=== PATIENT | male | born 1935 ===

== ENCOUNTER 2017-09-02 22:53 | Inpatient (IN) | payer MEDICARE, MEDICAID ==
[2017-09-02 22:53] VITALS: PULSE 87; BMI 25.8
[2017-09-02] MEDS ORDERED: Sodium Chloride 0.9% 1,000 ML IV STA (23:34)
[2017-09-03 00:06] LABS: ABG ALLEN TEST YES; ARTERIAL BLOOD GAS HCO3 30.2 mmol/L (21-28); ARTERIAL BLOOD GAS O2 SAT 99.9 % (95-98); ARTERIAL BLOOD GAS PCO2 32 mm/Hg (35-45); ARTERIAL BLOOD GAS PH 7.56 (7.35-7.45); ARTERIAL BLOOD GAS PO2 145 mm/Hg (80-100); ARTERIAL BLOOD GAS TCO2 29.7 mmol/L (22-28)
[2017-09-03 01:07] LABS: BASO % 0.2 % (0.0-2.0); EOS # 0.1 K/uL (0.0-0.7); EOS % 1.6 % (0.0-4.0); HEMOGLOBIN 8.8 g/dL (12.0-18.0); LYMPH # 0.8 K/uL (1.0-4.3); LYMPH % 11.4 % (20.0-40.0); MEAN CELL VOLUME 85.6 fl (80.0-94.0); MEAN CORPUSCULAR HEMOGLOBIN 28.1 pg (27.0-31.0); MEAN CORPUSCULAR HGB CONC 32.9 g/dL (33.0-37.0); MEAN PLATELET VOLUME 8.7 fl (7.2-11.7); MONO # 0.3 K/uL (0.0-0.8); MONO % 4.8 % (0.0-10.0); NEUT # 5.5 K/uL (1.8-7.0); NRBC % 0.1 % (0.0-0.0); RBC 3.14 Mil/uL (4.40-5.90); RED CELL DISTRIBUTION WIDTH 14.6 % (11.5-14.5); WHITE BLOOD COUNT 6.7 K/uL (4.8-10.8)
[2017-09-03 01:12] LABS: ALB/GLOB RATIO 1.2 (1.0-2.1); ALBUMIN 3.6 g/dL (3.5-5.0); ALT/SGPT 22 U/L (21-72); AST/SGOT 41 U/L (17-59); BLOOD UREA NITROGEN 27 mg/dl (9-20); CALCIUM 9.4 mg/dL (8.4-10.2); GFR AFRICAN-AMERICAN > 60; GFR NON-AFRICAN AMERICAN 58
[2017-09-03 01:18] LABS: INR 1.3 (0.9-1.2); PARTIAL THROMBOPLASTIN TIME 30.5 Seconds (25.6-37.1); PROTHROMBIN TIME 14.3 Seconds (9.8-13.1)
[2017-09-03] MEDS ORDERED: Azithromycin 500 MG in Sodium Chloride 0.9% 250 ML IVPB STA (01:21)
--- NOTE | 2017-09-03 01:22 | ED PDOC ---
History of Present Illness History of Present Illness: 81 year old male brought in by EMS presents to ED from detention for fever x24 hours and has a past medical history of advanced dementia, HTN, CAD, SVT, and CHF. On arrival patient's temperature is 102.9 degrees. PCP: Gerard iVera HPI: Influenza Time Seen by Provider: 09/02/17 23:01 Chief Complaint: Fever Chief Complaint (Provider): Fever History Per: EMS, Other (longterm) Exam Limitations: clinical condition (advanced dementia) Symptoms include: fever Risk factors for flu complications: Yes: adult > 65 years Past Medical History Reviewed: Historical Data, Nursing Documentation, Vital Signs Vital Signs: Last Vital Signs Temp 102.6 F H 09/02/17 23:59 Pulse 75 09/02/17 22:57 Resp 18 09/02/17 22:57 BP 103/51 L 09/02/17 22:57 Pulse Ox 100 09/02/17 22:57 - Medical History PMH: CAD (triple vessel disease), Diabetes, HTN, Hyperlipidemia, Parkinson's Disease - Surgical History Surgical History: CABG - Family History Family History: States: Unknown Family Hx - Living Arrangements Living Arrangements: [facility] - Immunization History Hx Tetanus Toxoid Vaccination: No Hx Influenza Vaccination: No Hx Pneumococcal Vaccination: No - Home Medications Home Medications: Ambulatory Orders Medication Instructions Recorded Benztropine [Cogentin] 0.5 mg PO BID 08/21/15 Donepezil [Aricept] 10 mg PO DAILY 08/21/15 Entacapone [Comtan] 200 mg PO TID 08/21/15 Magnesium Oxide [Magnesium] 400 mg PO BID 08/21/15 Rasagiline Mesylate [Azilect] 1 mg PO DAILY 08/21/15 Rivastigmine 4.6 mg/24 hr [Exelon 4.6 mg TD Q24H 08/21/15 4.6 mg/24 hr Patch] Simvastatin 20 mg PO HS 08/21/15 Tamsulosin [Flomax] 0.4 mg PO DAILY 08/21/15 rOPINIRole [Requip] 1 mg PO TID 08/21/15 tiZANidine [Zanaflex] 2 mg PO BID 08/21/15 Aspirin [Aspirin Chewable] 81 mg PO DAILY 09/08/15 Fenofibrate [Tricor] 145 mg PO HS #0 tab 09/17/15 Insulin Human Regular [Novolin R] 0 unit SC ACHS #0 unit 09/17/15 Memantine [Namenda] 5 mg PO BID #0 tab 09/17/15 Metoprolol Succinate 100 mg PO DAILY #0 09/17/15 Midodrine [Proamatine] 2.5 mg PO DAILY #0 tab 09/17/15 Pantoprazole [Protonix Susp] 40 mg PO DAILY #0 packet 09/17/15 Carbidopa/Levodopa 50/200 CR 1 tab PO Q6H #0 tab 09/21/15 [Sinemet CR] - Allergies Allergies/Adverse Reactions: Allergies Allergy/AdvReac Type Severity Reaction Status Date / Time No Known Allergies Allergy Verified 09/02/17 22:55 Review of Systems Review Of Systems: ROS cannot be obtained secondary to pt's inabilty to answer questions. (cannot be obtained due to patient's clinical condition) Physical Exam - Reviewed Nursing Documentation Reviewed: Yes Vital Signs Reviewed: Yes - Physical Exam Appears: Positive for: No Acute Distress (Patient is febrile) Skin: Positive for: Warm, Dry, Pallor. Negative for: Normal Color ENT: Negative for: Normal ENT Inspection (tacky mucous membranes) Cardiovascular/Chest: Positive for: Regular Rate, Rhythm. Negative for: Murmur Respiratory: Positive for: Normal Breath Sounds. Negative for: Respiratory Distress Gastrointestinal/Abdominal: Positive for: Soft. Negative for: Tenderness Neurologic/Psych: Positive for: Alert, Aphasia (patient attempts to speak but it is unintelligible) Medical Decision Making Medical Decision Makin Initial impression: febrile illness of undetermined source Initial plan: * ABG shock panel * Labs * Trop I * UDip * PTT/PT * CXR * NS IV * Acetaminophen 965mg PO * BCx * UCx * Accucheck 0143 Labs reviewed: positive troponin CXR: left-sided infiltrate * ASA 324mg PO * Lovenox 60mg SC * Rocephin IVPB * Zithromac IVPB Discussed case with Dr. Hutchinson (hospitlaist), who accepts patient under his care. Patient will be admitted for PNA and STEMI (INPATIENT TELE) Scribe Attestation: Documented by Shruti Pino acting as a scribe for Siva Martínez MD. Scribe Attestation: All medical record entries made by the Scribe were at my direction and personally dictated by me. I have reviewed the chart and agree that the record accurately reflects my personal performance of the history, physical exam, medical decision making, and the department course for this patient. I have also personally directed, reviewed, and agree with the discharge instructions and disposition. - Laboratory Results Result Diagrams: 09/02/17 00:18 09/02/17 00:18 - ECG O2 Sat by Pulse Oximetry: 100 (RA) Pulse Ox Interpretation: Normal - Critical Care Total Time (In Min): 30 Disposition - Clinical Impression Clinical Impression: NSTEMI (non-ST elevated myocardial infarction), Pneumonia, Sepsis, HCAP ( healthcare-associated pneumonia) - Patient ED Disposition Is Patient to be Admitted: Yes - Disposition Disposition Time: 01:19 Condition: FAIR - Pt Status Changed To: Hospital Disposition Of: Inpatient (INPATIENT TELE) - Admit Certification Admit to Inpatient:: After my assessment, the patient will require hospitalization for at least two midnights. This is because of the severity of symptoms shown, intensity of services needed, and/or the medical risk in this patient being treated as an outpatient.
[2017-09-03] MEDS ORDERED: Enoxaparin 80 mg Syringe SC STA (01:50)
[2017-09-03] MEDS ORDERED: Albuterol-Ipratrop 3 mg / 0.5 (3 ml) UD INH PRN (02:05)
--- NOTE | 2017-09-03 02:17 | CP.PCM.HP ---
History of Present Illness - History of Present Illness History of Present Illness: CC: Fever; found to have NSTEMI HPI: This is an 81 y/o male from [place] with known CAD, ?CHF, HTN, HLD, DM2, and Parkinson's disease who is brought in by EMS because of ~1 day of fevers at [place]. Patient is not able to provide any information, he is somnolent; History is limited to chart/ER staff. ROS: Cannot obtain 2/2 patient mental status MHx: CAD, ?CHF, HTN, HLD, DM2, and Parkinson's disease SHx: Reported CABG, but no evidence of sternotomy obvious on CXR Allergies: NKDA Medications: Per med rec Family Hx: Cannot obtain Social Hx: Lives in [place], no tobacco or EtOH Surrogate: Pending Present on Admission - Present on Admission Any Indicators Present on Admission: No Past Patient History - Past Medical History & Family History Past Medical History?: Yes - Past Social History Smoking Status: Former Smoker - CARDIAC Hx Hypertension: Yes - PULMONARY Hx Respiratory Disorders: No - NEUROLOGICAL Hx Parkinson's Disease: Yes - RENAL Other/Comment: PROSTATE CA - ENDOCRINE/METABOLIC Hx Endocrine Disorders: Yes Hx Diabetes Mellitus Type 2: Yes - HEMATOLOGICAL/ONCOLOGICAL Hx Blood Disorders: No Hx Cancer: Yes (prostate) - MUSCULOSKELETAL/RHEUMATOLOGICAL Hx Musculoskeletal Disorders: No Hx Falls: Yes - GASTROINTESTINAL Hx Gastrointestinal Disorders: No - GENITOURINARY/GYNECOLOGICAL Hx Prostate Cancer: Yes - PSYCHIATRIC Hx Substance Use: No - SURGICAL HISTORY Hx Coronary Artery Bypass Graft: Yes - ANESTHESIA Hx Anesthesia: Yes Hx Anesthesia Reactions: No Meds Allergies/Adverse Reactions: Allergies Allergy/AdvReac Type Severity Reaction Status Date / Time No Known Allergies Allergy Verified 09/02/17 22:55 Physical Exam - Constitutional Appears: No Acute Distress Additional comments: somnolent, rousable but not a/o - Head Exam Head Exam: ATRAUMATIC, NORMOCEPHALIC - Eye Exam Eye Exam: EOMI, PERRL - ENT Exam ENT Exam: Mucous Membranes Dry - Neck Exam Neck exam: Positive for: Full Rom - Respiratory Exam Respiratory Exam: Decreased Breath Sounds, Rhonchi, NORMAL BREATHING PATTERN - Cardiovascular Exam Cardiovascular Exam: REGULAR RHYTHM, +S1, +S2 - GI/Abdominal Exam GI & Abdominal Exam: Normal Bowel Sounds, Soft - Extremities Exam Extremities exam: Positive for: full ROM, normal inspection - Neurological Exam Additional comments: somnolent, rousable but does not answer questions or follow commands - Skin Skin Exam: Dry, Warm Results - Vital Signs Recent Vital Signs: Last Vital Signs Temp 102.6 F H 09/02/17 23:59 Pulse 75 09/02/17 22:57 Resp 18 09/02/17 22:57 BP 103/51 L 09/02/17 22:57 Pulse Ox 100 09/03/17 01:22 - Labs Result Diagrams: 09/02/17 00:18 09/02/17 00:18 Labs: Laboratory Results - last 24 hr 09/02/17 09/02/17 09/02/17 00:18 00:18 00:18 WBC 6.7 RBC 3.14 L Hgb 8.8 L Hct 26.9 L MCV 85.6 MCH 28.1 MCHC 32.9 L RDW 14.6 H Plt Count 202 MPV 8.7 Neut % (Auto) 82.0 H Lymph % (Auto) 11.4 L [place] % (Auto) 4.8 Eos % (Auto) 1.6 Baso % (Auto) 0.2 Neut # (Auto) 5.5 Lymph # (Auto) 0.8 L [place] # (Auto) 0.3 Eos # (Auto) 0.1 Baso # (Auto) 0.0 PT 14.3 H INR 1.3 H APTT 30.5 pCO2 pO2 HCO3 ABG pH ABG Total CO2 ABG O2 Saturation ABG Base Excess Charles Test ABG Potassium A-a O2 Difference Glucose Lactate Vent Mode FiO2 Sodium 143 Potassium 4.2 Chloride 106 Carbon Dioxide 24 Anion Gap 17 BUN 27 H Creatinine 1.2 Est GFR ( Amer) > 60 Est GFR (Non-Af Amer) 58 POC Glucose (mg/dL) Random Glucose 208 H Calcium 9.4 Total Bilirubin 0.5 AST 41 ALT 22 Alkaline Phosphatase 51 Troponin I 3.3000 H* Total Protein 6.7 Albumin 3.6 Globulin 3.1 Albumin/Globulin Ratio 1.2 Arterial Blood Potassium Influenza Typ A,B (EIA) 09/02/17 09/02/17 09/02/17 00:18 23:52 23:59 WBC RBC Hgb Hct MCV MCH MCHC RDW Plt Count MPV Neut % (Auto) Lymph % (Auto) [place] % (Auto) Eos % (Auto) Baso % (Auto) Neut # (Auto) Lymph # (Auto) [place] # (Auto) Eos # (Auto) Baso # (Auto) PT INR APTT pCO2 32 L pO2 145 H HCO3 30.2 H ABG pH 7.56 H ABG Total CO2 29.7 H ABG O2 Saturation 99.9 H ABG Base Excess 6.7 H Charles Test Yes ABG Potassium 4.5 A-a O2 Difference 528.0 Glucose 222 H Lactate 1.5 Vent Mode 100%nrb FiO2 100.0 Sodium 140.0 Potassium Chloride 110.0 H Carbon Dioxide Anion Gap BUN Creatinine Est GFR ( Amer) Est GFR (Non-Af Amer) POC Glucose (mg/dL) 190 H Random Glucose Calcium Total Bilirubin AST ALT Alkaline Phosphatase Troponin I Total Protein Albumin Globulin Albumin/Globulin Ratio Arterial Blood Potassium 4.5 Influenza Typ A,B (EIA) Negative for flu a/b - EKG Data EKG Interpreted by: Myself EKG shows normal: Sinus rhythm Rate: Normal - EKG Data EKG comments: no LEIGHANN/D - Imaging and Cardiology Chest x-ray Status: Image reviewed by me (L sided infiltrate) Assessment & Plan (1) NSTEMI (non-ST elevated myocardial infarction) Assessment and Plan: 81 y/o male with HTN, HLD, CAD, ?DM2, and Parkinson's dementia presenting with possible HCAP with sepsis and NSTEMI. 1) NSTEMI/CAD/HLD -Admit ICU -Serial trops -AM EKG -AM Echo -ASA, Plavix load 300 + daily 75 mg, Lovenox 1 mg/kg q12h -Cardiology consult in AM 2) ?HCAP with sepsis -Cont IVF for now, careful to avoid vol o/l -Continue Ceftriaxone IV + add LVQ IV; consider broadening to Vanc + Zosyn if patient condition worsens -Duonebs -Tylenol for fever -Hold b-Hortencia for now given low BP; consider resuming in AM 3) DM2 -- DM diet, accucheck ACHS with SSI for now 4) DVT PPx -- on therapeutic lovenox Status: Acute (2) CAD (coronary artery disease) Status: Acute (3) Diabetes Status: Acute (4) Fever Status: Acute (5) HCAP (healthcare-associated pneumonia) Status: Acute
[2017-09-03] MEDS ORDERED: cefTRIAXone (Rocephin) 1 gm Inj ONE (02:19)
[2017-09-03] MEDS ORDERED: Enoxaparin 60 mg Syringe SC STA (03:29)
[2017-09-03 04:09] LABS: URINE BACTERIA MANY (<OCC); URINE BILIRUBIN NEGATIVE (NEGATIVE); URINE BLOOD NEGATIVE (NEGATIVE); URINE CLARITY CLOUDY (Clear); URINE COLOR AMBER (YELLOW); URINE GLUCOSE (UA) NEG (Normal); URINE LEUKOCYTE ESTERASE NEG Leu/uL (Negative); URINE PROTEIN 30 mg/dL (NEGATIVE); URINE UROBILINOGEN 0.2-1.0 mg/dL (0.2-1.0)
[2017-09-03] MEDS: Carbidopa/Levodopa 50/200 CR PO SCH ×5 (05:23→20:38)
[2017-09-03] MEDS: Lactated Ringer's 1,000 ML IV SCH ×2 (05:34→16:43)
[2017-09-03] MEDS ORDERED: levoFLOXacin 750 mg in D5W 150 ML BAG IVPB SCH (09:00)
--- NOTE | 2017-09-03 09:08 | RAD ---
HISTORY: chest pain COMPARISON: No prior. FINDINGS: LUNGS: Airspace disease identified overlying the left hemidiaphragm but not silhouetting it. None is seen the right. PLEURA: No significant pleural effusion identified, no pneumothorax apparent. CARDIOVASCULAR: Normal. OSSEOUS STRUCTURES: No significant abnormalities. VISUALIZED UPPER ABDOMEN: Normal. OTHER FINDINGS: None. IMPRESSION: Limited infiltrate or atelectasis suspected at the left infrahilar/ basilar region with remainder of the exam unremarkable.
[2017-09-03] MEDS: Insulin Lispro (humaLOG) 100 Units/ml Inj SC SCH ×3 (11:30→21:30)
[2017-09-03] MEDS: levoFLOXacin 750 mg in D5W 750 MG/150 ML BAG IVPB SCH (16:39)
[2017-09-03] MEDS: Pantoprazole 40 mg EC Tab PO SCH (18:17)
[2017-09-03] MEDS: Metoprolol Succinate 100 mg XL Tab PO SCH (18:18)
--- NOTE | 2017-09-03 19:54 | CP.PCM.PN ---
Subjective - Date & Time of Evaluation Date of Evaluation: 09/03/17 Time of Evaluation: 13:00 - Subjective Subjective: Patient was seen and examined bedside. Elderly, chronically ill male , cachetic , [place] resident, bed bound with muscle contracture ,lying in bed , non verbal , febrile Tmax 102.9 . bedside states that patient sometimes has periods of lucidity , opens his eyes but baseline is bed bound and not really verbal due to Parkinsonism WBC 7 K BUN 27 Trop 1.7 Hgb 8.8 CXR showed possible Left hilar infiltrate infiltrate BP 96/75 RR 29-34 saturating 96 % on 2 L O2 via NC Objective - Vital Signs/Intake and Output Vital Signs (last 24 hours): Temp Pulse Resp BP Pulse Ox 100.8 F H 79 43 H 97/37 L 97 09/03/17 16:35 09/03/17 18:18 09/03/17 18:00 09/03/17 18:18 09/03/17 18:00 Intake and Output: 09/03/17 09/04/17 18:59 06:59 Intake Total 1050 Output Total 1300 Balance -250 - Medications Medications: Current Medications Acetaminophen (Tylenol 650 Mg Supp) 650 mg ND Q4 PRN PRN Reason: Temperature Last Admin: 09/03/17 18:24 Dose: 650 mg Albuterol/Ipratropium (Duoneb 3 Mg/0.5 Mg (3 Ml) Ud) 3 ml INH RQ6 PRN PRN Reason: Shortness of Breath Aspirin (Aspirin) 325 mg PO DAILY [facility] Last Admin: 09/03/17 18:19 Dose: 325 mg Atorvastatin Calcium (Lipitor) 40 mg PO DAILY [facility] Benztropine Mesylate (Cogentin) 0.5 mg PO BID [facility] Carbidopa/Levodopa (Sinemet Cr) 1 tab PO Q6H [facility] Last Admin: 09/03/17 18:18 Dose: 1 tab Clopidogrel Bisulfate (Plavix) 75 mg PO DAILY [facility] Donepezil HCl (Aricept) 10 mg PO DAILY [facility] Enoxaparin Sodium (Lovenox) 60 mg SC Q12 TONE PRN Reason: Protocol Entacapone (Comtan) 200 mg PO TID [facility] Last Admin: 09/03/17 18:20 Dose: Not Given Fenofibrate (Tricor) 145 mg PO HS [facility] Levofloxacin/Dextrose (Levaquin 750mg) 750 mg in 150 mls @ 100 mls/hr IVPB DAILY [facility] Last Admin: 09/03/17 16:39 Dose: 100 mls/hr Lactated Ringer's (Lactated Ringer's) 1,000 mls @ 100 mls/hr IV .Q10H [facility] Stop: 09/03/17 21:59 Last Admin: 09/03/17 16:43 Dose: 100 mls/hr Insulin Human Lispro (Humalog) 0 units SC ACHS [facility] PRN Reason: Protocol Last Admin: 09/03/17 16:38 Dose: 1 unit Memantine (Namenda) 5 mg PO BID [facility] Last Admin: 09/03/17 18:17 Dose: Not Given Metoprolol Succinate (Toprol Xl) 100 mg PO DAILY [facility] Last Admin: 09/03/17 18:18 Dose: Not Given Pantoprazole Sodium (Protonix Ec Tab) 40 mg PO DAILY [facility] Last Admin: 09/03/17 18:17 Dose: 40 mg Tamsulosin HCl (Flomax) 0.4 mg PO DAILY [facility] Last Admin: 09/03/17 18:19 Dose: 0.4 mg - Labs Labs: 09/02/17 00:18 09/02/17 00:18 PT 14.3 Seconds (9.8-13.1) H 09/02/17 00:18 INR 1.3 (0.9-1.2) H 09/02/17 00:18 APTT 30.5 Seconds (25.6-37.1) 09/02/17 00:18 - Constitutional Appears: Cachectic, Chronically Ill, Other (with muscle contrcature , non verbal ) - Head Exam Head Exam: ATRAUMATIC, NORMOCEPHALIC - ENT Exam ENT Exam: Mucous Membranes Dry - Neck Exam Neck Exam: Normal Inspection - Respiratory Exam Respiratory Exam: Clear to Ausculation Bilateral. absent: Rhonchi, Wheezes - Cardiovascular Exam Cardiovascular Exam: REGULAR RHYTHM, +S1, +S2. absent: JVD - GI/Abdominal Exam GI & Abdominal Exam: Soft, Normal Bowel Sounds. absent: Distended, Guarding, Rebound - Rectal Exam Rectal Exam: Deferred - Exam Additional comments: de la o present - Extremities Exam Extremities Exam: Normal Inspection. absent: Pedal Edema - Back Exam Back Exam: NORMAL INSPECTION - Neurological Exam Additional comments: lethargic, not following commands keeps eyes closed with muscle contracture - Skin Skin Exam: Dry, Pallor, Warm Assessment and Plan - Assessment and Plan (Free Text) Assessment: 81 y/o male with PMH HTN, HLD, CAD, ?DM2, Parkinson's dementia , bed bound [place] for [place] episodes. Tmax 102.9 in ER WBC 7 K CXR showed possible left hilar infiltrate Patient found to have elevated Trop 3.3 Patient admitted for NSTEMI and possible HCAP 1. Sepsis patient is tachycardic , tachypneic febrile with possible left hilar infiltrate unclear source possible secondary to HCAP CXR showed left hilar infiltrate Follow up blood and urine cx aspiration precautions Patient on thickened water and pureed diet due to dysphagia in [place] as per Received rocephin and Zithromax IV x 1 dose. On Levaquine IV for now Repeat CXR in AM after hydration Tylenol for fever Hold Beta manav since BP in the lower side Continue hydration 2.NSTEMI/ CAD troponin elevate 3.3 but trending down to 1.7 cardiology consulted Continue ASa, Sttain, Lovenox threrapeutic , Plavix follow up Echo 3. DM2 DM diet, accucheck ACHS with SSI for now 4. Parkinsonism / Frailty bed bound , non verbal , with muscle contracture Continue Carbidopa /comtan/ cogentin Aricept for dementia DNR/DNI 5. HTN hold BP meds due to low BP 6.HCAP on levaquin eIV Aspiration precautions follow up cultures repeat CXR in AM 7.DVT PPx on therapeutic lovenox
[2017-09-03] MEDS: Enoxaparin 60 mg Syringe SC SCH (20:39)
--- NOTE | 2017-09-03 23:34 | CT ---
EXAM: CT Head Without Intravenous Contrast CLINICAL HISTORY: 81 years old, male; Signs and symptoms; Other: R/O CVA; Patient HX: Parkinson's TECHNIQUE: Axial computed tomography images of the head/brain without intravenous contrast. All CT scans at this facility use one or more dose reduction techniques, viz.: automated exposure control; ma/kV adjustment per patient size (including targeted exams where dose is matched to indication; i.e. head); or iterative reconstruction technique. Coronal and sagittal reformatted images were created and reviewed. COMPARISON: No relevant prior studies available. FINDINGS: Brain: Moderate atrophy. No intracranial hemorrhage. No mass. Several scattered foci of decreased attenuation within periventricular/subcortical white matter. No definite edema. Ventricles: No hydrocephalus. Bones/joints: No acute fracture. Soft tissues: Unremarkable. Vasculature: Atherosclerotic disease of intracranial arteries. Sinuses: Near complete opacification/fluid of RIGHT sphenoid sinus. Scattered minimal to mild mucosal thickening of remaining sinuses. Small RIGHT maxillary retention cyst. Mastoid air cells: Partial opacification of RIGHT mastoid. Orbits: Unremarkable as visualized. IMPRESSION: 1. Nonspecific white matter changes. Acute infarction may be CT occult within first 24 hours. If a focal deficit persists, consider followup CT or MRI for further evaluation. 2. Sinus disease. 3. Mastoid disease. 4. Incidental/non-acute findings are described above.
--- NOTE | 2017-09-03 23:34 | CARD ---
APPROVED REPORT EXAM: Two-dimensional and M-mode echocardiogram with Doppler and color Doppler. Other Information Quality : AverageRhythm : NSR Technically limited study due to Limited 4C views INDICATION Elevated Troponin 2D DIMENSIONS IVSd0.91 (0.7-1.1cm)LVDd4.75 (3.9-5.9cm) LVOT Diameter1.91 (1.8-2.4cm)PWd1.06 (0.7-1.1cm) IVSs0.73 (0.8-1.2cm)LVDs4.33 (2.5-4.0cm) FS (%) 8.9 %PWs1.15 (0.8-1.2cm) LVEF (%)55.0 (>50%) M-Mode DIMENSIONS Left Atrium (MM)5.25 (2.5-4.0cm)Aortic Root3.63 (2.2-3.7cm) Aortic Cusp Exc.1.63 (1.5-2.0cm) Mitral Valve E/A ratio0.0 TDI E/Lateral E'0.0E/Medial E'0.0 LEFT VENTRICLE The left ventricle is normal size. There is mild concentric left ventricular hypertrophy. The left ventricular function is normal. The left ventricular ejection fraction is within the normal range. There is normal LV segmental wall motion. Transmitral Doppler flow pattern is Grade I-abnormal relaxation pattern. RIGHT VENTRICLE The right ventricle is normal size. There is normal right ventricular wall thickness. The right ventricular systolic function is normal. ATRIA The left atrium is mildly dilated. The right atrium size is normal. AORTIC VALVE The aortic valve is moderately calcified. There is moderate aortic regurgitation. There is trace valvular aortic stenosis. MITRAL VALVE The mitral valve is mildly thickened. There is no mitral valve stenosis. There is no mitral valve regurgitation noted. TRICUSPID VALVE The tricuspid valve is normal in structure. There is no tricuspid valve regurgitation noted. PULMONIC VALVE The pulmonary valve is normal in structure. There is no pulmonic valvular regurgitation. GREAT VESSELS The aortic root is normal in size. The IVC was not visualized. PERICARDIAL EFFUSION The pericardium appears normal. <Conclusion> The left ventricle is normal size. There is mild concentric left ventricular hypertrophy. The left ventricular function is normal. The left ventricular ejection fraction is within the normal range. There is normal LV segmental wall motion. Transmitral Doppler flow pattern is Grade I-abnormal relaxation pattern. The aortic valve is moderately calcified. There is moderate aortic regurgitation.
--- NOTE | 2017-09-03 23:59 | CARD ---
APPROVED REPORT EKG Measurement Heart [id number] <Conclusion> Sinus rhythm ST & T wave abnormality, consider anterior ischemia Prolonged QT Abnormal ECG
--- NOTE | 2017-09-04 01:21 | CON ---
CARDIOLOGY CONSULTATION DATE: REASON FOR CONSULTATION: Non-ST elevation myocardial infarction and abnormal EKG. History was obtained from the patient's son on the phone and from the view of the current and old records. HISTORY OF PRESENT ILLNESS: The patient is an 81-year-old male who has a history of parkinsonism, history of severe 3-vessel coronary artery disease; however, the patient was not a candidate for open heart surgery and did not undergo any intervention according to the patient's son. The patient is a senior care resident since he sustained a major stroke 3 years ago. The patient was admitted because of fever and was found to have left lower lobe pneumonia. Cardiac enzymes were elevated. There is no reported hypotension or ventricular arrhythmia since the patient's presentation to the ICU. The patient is nonverbal and does not give any history. PAST MEDICAL HISTORY: Hypertension, coronary artery disease, parkinsonism, and stroke. SOCIAL HISTORY: The patient is a nonsmoker. He is a senior care resident. and has children. REVIEW OF SYSTEMS: According to the son, the patient has been having very poor oral intake lately and a gastrostomy feeding tube placement was considered. MEDICATIONS: Aricept 10 mg once a day, aspirin 325 mg once a day, Cogentin 0.5 mg twice a day, albuterol inhaler every 6 hours, Flomax 0.4 mg daily, Levaquin 750 mg intravenously daily, Lipitor 40 mg once a day, Lovenox 60 mg subcutaneously twice a day, Namenda 5 mg twice a day, Plavix 75 mg daily, Sinemet one tablet every 6 hours, Toprol-XL 100 mg daily, and TriCor 145 mg once a day. PHYSICAL EXAMINATION: GENERAL: The patient is an elderly male who does not appear to be in acute distress. VITAL SIGNS: Blood pressure 96/57, heart rate 82, temperature 99.7, and the highest temperature today was 102.9. HEENT: Pale conjunctivae. CHEST: Excellent breath sounds over the bases. HEART: S1 and S2 regular. ABDOMEN: Soft. EXTREMITIES: Contracted lower extremities. No edema. LABORATORY DATA: SMA-7; sodium 143, potassium 4.2, chloride 106, CO2 of 24, glucose 208, BUN 27, and creatinine 1.2. Troponins were as follows 3.3, followed by 2.94 and the last one this afternoon is 1.76. INR is 1.3 and PTT is 30.5. Hemoglobin, hematocrit 8.8 and 26.9 and white count and platelet count are within normal limits. EKG revealed sinus rhythm, significant baseline artifacts, prolonged QT intervals, and consider anterior ischemia. Chest x-ray revealed left lower lobe infiltrate and prominent bronchovascular markings. Cardiac catheterization in 08/2015 findings were consistent with 95% calcific stenosis of the proximal LAD, 95% of calcific stenosis of the proximal circumflex artery, and 90% stenosis of the mid right coronary artery. ASSESSMENT: 1. Consider acute non-ST elevation myocardial infarction. 2. Left lower lobe pneumonia. 3. Rule out underlying sepsis. 4. History of cerebrovascular accident. 5. Parkinsonism. 6. Anemia. RECOMMENDATIONS: Continue current aspirin 325 mg once a day, IV Levaquin 750 mg intravenously daily, Lipitor 40 mg once a day, therapeutic subcutaneous Lovenox 60 mg once a day, Plavix 75 mg once a day, Toprol-XL 100 mg once a day, and TriCor at 145 mg once a day. We will review the echocardiographic study performed today. Obtain head CT scan without contrast. Lauro Alonzo MD
[2017-09-04] MEDS: Carbidopa/Levodopa 50/200 CR PO SCH ×5 (02:15→21:31)
[2017-09-04] MEDS: Dextrose 5%/0.45% NS 1,000 ML IV SCH ×2 (03:21→13:41)
[2017-09-04 05:48] LABS: BLOOD UREA NITROGEN 17 mg/dl (9-20); CALCIUM 8.8 mg/dL (8.4-10.2); GFR AFRICAN-AMERICAN > 60; GFR NON-AFRICAN AMERICAN > 60
[2017-09-04 06:05] LABS: HEMOGLOBIN 8.1 g/dL (12.0-18.0); MEAN CELL VOLUME 85.1 fl (80.0-94.0); MEAN CORPUSCULAR HEMOGLOBIN 28.4 pg (27.0-31.0); MEAN CORPUSCULAR HGB CONC 33.4 g/dL (33.0-37.0); RBC 2.87 Mil/uL (4.40-5.90); RED CELL DISTRIBUTION WIDTH 14.3 % (11.5-14.5); WHITE BLOOD COUNT 6.3 K/uL (4.8-10.8)
[2017-09-04] MEDS: Insulin Lispro (humaLOG) 100 Units/ml Inj SC SCH ×4 (07:30→21:43)
[2017-09-04] MEDS: Enoxaparin 60 mg Syringe SC SCH ×2 (09:56→21:32)
[2017-09-04] MEDS: Metoprolol Succinate 100 mg XL Tab PO SCH ×2 (09:58→13:41)
[2017-09-04] MEDS: Pantoprazole 40 mg EC Tab PO SCH ×2 (09:58→13:40)
--- NOTE | 2017-09-04 10:07 | RAD ---
PROCEDURE: CHEST RADIOGRAPH, 1 VIEW HISTORY: r/o pneumonia COMPARISON: Chest radiograph dated 09/03/2017 FINDINGS: LUNGS: Stable chronic prominence of the bilateral interstitial markings. No focal consolidation. Left basilar atelectasis/ scarring. PLEURA: No pneumothorax or pleural fluid seen. CARDIOVASCULAR: Atherosclerotic aortic calcifications. Cardiomediastinal silhouette unchanged. OSSEOUS STRUCTURES: Unchanged. VISUALIZED UPPER ABDOMEN: Normal. OTHER FINDINGS: None. IMPRESSION: Left basilar atelectasis/scarring.
[2017-09-04] MEDS: levoFLOXacin 750 mg in D5W 750 MG/150 ML BAG IVPB SCH (13:40)
--- NOTE | 2017-09-04 16:06 | CP.PCM.PN ---
Subjective - Date & Time of Evaluation Date of Evaluation: 09/04/17 Time of Evaluation: 09:00 - Subjective Subjective: Patient was seen and examined bedside. Elderly, chronically ill male , cachetic , [place] resident, bed bound with muscle contracture ,lying in bed , non verbal , keeping eyes closed Tmax 100.8 last 24 hours WBC 6 K Procalcitonin 6.25 Urine cx positive for gram negative sohan . Objective - Vital Signs/Intake and Output Vital Signs (last 24 hours): Temp Pulse Resp BP Pulse Ox 99.5 F 96 H 27 H 147/75 100 09/04/17 12:00 09/04/17 13:41 09/04/17 12:00 09/04/17 13:41 09/04/17 12:00 Intake and Output: 09/04/17 09/04/17 06:59 18:59 Intake Total 2050 Output Total 1300 Balance 750 - Medications Medications: Current Medications Acetaminophen (Tylenol 650 Mg Supp) 650 mg DC Q4 PRN PRN Reason: Temperature Last Admin: 09/03/17 18:24 Dose: 650 mg Albuterol/Ipratropium (Duoneb 3 Mg/0.5 Mg (3 Ml) Ud) 3 ml INH RQ6 PRN PRN Reason: Shortness of Breath Aspirin (Aspirin) 325 mg PO DAILY [facility] Last Admin: 09/04/17 13:39 Dose: 325 mg Atorvastatin Calcium (Lipitor) 40 mg PO DAILY [facility] Last Admin: 09/04/17 13:40 Dose: 40 mg Benztropine Mesylate (Cogentin) 0.5 mg PO BID [facility] Last Admin: 09/04/17 09:57 Dose: Not Given Carbidopa/Levodopa (Sinemet Cr) 1 tab PO Q6H [facility] Last Admin: 09/04/17 13:41 Dose: 1 tab Clopidogrel Bisulfate (Plavix) 75 mg PO DAILY [facility] Last Admin: 09/04/17 13:40 Dose: 75 mg Donepezil HCl (Aricept) 10 mg PO DAILY [facility] Last Admin: 09/04/17 13:38 Dose: 10 mg Enoxaparin Sodium (Lovenox) 60 mg SC Q12 TONE PRN Reason: Protocol Last Admin: 09/04/17 09:56 Dose: 60 mg Entacapone (Comtan) 200 mg PO TID [facility] Last Admin: 03/27/18 13:39 Dose: 200 mg Fenofibrate (Tricor) 145 mg PO HS [facility] Last Admin: 09/03/17 21:04 Dose: Not Given Levofloxacin/Dextrose (Levaquin 750mg) 750 mg in 150 mls @ 100 mls/hr IVPB DAILY [facility] Last Admin: 09/04/17 13:40 Dose: 100 mls/hr Dextrose/Sodium Chloride (Dextrose 5%/0.45% Ns 1000 Ml) 1,000 mls @ 100 mls/hr IV .Q10H [facility] Stop: 09/05/17 02:53 Last Admin: 09/04/17 13:41 Dose: 100 mls/hr Insulin Human Lispro (Humalog) 0 units SC ACHS [facility] PRN Reason: Protocol Last Admin: 09/04/17 13:39 Dose: Not Given Memantine (Namenda) 5 mg PO BID [facility] Last Admin: 09/04/17 13:40 Dose: 5 mg Metoprolol Succinate (Toprol Xl) 100 mg PO DAILY [facility] Last Admin: 09/04/17 13:41 Dose: 100 mg Pantoprazole Sodium (Protonix Ec Tab) 40 mg PO DAILY [facility] Last Admin: 09/04/17 13:40 Dose: 40 mg Tamsulosin HCl (Flomax) 0.4 mg PO DAILY [facility] Last Admin: 09/04/17 13:39 Dose: 0.4 mg - Labs Labs: 09/04/17 04:50 09/04/17 04:50 PT 14.3 Seconds (9.8-13.1) H 09/02/17 00:18 INR 1.3 (0.9-1.2) H 09/02/17 00:18 APTT 30.5 Seconds (25.6-37.1) 09/02/17 00:18 - Constitutional Appears: No Acute Distress, Cachectic, Chronically Ill, Other (frail , contracted , non verbal ) - Head Exam Head Exam: ATRAUMATIC, NORMOCEPHALIC - ENT Exam ENT Exam: Mucous Membranes Dry - Neck Exam Neck Exam: Normal Inspection - Respiratory Exam Respiratory Exam: absent: Accessory Muscle Use, Wheezes, Respiratory Distress Additional comments: coarse breath sounds bilaterally - Cardiovascular Exam Cardiovascular Exam: REGULAR RHYTHM, RRR, +S1, +S2. absent: JVD - GI/Abdominal Exam GI & Abdominal Exam: Soft, Normal Bowel Sounds. absent: Distended, Guarding, Tenderness, Rebound - Rectal Exam Rectal Exam: Deferred - Extremities Exam Extremities Exam: absent: Pedal Edema Additional comments: muscle contracture - Neurological Exam Additional comments: lethargic , non verbal not following commands - Skin Skin Exam: Dry, Pallor, Warm Additional comments: stage II decubitus Assessment and Plan - Assessment and Plan (Free Text) Assessment: 81 y/o male with PMH HTN, HLD, CAD, ?DM2, Parkinson's dementia , bed bound sent from [place] for fever episodes. Tmax 102.9 in ER WBC 7 K CXR showed possible left hilar infiltrate Patient found to have elevated Trop 3.3 Patient admitted for NSTEMI and possible HCAP At present hemodynamically stable, frail , cachetic . Procalcitonin elevated , urine cx growing gram negative sohan WBC 6 K , Tmax 100.8 last 24 hours 1. Sepsis patient was tachycardic , tachypneic febrile with possible left hilar infiltrate , Procalcitonin elevated CXR showed possible left hilar infiltrate . Repeat CXr today showed atelectasis urine cx growing gram negative rods Follow up blood cx Most likely UTI source of sepsis Continue aspiration precautions Dysphagia modified diet ,thickened liquids and pureed diet Received rocephin and Zithromax IV x 1 dose. On Levaquine IV for now Tylenol for fever Continue hydration 2.NSTEMI/ CAD troponin elevate 3.3 but trending down to 1.7 cardiology consulted Continue ASa, Statin, Lovenox therapeutic , Plavix resume Metoprolol ( home medication) Echo showed normal EF and wall motion ,LVH 3. DM2 DM diet, accucheck ACHS with SSI for now 4. Parkinsonism / Frailty bed bound , non verbal , with muscle contracture Continue Carbidopa /comtan/ cogentin Aricept for dementia DNR/DNI 5. HTN restarted metoprolol 6.HCAP less likely repeat CXR showed no infiltrate on levaquine IV Aspiration precautions 7. Anemia most likley anemia of chronic disease Hgb 8.1 monitor for now 8.DVT PPx on lovenox
--- NOTE | 2017-09-04 20:36 | PN ---
DATE: SUBJECTIVE: No reported ventricular tachycardia or hypotension. PHYSICAL EXAMINATION: VITAL SIGNS: Blood pressure 93/45, heart rate 70, temperature 99.7, and respirations 30. HEENT: Pale conjunctivae. CHEST: Diminished breath sounds over the bases with scattered bilateral rhonchi. HEART: S1 and S2 regular. ABDOMEN: Soft. EXTREMITIES: There are no pedal edema. LABORATORY DATA: Hemoglobin and hematocrit 8.1 and 24.4, white count and platelet counts are within normal limits. SMA-7 is within normal limits except for glucose 147 and chloride of 111. Phosphorus within normal at 2.3. Today, chest x-ray revealed bilateral hilar infiltrate, borderline cardiomegaly. Echocardiographic study done yesterday revealed mild concentric LVH with normal systolic function and normal segmental wall motion with reduce diastolic complaints. Moderate aortic insufficiency. ASSESSMENT: 1. Pneumonia. 2. Borderline troponin elevation consider non-ST elevation myocardial infarction. 3. History of 3-vessel calcific coronary artery disease. 4. Parkinsonism. 5. Moderate aortic insufficiency. 6. History of cerebrovascular accident. RECOMMENDATIONS: Continue current Aricept 10 mg once a day, aspirin 325 mg once a day, Levaquin at 750 mg intravenously daily, Lipitor 40 mg once a day, Plavix 75 mg once a day, Sinemet one tablet q. 6 hours, Tricor 145 mg once a day. No invasive cardiac workup is justified or indicated. Lauro Alonzo MD
[2017-09-05] MEDS: Dextrose 5%/0.45% NS 1,000 ML IV SCH ×3 (01:13→23:10)
[2017-09-05] MEDS: Carbidopa/Levodopa 50/200 CR PO SCH ×4 (01:15→21:26)
[2017-09-05 05:53] LABS: HEMOGLOBIN 7.5 g/dL (12.0-18.0); MEAN CELL VOLUME 85.1 fl (80.0-94.0); MEAN CORPUSCULAR HEMOGLOBIN 27.9 pg (27.0-31.0); MEAN CORPUSCULAR HGB CONC 32.8 g/dL (33.0-37.0); RBC 2.69 Mil/uL (4.40-5.90); RED CELL DISTRIBUTION WIDTH 14.2 % (11.5-14.5); WHITE BLOOD COUNT 5.5 K/uL (4.8-10.8)
[2017-09-05 06:00] LABS: BLOOD UREA NITROGEN 13 mg/dl (9-20); CALCIUM 8.7 mg/dL (8.4-10.2); GFR AFRICAN-AMERICAN > 60; GFR NON-AFRICAN AMERICAN > 60
[2017-09-05] MEDS: Insulin Lispro (humaLOG) 100 Units/ml Inj SC SCH ×5 (06:58→21:26)
--- NOTE | 2017-09-05 07:40 | CP.PCM.PN ---
Subjective - Date & Time of Evaluation Date of Evaluation: 09/05/17 Time of Evaluation: 07:39 - Subjective Subjective: pt answering very simple questions, mildly lethargic awake and alert, however unable to assess orientation vitals reviewed and stable, +de la o richard urine Hgb 7.5/ Hct 22.9, transfuse 1 unit PRBC given CAD/UT. HD stable at this time no acute distress. Objective - Vital Signs/Intake and Output Vital Signs (last 24 hours): Temp Pulse Resp BP Pulse Ox 98.4 F 59 L 18 109/56 L 100 09/05/17 05:00 09/05/17 05:00 09/05/17 05:00 09/05/17 05:00 09/05/17 05:00 Intake and Output: 09/05/17 09/05/17 06:59 18:59 Intake Total 800 Output Total 350 Balance 450 - Medications Medications: Current Medications Acetaminophen (Tylenol 650 Mg Supp) 650 mg [place] Q4 PRN PRN Reason: Temperature Last Admin: 09/03/17 18:24 Dose: 650 mg Albuterol/Ipratropium (Duoneb 3 Mg/0.5 Mg (3 Ml) Ud) 3 ml INH RQ6 PRN PRN Reason: Shortness of Breath Aspirin (Aspirin) 325 mg PO DAILY [facility] Last Admin: 09/04/17 13:39 Dose: 325 mg Atorvastatin Calcium (Lipitor) 40 mg PO DAILY [facility] Last Admin: 09/04/17 13:40 Dose: 40 mg Benztropine Mesylate (Cogentin) 0.5 mg PO BID [facility] Last Admin: 09/04/17 17:40 Dose: 0.5 mg Carbidopa/Levodopa (Sinemet Cr) 1 tab PO Q6H [facility] Last Admin: 09/05/17 01:15 Dose: 1 tab Clopidogrel Bisulfate (Plavix) 75 mg PO DAILY [facility] Last Admin: 09/04/17 13:40 Dose: 75 mg Donepezil HCl (Aricept) 10 mg PO DAILY [facility] Last Admin: 09/04/17 13:38 Dose: 10 mg Enoxaparin Sodium (Lovenox) 60 mg SC Q12 TONE PRN Reason: Protocol Last Admin: 09/04/17 21:32 Dose: 60 mg Entacapone (Comtan) 200 mg PO TID [facility] Last Admin: 09/04/17 17:41 Dose: 200 mg Fenofibrate (Tricor) 145 mg PO HS [facility] Last Admin: 09/04/17 21:32 Dose: 145 mg Levofloxacin/Dextrose (Levaquin 750mg) 750 mg in 150 mls @ 100 mls/hr IVPB DAILY [facility] Last Admin: 09/04/17 13:40 Dose: 100 mls/hr Insulin Human Lispro (Humalog) 0 units SC ACHS [facility] PRN Reason: Protocol Last Admin: 09/05/17 07:02 Dose: 1 unit Memantine (Namenda) 5 mg PO BID [facility] Last Admin: 09/04/17 17:43 Dose: 5 mg Metoprolol Succinate (Toprol Xl) 100 mg PO DAILY [facility] Last Admin: 09/04/17 13:41 Dose: 100 mg Pantoprazole Sodium (Protonix Ec Tab) 40 mg PO DAILY [facility] Last Admin: 09/04/17 13:40 Dose: 40 mg Tamsulosin HCl (Flomax) 0.4 mg PO DAILY [facility] Last Admin: 09/04/17 13:39 Dose: 0.4 mg - Labs Labs: 09/05/17 04:35 09/05/17 04:35 PT 14.3 Seconds (9.8-13.1) H 09/02/17 00:18 INR 1.3 (0.9-1.2) H 09/02/17 00:18 APTT 30.5 Seconds (25.6-37.1) 09/02/17 00:18 - Constitutional Appears: Non-toxic, No Acute Distress - Head Exam Head Exam: ATRAUMATIC, NORMOCEPHALIC - Eye Exam Eye Exam: EOMI, Normal appearance, PERRL - ENT Exam ENT Exam: Mucous Membranes Moist, Normal Oropharynx - Neck Exam Neck Exam: Full ROM, Normal Inspection - Respiratory Exam Respiratory Exam: Clear to Ausculation Bilateral, NORMAL BREATHING PATTERN - Cardiovascular Exam Cardiovascular Exam: RRR, +S1, +S2 - GI/Abdominal Exam GI & Abdominal Exam: Soft, Normal Bowel Sounds. absent: Tenderness, Mass - Extremities Exam Extremities Exam: Normal Capillary Refill. absent: Joint Swelling, Pedal Edema - Back Exam Back Exam: absent: CVA tenderness (L), CVA tenderness (R) - Neurological Exam Neurological Exam: Alert, Awake - Psychiatric Exam Additional comments: unable to assess at this time Assessment and Plan - Assessment and Plan (Free Text) Plan: 81 y/o male with PMH HTN, HLD, CAD, ?DM2, Parkinson's dementia , bed bound sent [place] for fever episodes. Tmax 102.9 in ER WBC 7 K CXR showed possible left hilar infiltrate Patient found to have elevated Trop 3.3 Patient admitted for NSTEMI and possible HCAP At present hemodynamically stable, frail , cachetic . Procalcitonin elevated , urine cx growing ESBL WBC 6 K, afebrile last 24 hours 1. Sepsis patient was tachycardic , tachypneic febrile with possible left hilar infiltrate , Procalcitonin elevated CXR showed possible left hilar infiltrate . Repeat CXr today showed atelectasis urine cx growing gram negative rods - ecoli ESBL+ sensitive to Amikacin, Ertapenem, ESBL +, Nitrofurantoin, Meropenem, Zosyn Follow up blood cx Most likely UTI source of sepsis Continue aspiration precautions Dysphagia modified diet ,thickened liquids and pureed diet CHANGED ABX TO MERREM TODAY ID consult: Dr. Solis appreciated and followed Tylenol for fever Continue hydration 2. NSTEMI/ CAD troponin elevate 3.3 but trending down to 1.7 cardiology consulted Continue ASA, Statin, Lovenox therapeutic , Plavix resume Metoprolol ( home medication) Echo showed normal EF and wall motion ,LVH 3. DM2 DM diet, accucheck ACHS with SSI for now 4. Parkinsonism / Frailty bed bound , non verbal , with muscle contracture Continue Carbidopa /comtan/ cogentin Aricept for dementia DNR/DNI 5. HTN restarted metoprolol 6.HCAP less likely repeat CXR showed no infiltrate on levaquine IV Aspiration precautions 7. Anemia most likley anemia of chronic disease Hgb 8.1 yesterday, 7.5 today transfuse 1 unit PRBC today monitor for now 8.DVT PPx on lovenox
[2017-09-05] MEDS: Enoxaparin 60 mg Syringe SC SCH ×2 (09:38→20:44)
[2017-09-05] MEDS: Pantoprazole 40 mg EC Tab PO SCH (10:07)
[2017-09-05] MEDS: Metoprolol Succinate 100 mg XL Tab PO SCH (10:07)
[2017-09-05] MEDS ORDERED: Meropenem 1 GM in Sodium Chloride 0.9% 100 ML IVPB SCH (11:15)
--- NOTE | 2017-09-05 12:13 | CP.CCUPN ---
CCU Subjective - Physician Review Subjective (Free Text): Head rocking and tremors noted, awake, not talking, otherwise no overt distress. Other Vitals and I/Os reviewed. No fever spikes overnight. Positive fluid balance of 0.6 L noted. ROS: No other pertinent negs or positives on 10+ system review. PMSFH: All other historical Nursing and physician documentation reviewed to date; no new pertinent info noted relevant to current medical problems. EXAM- HEENT: no icterus, no gaze preference, pupils equal and reactive, no icterus NECK: No JVD, supple, carotids equal upstroke bilat/no bruits CHEST: decreased BS bases, otherwise clear bilat, no wheezes audible HEART: regular distant, S1S2, no rubs. ABD: soft, no distention, no tympany, no palp tenderness, BS hypoactive EXT: No peripheral/ digital cyanosis, no calf tenderness or palpable cords, distal pulses intact and symmetrical. NEURO: no gross focal motor deficits SKIN: no rashes, warm and dry. LABS: WBC= 5.5 HGB= 7.5 PLTs= 160K Na= 138 K= 3.6 CL= 106 HCO3= 23 BUN/Cr= 13/0.7 BS= 169 MAJOR PROBLEMS: 1. Acute NSTEMI 2. E. coli (ESBL) UTI 3. Acute on chronic disease Anemia 4. Parkinsons Disease PLAN: 1. On Therapeutic Lovenox, monitor serial Hgb, ok for hydrational drop, no active bleeding evident. 2. Given AMI, could consider PRBCs in this setting. 3. ECHO results reviewed: mod AR, mild DDysfx, LVEF normal. 4. E. coli resistant to quinolones, change Levaquin to Zosyn, or ID to Rx Meropenam. CCU Objective - Vital Signs / Intake & Output Vital Signs (Last 4 hours): Vital Signs Pulse BP 09/05/17 10:07 70 108/56 L Intake and Output (Last 8hrs): Intake & Output 09/04/17 09/05/17 09/05/17 22:59 06:59 14:59 Intake Total 200 600 Output Total 350 Balance 200 250 Intake: IV 200 600 Output: Urine 350 Urethral (Anguiano) 350 - Medications Active Medications: Active Medications Generic Name Dose Route Start Last Admin Trade Name Freq PRN Reason Stop Dose Admin Acetaminophen 650 mg 09/03/17 18:05 09/03/17 18:24 Tylenol 650 Mg Supp [place] 650 mg Q4 PRN Administration Temperature Albuterol/Ipratropium 3 ml 09/03/17 02:05 Duoneb 3 Mg/0.5 Mg (3 Ml) Ud INH RQ6 PRN Shortness of Breath Aspirin 325 mg 09/03/17 09:00 09/05/17 10:07 Aspirin PO Not Given DAILY [facility]ONE Atorvastatin Calcium 40 mg 09/04/17 09:00 09/05/17 10:07 Lipitor PO Not Given DAILY TONE Benztropine Mesylate 0.5 mg 09/03/17 09:00 09/05/17 10:07 Cogentin PO Not Given BID TONE Carbidopa/Levodopa 1 tab 09/03/17 02:15 09/05/17 01:15 Sinemet Cr PO 1 tab Q6H TONE Administration Clopidogrel Bisulfate 75 mg 09/04/17 09:00 09/05/17 10:07 Plavix PO Not Given DAILY [facility] Donepezil HCl 10 mg 09/03/17 09:00 09/05/17 10:06 Aricept PO Not Given DAILY [facility] Enoxaparin Sodium 60 mg 09/03/17 21:00 09/05/17 09:38 Lovenox SC 60 mg Q12 TONE Administration Protocol Entacapone 200 mg 09/03/17 09:00 09/05/17 10:07 Comtan PO Not Given TID TONE Fenofibrate 145 mg 09/03/17 22:00 09/04/17 21:32 Tricor PO 145 mg HS TONE Administration Meropenem 1 gm/ Sodium 100 mls @ 100 mls/hr 09/05/17 11:15 Chloride IVPB Q8 TONE Protocol Insulin Human Lispro 0 units 09/03/17 07:30 09/05/17 07:02 Humalog SC 1 unit ACHS TONE Administration Protocol Memantine 5 mg 09/03/17 09:00 09/05/17 10:07 Namenda PO Not Given BID TONE Metoprolol Succinate 100 mg 09/03/17 09:00 09/05/17 10:07 Toprol Xl PO Not Given DAILY [facility] Pantoprazole Sodium 40 mg 09/03/17 09:00 09/05/17 10:07 Protonix Ec Tab PO Not Given DAILY [facility] Tamsulosin HCl 0.4 mg 09/03/17 09:00 09/05/17 10:07 Flomax PO Not Given DAILY [facility] - Patient Studies Lab Studies: Microbiology Studies 09/03/17 07:11 Urine Culture - Final Urine,Catheterized Escherichia Coli 09/02/17 02:02 Blood Culture - Preliminary Blood NO GROWTH AFTER 48 HOURS 09/02/17 00:18 Blood Culture - Preliminary Blood NO GROWTH AFTER 48 HOURS 09/03/17 12:30 MRSA Culture (Admit) - Final Naris MRSA NOT DETECTED Lab Studies 09/05/17 09/05/17 09/05/17 Range/Units 11:33 10:35 08:13 WBC (4.8-10.8) K/uL RBC (4.40-5.90) Mil/uL Hgb (12.0-18.0) g/dL Hct (35.0-51.0) % MCV (80.0-94.0) fl MCH (27.0-31.0) pg MCHC (33.0-37.0) g/dL RDW (11.5-14.5) % Plt Count (130-400) K/uL Sodium (132-148) mmol/l Potassium (3.6-5.0) MMOL/L Chloride (98-107) mmol/L Carbon Dioxide (22-30) mmol/L Anion Gap (10-20) BUN (9-20) mg/dl Creatinine (0.8-1.5) mg/dl Est GFR ( Amer) Est GFR (Non-Af Amer) POC Glucose (mg/dL) 120 H (65-110) mg/dL Random Glucose (75-110) mg/dL Calcium (8.4-10.2) mg/dL NT-Pro-B Natriuret Pep 6840 H (0-900) pg/ml Procalcitonin (0.19-0.49) NG/ML Blood Type A POSITIVE Antibody Screen Negative Crossmatch See Detail BBK History Checked No verified bt 09/05/17 09/05/17 09/05/17 Range/Units 05:56 04:35 04:35 WBC 5.5 (4.8-10.8) K/uL RBC 2.69 L (4.40-5.90) Mil/uL Hgb 7.5 L (12.0-18.0) g/dL Hct 22.9 L (35.0-51.0) % MCV 85.1 (80.0-94.0) fl MCH 27.9 (27.0-31.0) pg MCHC 32.8 L (33.0-37.0) g/dL RDW 14.2 (11.5-14.5) % Plt Count 160 (130-400) K/uL Sodium 138 (132-148) mmol/l Potassium 3.6 (3.6-5.0) MMOL/L Chloride 106 (98-107) mmol/L Carbon Dioxide 23 (22-30) mmol/L Anion Gap 13 (10-20) BUN 13 (9-20) mg/dl Creatinine 0.7 L (0.8-1.5) mg/dl Est GFR ( Amer) > 60 Est GFR (Non-Af Amer) > 60 POC Glucose (mg/dL) 158 H (65-110) mg/dL Random Glucose 169 H (75-110) mg/dL Calcium 8.7 (8.4-10.2) mg/dL NT-Pro-B Natriuret Pep (0-900) pg/ml Procalcitonin (0.19-0.49) NG/ML Blood Type Antibody Screen Crossmatch BBK History Checked 09/04/17 09/04/17 09/04/17 Range/Units 21:42 16:49 04:50 WBC (4.8-10.8) K/uL RBC (4.40-5.90) Mil/uL Hgb (12.0-18.0) g/dL Hct (35.0-51.0) % MCV (80.0-94.0) fl MCH (27.0-31.0) pg MCHC (33.0-37.0) g/dL RDW (11.5-14.5) % Plt Count (130-400) K/uL Sodium (132-148) mmol/l Potassium (3.6-5.0) MMOL/L Chloride (98-107) mmol/L Carbon Dioxide (22-30) mmol/L Anion Gap (10-20) BUN (9-20) mg/dl Creatinine (0.8-1.5) mg/dl Est GFR ( Amer) Est GFR (Non-Af Amer) POC Glucose (mg/dL) 161 H 122 H (65-110) mg/dL Random Glucose (75-110) mg/dL Calcium (8.4-10.2) mg/dL NT-Pro-B Natriuret Pep (0-900) pg/ml Procalcitonin 6.25 H (0.19-0.49) NG/ML Blood Type Antibody Screen Crossmatch BBK History Checked Laboratory Results - last 24 hr 09/04/17 09/04/17 09/04/17 04:50 16:49 21:42 WBC RBC Hgb Hct MCV MCH MCHC RDW Plt Count Sodium Potassium Chloride Carbon Dioxide Anion Gap BUN Creatinine Est GFR ( Amer) Est GFR (Non-Af Amer) POC Glucose (mg/dL) 122 H 161 H Random Glucose Calcium NT-Pro-B Natriuret Pep Procalcitonin 6.25 H Blood Type Antibody Screen Crossmatch BBK History Checked 09/05/17 09/05/17 09/05/17 04:35 04:35 05:56 WBC 5.5 RBC 2.69 L Hgb 7.5 L Hct 22.9 L MCV 85.1 MCH 27.9 MCHC 32.8 L RDW 14.2 Plt Count 160 Sodium 138 Potassium 3.6 Chloride 106 Carbon Dioxide 23 Anion Gap 13 BUN 13 Creatinine 0.7 L Est GFR ( Amer) > 60 Est GFR (Non-Af Amer) > 60 POC Glucose (mg/dL) 158 H Random Glucose 169 H Calcium 8.7 NT-Pro-B Natriuret Pep Procalcitonin Blood Type Antibody Screen Crossmatch BBK History Checked 09/05/17 09/05/17 09/05/17 08:13 10:35 11:33 WBC RBC Hgb Hct MCV MCH MCHC RDW Plt Count Sodium Potassium Chloride Carbon Dioxide Anion Gap BUN Creatinine Est GFR ( Amer) Est GFR (Non-Af Amer) POC Glucose (mg/dL) 120 H Random Glucose Calcium NT-Pro-B Natriuret Pep 6840 H Procalcitonin Blood Type A POSITIVE Antibody Screen Negative Crossmatch See Detail BBK History Checked No verified bt Fingerstick Blood Sugar Results: 158
--- NOTE | 2017-09-05 17:55 | CP.PCM.CON ---
History of Present Illness - History of Present Illness History of Present Illness: 81 year old male brought in by EMS presents to ED [facility] for fever x24 hours and has a past medical history of advanced dementia, HTN, CAD, SVT, and CHF. On arrival patient's temperature is 102.9 degrees. Referred for ID eval for ESBL + E Coli in urine / pneumonia Cannot provide details of illness - Medical History PMH: CAD (triple vessel disease), Diabetes, HTN, Hyperlipidemia, Parkinson's Disease Review of Systems - Review of Systems Systems not reviewed;Unavailable: Altered Mental Status - Constitutional Constitutional: As Per HPI - EENT Eyes: absent: As Per HPI, Blind Spots, Blurred Vision, Change in Vision, Decreased Night Vision, Diplopia, Discharge, Dry Eye, Exophthalmos, Floaters, Irritation, Itchy Eyes, Loss of Peripheral Vision, Pain, Photophobia, Requires Corrective Lenses, Sees Flashes, Spots in Vision, Tunnel Vision, Other Visual Disturbances, Loss of Vision, Other Ears: absent: As Per HPI, Decreased Hearing, Ear Discharge, Ear Pain, Tinnitus, Abnormal Hearing, Disequilibrium, Dizziness, Other Nose/Mouth/Throat: absent: As Per HPI, Epistaxis, Nasal Congestion, Nasal Discharge, Nasal Obstruction, Nasal Trauma, Nose Pain, Post Nasal Drip, Sinus Pain, Sinus Pressure, Bleeding Gums, Change in Voice, Dental Pain, Dry Mouth, Dysphagia, Halitosis, Hoarsness, Lip Swelling, Mouth Lesions, Mouth Pain, Odynophagia, Sore Throat, Throat Swelling, Tongue Swelling, Facial Pain, Neck Pain, Neck Mass, Other - Cardiovascular Cardiovascular: absent: As Per HPI, Acrocyanosis, Chest Pain, Chest Pain at Rest , Chest Pain with Activity, Claudication, Diaphoresis, Dyspnea, Dyspnea on Exertion, Edema, Irregular Heart Rhythm, Pain Radiating to Arm/Neck/Jaw, Leg Edema, Leg Ulcers, Lightheadedness, Orthopnea, Palpitations, Paroxysmal Nocturnal Dyspnea, Pedal Edema, Radiating Pain, Rapid Heart Rate, Slow Heart Rate, Syncope, Other - Respiratory Respiratory: absent: As Per HPI, Cough, Dyspnea, Hemoptysis, Dyspnea on Exertion , Wheezing, Snoring, Stridor, Pain on Inspiration, Chest Congestion, Excessive Mucous Production, Change in Mucous Color, Pain with Coughing, Other - Gastrointestinal Gastrointestinal: absent: As Per HPI, Abdominal Pain, Belching, Bloating, Change in Bowel Habits, Change in Stool Character, Coffee Ground Emesis, Constipation, Cramping, Diarrhea, Dyspepsia, Dysphagia, Early Satiety, Excessive Flatus, Fecal Incontinence, Heartburn, Hematemesis, Hematochezia, Loose Stools, Melena, Nausea, Odynophagia, Temesmus, Vomiting, Other - Genitourinary Genitourinary: As Per HPI - Musculoskeletal Musculoskeletal: absent: As Per HPI, Abnormal Gait, Arthralgias, Atrophy, Back Pain, Deformity, Joint Swelling, Limited Range of Motion, Loss of Height, Muscle Cramps, Muscle Weakness, Myalgias, Neck Pain, Numbness, Radiating Pain into Limb, Stiffness, Tingling, Other - Integumentary Integumentary: absent: As Per HPI, Acne, Alopecia, Bleeding Lesions, Change in Hair, Change in Nails, Change in Pigmentation, Changing Lesions, Dry Skin, Erythema, Furuncle, Hirsutism, Lesions, New Lesions, Non-Healing Lesions, Photosensitivity, Pruritus, Rash, Skin Pain, Skin Ulcer, Sores, Striae, Swelling , Unusual Bruising, Wounds, Jaundice, Other - Neurological Neurological: absent: As Per HPI, Abnormal Gait, Abnormal Hearing, Abnormal Movements, Abnormal Speech, Behavioral Changes, Burning Sensations, Confusion, Convulsions, Disequilibrium, Dizziness, Numbness, Focal Weakness, Frequent Falls , Headaches, Lack of Coordination, Loss of Vision, Memory Loss, Paresthesias, Radicular Pain, Restless Legs, Sensory Deficit, Syncope, Tingling, Tremor, Vertigo, Weakness, Other Visual Disturbances, Other - Psychiatric Psychiatric: absent: As Per HPI, Abnormal Sleep Pattern, Anhedonia, Anxiety, Auditory Hallucinations, Behavioral Changes, Change in Appetite, Change in Libido, Confusion, Depression, Difficulty Concentrating, Hallucinations, Homicidal Ideation, Hopelessness, Irritability, Memory Loss, Mood Swings, Panic Attacks, Paranoia, Suicidal Ideation, Visual Hallucinations, Tactile Hallucinations, Other - Endocrine Endocrine: absent: As Per HPI, Change in Body Appearance, Change in Libido, Cold Intolorance, Deepening of Voice, Excessive Sweating, Fatigue, Flushing, Heat Intolorance, Increase in Ring/Shoe/Hat Size, Palpitations, Polydipsia, Polyphagia, Polyuria, Other - Hematologic/Lymphatic Hematologic: absent: As Per HPI, Easy Bleeding, Easy Bruising, Lymphadenopathy, Other Past Patient History - Past Medical History & Family History Past Medical History?: Yes - Past Social History Smoking Status: Former Smoker - CARDIAC Hx Hypertension: Yes - PULMONARY Hx Respiratory Disorders: No - NEUROLOGICAL Hx Parkinson's Disease: Yes - RENAL Other/Comment: PROSTATE CA - ENDOCRINE/METABOLIC Hx Endocrine Disorders: Yes - HEMATOLOGICAL/ONCOLOGICAL Hx Blood Disorders: No - MUSCULOSKELETAL/RHEUMATOLOGICAL Hx Falls: No - GASTROINTESTINAL Hx Gastrointestinal Disorders: No - GENITOURINARY/GYNECOLOGICAL Hx Prostate Cancer: Yes - PSYCHIATRIC Hx Substance Use: No - SURGICAL HISTORY Hx Coronary Artery Bypass Graft: Yes - ANESTHESIA Hx Anesthesia: Yes Hx Anesthesia Reactions: No Meds Allergies/Adverse Reactions: Allergies Allergy/AdvReac Type Severity Reaction Status Date / Time No Known Allergies Allergy Verified 09/02/17 22:55 - Medications Medications: Current Medications Acetaminophen (Tylenol 650 Mg Supp) [address] Q4 PRN PRN Reason: Temperature Last Admin: 09/03/17 18:24 Dose: 650 mg Albuterol/Ipratropium (Duoneb 3 Mg/0.5 Mg (3 Ml) Ud) 3 ml INH RQ6 PRN PRN Reason: Shortness of Breath Aspirin (Aspirin) 325 mg PO DAILY [facility] Last Admin: 09/05/17 10:07 Dose: Not Given Atorvastatin Calcium (Lipitor) 40 mg PO DAILY [facility] Last Admin: 09/05/17 10:07 Dose: Not Given Benztropine Mesylate (Cogentin) 0.5 mg PO BID [facility] Last Admin: 09/05/17 16:58 Dose: Not Given Carbidopa/Levodopa (Sinemet Cr) 1 tab PO Q6H [facility] Last Admin: 09/05/17 14:15 Dose: Not Given Clopidogrel Bisulfate (Plavix) 75 mg PO DAILY [facility] Last Admin: 09/05/17 10:07 Dose: Not Given Donepezil HCl (Aricept) 10 mg PO DAILY [facility] Last Admin: 09/05/17 10:06 Dose: Not Given Enoxaparin Sodium (Lovenox) 60 mg SC Q12 TONE PRN Reason: Protocol Last Admin: 09/05/17 09:38 Dose: 60 mg Entacapone (Comtan) 200 mg PO TID [facility] Last Admin: 09/05/17 16:58 Dose: Not Given Fenofibrate (Tricor) 145 mg PO HS [facility] Last Admin: 09/04/17 21:32 Dose: 145 mg Dextrose/Sodium Chloride (Dextrose 5%/0.45% Ns 1000 Ml) 1,000 mls @ 100 mls/hr IV .Q10H [facility] Stop: 09/06/17 14:09 Meropenem 1 gm/ Sodium (Chloride) 100 mls @ 100 mls/hr IVPB Q8@0400,1200,2000 [facility] PRN Reason: Protocol Insulin Human Lispro (Humalog) 0 units SC ACHS [facility] PRN Reason: Protocol Last Admin: 09/05/17 16:58 Dose: Not Given Memantine (Namenda) 5 mg PO BID [facility] Last Admin: 09/05/17 16:58 Dose: Not Given Metoprolol Succinate (Toprol Xl) 100 mg PO DAILY [facility] Last Admin: 09/05/17 10:07 Dose: Not Given Pantoprazole Sodium (Protonix Ec Tab) 40 mg PO DAILY [facility] Last Admin: 09/05/17 10:07 Dose: Not Given Tamsulosin HCl (Flomax) 0.4 mg PO DAILY [facility] Last Admin: 09/05/17 10:07 Dose: Not Given Physical Exam - Constitutional Appears: Confused, Cachectic, Chronically Ill - Head Exam Head Exam: ATRAUMATIC, NORMAL INSPECTION, NORMOCEPHALIC - Eye Exam Eye Exam: EOMI, Normal appearance, PERRL. absent: Scleral icterus - ENT Exam ENT Exam: Mucous Membranes Dry, Normal External Ear Exam, Normal Oropharynx - Neck Exam Neck exam: Negative for: Lymphadenopathy, Thyromegaly - Respiratory Exam Respiratory Exam: Decreased Breath Sounds, Prolonged Expiratory Phase, Rhonchi - Cardiovascular Exam Cardiovascular Exam: Tachycardia, REGULAR RHYTHM, +S1, +S2 - GI/Abdominal Exam GI & Abdominal Exam: Diminished Bowel Sounds, Distended, Soft. absent: Guarding , Rebound, Rigid, Tenderness - Rectal Exam Rectal Exam: Deferred - Exam Exam: NORMAL INSPECTION - Extremities Exam Extremities exam: Positive for: pedal pulses present. Negative for: calf tenderness, pedal edema, tenderness Additional comments: contracted - Back Exam Back exam: absent: CVA tenderness (L), CVA tenderness (R) - Neurological Exam Neurological exam: Alert, CN II-XII Intact, Oriented x3, Reflexes Normal - Psychiatric Exam Psychiatric exam: Depressed - Skin Skin Exam: Dry Results - Vital Signs Recent Vital Signs: Last Vital Signs Temp 99.1 F 09/05/17 16:00 Pulse 74 09/05/17 16:00 Resp 28 H 09/05/17 16:00 BP 140/60 09/05/17 16:00 Pulse Ox 100 09/05/17 16:00 - Labs Result Diagrams: 09/05/17 04:35 09/05/17 04:35 Labs: Laboratory Results - last 24 hr 09/04/17 09/05/17 09/05/17 21:42 04:35 04:35 WBC 5.5 RBC 2.69 L Hgb 7.5 L Hct 22.9 L MCV 85.1 MCH 27.9 MCHC 32.8 L RDW 14.2 Plt Count 160 Sodium 138 Potassium 3.6 Chloride 106 Carbon Dioxide 23 Anion Gap 13 BUN 13 Creatinine 0.7 L Est GFR ( Amer) > 60 Est GFR (Non-Af Amer) > 60 POC Glucose (mg/dL) 161 H Random Glucose 169 H Calcium 8.7 NT-Pro-B Natriuret Pep Blood Type Blood Type Confirm Antibody Screen Crossmatch BBK History Checked 09/05/17 09/05/17 09/05/17 05:56 08:13 10:35 WBC RBC Hgb Hct MCV MCH MCHC RDW Plt Count Sodium Potassium Chloride Carbon Dioxide Anion Gap BUN Creatinine Est GFR ( Amer) Est GFR (Non-Af Amer) POC Glucose (mg/dL) 158 H Random Glucose Calcium NT-Pro-B Natriuret Pep 6840 H Blood Type A POSITIVE Blood Type Confirm Antibody Screen Negative Crossmatch See Detail BBK History Checked No verified bt 09/05/17 09/05/17 09/05/17 10:57 11:33 16:56 WBC RBC Hgb Hct MCV MCH MCHC RDW Plt Count Sodium Potassium Chloride Carbon Dioxide Anion Gap BUN Creatinine Est GFR ( Amer) Est GFR (Non-Af Amer) POC Glucose (mg/dL) 120 H 122 H Random Glucose Calcium NT-Pro-B Natriuret Pep Blood Type Blood Type Confirm A POSITIVE Antibody Screen Crossmatch BBK History Checked Assessment & Plan (1) UTI due to extended-spectrum beta lactamase (ESBL) producing Escherichia coli Status: Acute (2) HCAP (healthcare-associated pneumonia) Status: Acute (3) NSTEMI (non-ST elevated myocardial infarction) Status: Acute (4) Pneumonia Status: Acute (5) Abnormal EKG Status: Acute (6) CAD (coronary artery disease) Status: Acute (7) CHF exacerbation Status: Acute (8) Diabetes Status: Acute - Assessment and Plan (Free Text) Assessment: IV rx discussed with Dr Rodgers prognosis guarded from outset
--- NOTE | 2017-09-05 19:58 | PN ---
DATE: SUBJECTIVE: The patient is nonverbal, but he does not appear to be in any respiratory distress. His oral intake is very poor. PHYSICAL EXAMINATION: VITAL SIGNS: Blood pressure 136/72, heart rate 87, temperature 98.1, and respirations 26. HEENT: Pale conjunctivae. CHEST: Diminished breath sounds at the bases. HEART: S1 and S2 regular. ABDOMEN: Soft. EXTREMITIES: Contracture deformity. LABORATORY DATA: Today's SMA-7 is within normal limits except for glucose 169 and creatinine 0.7. Today's hemoglobin and hematocrit 7.5 and 22.9 and white count and platelet counts are within normal limits. ASSESSMENT: 1. Worsening anemia, the patient is currently receiving packed red blood cell transfusion. 2. Borderline troponin elevation, consider non-ST elevation myocardial infarction. 3. History of calcific 3-vessel coronary artery disease. 4. Moderate aortic insufficiency. 5. Parkinsonism. 6. History of cerebrovascular accident. RECOMMENDATIONS: Continue IV meropenem at 1 g every 8 hours. Continue TriCor at 145 mg once a day. Consider Lasix 20 mg IV push after completion of packed RBC transfusion. Obtain stool for occult blood. Lauro Alonzo MD
[2017-09-05] MEDS: Meropenem 1 GM in Sodium Chloride 0.9% 100 ML IVPB SCH (20:51)
[2017-09-06] MEDS: Carbidopa/Levodopa 50/200 CR PO SCH ×4 (03:43→20:41)
[2017-09-06] MEDS: Dextrose 5%/0.45% NS 1,000 ML IV SCH (04:56)
[2017-09-06] MEDS: Meropenem 1 GM in Sodium Chloride 0.9% 100 ML IVPB SCH ×3 (04:57→20:15)
[2017-09-06 06:19] LABS: HEMOGLOBIN 9.4 g/dL (12.0-18.0); MEAN CORPUSCULAR HEMOGLOBIN 28.3 pg (27.0-31.0); MEAN CORPUSCULAR HGB CONC 33.7 g/dL (33.0-37.0); RBC 3.34 Mil/uL (4.40-5.90)
[2017-09-06 06:30] LABS: BLOOD UREA NITROGEN 8 mg/dl (9-20); CALCIUM 8.6 mg/dL (8.4-10.2); GFR AFRICAN-AMERICAN > 60; GFR NON-AFRICAN AMERICAN > 60
[2017-09-06] MEDS: Insulin Lispro (humaLOG) 100 Units/ml Inj SC SCH ×4 (06:59→21:46)
--- NOTE | 2017-09-06 08:24 | CP.PCM.PN ---
Subjective - Date & Time of Evaluation Date of Evaluation: 09/06/17 Time of Evaluation: 08:24 - Subjective Subjective: pt appears stable, however has not been receiving parkinsons meds failed swallow eval, NPO with precautions, GI consulted for PEG pt diaphoretic this morning EKG and troponin ordered HD stable nad Objective - Vital Signs/Intake and Output Vital Signs (last 24 hours): Temp Pulse Resp BP Pulse Ox 98.8 F 96 H 18 134/65 96 09/06/17 08:09 09/06/17 08:09 09/06/17 08:09 09/06/17 08:09 09/06/17 08:09 Vitals Reviewed GEN: awake and alert HEENT: NCAT, PERRL, EOMI HEART: RRR, +S1S2, NO MRG LUNG: CTAB, NO WRR ABD: soft, NT, ND, No HSM, No masses EXT: normal pedal pulses, normal capillary refill NEURO: awake, alert SKIN: warm, dry PSYCH: difficult to assess at this time Intake and Output: 09/06/17 09/06/17 06:59 18:59 Intake Total 500 Balance 500 - Medications Medications: Current Medications Acetaminophen (Tylenol 650 Mg Supp) 650 mg MA Q4 PRN PRN Reason: Temperature Last Admin: 09/03/17 18:24 Dose: 650 mg Albuterol/Ipratropium (Duoneb 3 Mg/0.5 Mg (3 Ml) Ud) 3 ml INH RQ6 PRN PRN Reason: Shortness of Breath Aspirin (Aspirin) 325 mg PO DAILY [facility] Last Admin: 09/05/17 10:07 Dose: Not Given Atorvastatin Calcium (Lipitor) 40 mg PO DAILY [facility] Last Admin: 09/05/17 10:07 Dose: Not Given Benztropine Mesylate (Cogentin) 0.5 mg PO BID [facility] Last Admin: 09/05/17 16:58 Dose: Not Given Carbidopa/Levodopa (Sinemet Cr) 1 tab PO Q6H [facility] Last Admin: 09/06/17 03:43 Dose: Not Given Clopidogrel Bisulfate (Plavix) 75 mg PO DAILY [facility] Last Admin: 09/05/17 10:07 Dose: Not Given Donepezil HCl (Aricept) 10 mg PO DAILY [facility] Last Admin: 09/05/17 10:06 Dose: Not Given Enoxaparin Sodium (Lovenox) 60 mg SC Q12 [facility] PRN Reason: Protocol Last Admin: 09/05/17 20:44 Dose: 60 mg Entacapone (Comtan) 200 mg PO TID [facility] Last Admin: 09/05/17 16:58 Dose: Not Given Fenofibrate (Tricor) 145 mg PO HS [facility] Last Admin: 09/05/17 21:26 Dose: Not Given Dextrose/Sodium Chloride (Dextrose 5%/0.45% Ns 1000 Ml) 1,000 mls @ 100 mls/hr IV .Q10H [facility] Stop: 09/06/17 14:09 Last Admin: 09/06/17 04:56 Dose: 100 mls/hr Meropenem 1 gm/ Sodium (Chloride) 100 mls @ 100 mls/hr IVPB Q8@0400,1200,2000 [facility] PRN Reason: Protocol Last Admin: 09/06/17 04:57 Dose: 100 mls/hr Insulin Human Lispro (Humalog) 0 units SC ACHS [facility] PRN Reason: Protocol Last Admin: 09/06/17 06:59 Dose: Not Given Memantine (Namenda) 5 mg PO BID [facility] Last Admin: 09/05/17 16:58 Dose: Not Given Metoprolol Succinate (Toprol Xl) 100 mg PO DAILY [facility] Last Admin: 09/05/17 10:07 Dose: Not Given Pantoprazole Sodium (Protonix Ec Tab) 40 mg PO DAILY [facility] Last Admin: 09/05/17 10:07 Dose: Not Given Tamsulosin HCl (Flomax) 0.4 mg PO DAILY [facility] Last Admin: 09/05/17 10:07 Dose: Not Given - Labs Labs: 09/06/17 06:00 09/06/17 06:00 PT 14.3 Seconds (9.8-13.1) H 09/02/17 00:18 INR 1.3 (0.9-1.2) H 09/02/17 00:18 APTT 30.5 Seconds (25.6-37.1) 09/02/17 00:18 Assessment and Plan - Assessment and Plan (Free Text) Plan: 81 y/o male with PMH HTN, HLD, CAD, ?DM2, Parkinson's dementia , bed bound sent from ID for fever episodes. Tmax 102.9 in ER WBC 7 K CXR showed possible left hilar infiltrate Patient found to have elevated Trop 3.3 Patient admitted for NSTEMI, SEPSIS 2/2 ESBL ECOLI UTI, possible HCAP, DYSPHAGIA REQUIRING PEG. At present hemodynamically stable, frail, cachetic . Procalcitonin elevated , urine cx growing ESBL WBC 6 K, afebrile last 24 hours GI consult today for PEG tube, as pt deemed NPO by speech and swallow eval. Discussed with family yesterday, would like PEG placement prior to discharge back to snf. for now will place NGT for meds while awaiting appropriate scheduling for PEG placement 1. Sepsis patient was tachycardic , tachypneic febrile with possible left hilar infiltrate , Procalcitonin elevated CXR showed possible left hilar infiltrate . Repeat CXR today showed atelectasis urine cx growing gram negative rods - ecoli ESBL+ sensitive to Amikacin, Ertapenem, ESBL +, Nitrofurantoin, Meropenem, Zosyn Follow up blood cx Most likely UTI source of sepsis Continue aspiration precautions Dysphagia modified diet ,thickened liquids and pureed diet CHANGED ABX TO MERREM DAY 2 ID consult: Dr. Solis appreciated and followed Tylenol for fever Continue hydration 2. NSTEMI/ CAD troponin elevate 3.3 but trending down to 1.7, 0.3 today when rechecked, likely still trending down minor EKG changes, increased flattening, sinusoidal t wave changes cardiology consulted Continue ASA, Statin, Lovenox therapeutic, Plavix resume Metoprolol (home medication) Echo showed normal EF and wall motion ,LVH 3. DM2 DM diet, accucheck ACHS with SSI for now 4. Parkinsonism / Frailty bed bound , non verbal , with muscle contracture Continue Carbidopa /comtan/ cogentin Aricept for dementia DNR/DNI 5. HTN restarted metoprolol 6.HCAP less likely repeat CXR showed no infiltrate on levaquin IV Aspiration precautions 7. Anemia most likley anemia of chronic disease transfuse 1 unit PRBC yesterday monitor for now 8.DVT PPx on lovenox
[2017-09-06] MEDS: Pantoprazole 40 mg EC Tab PO SCH (08:25)
[2017-09-06] MEDS: Metoprolol Succinate 100 mg XL Tab PO SCH (08:25)
[2017-09-06] MEDS: Enoxaparin 60 mg Syringe SC SCH ×2 (08:28→20:41)
[2017-09-06] MEDS ORDERED: Potassium Chloride 20 mEq/15 ml LIQ UD PO ONE (08:45)
[2017-09-06] MEDS ORDERED: Magnesium Sulfate 2 gm/50 ml 2 GM/50 ML BAG IVPB ONE (09:00)
[2017-09-06] MEDS ORDERED: Chlorhexidine Gluconate 1 APPL/PKT TP ONE (12:34)
--- NOTE | 2017-09-06 14:24 | RAD ---
HISTORY: NGT placement COMPARISON: 09/04/2017 FINDINGS: LUNGS: Small ill-defined opacity adjacent to superior left hilum not evident on previous examination. Possible new focal pneumonia. Followup advised. Questionable opacity at left base superimposed upon hilar vasculature. Followup to clearing advised. Small calcified granuloma mid left lung, adjacent to left hilum. Small calcified granuloma in right apex. Calcified granuloma lateral right lung base. PLEURA: No significant pleural effusion identified, no pneumothorax apparent. CARDIOVASCULAR: Normal heart size. New nasogastric tube extends to left upper quadrant of abdomen. OSSEOUS STRUCTURES: No significant abnormalities. VISUALIZED UPPER ABDOMEN: Normal. OTHER FINDINGS: None. IMPRESSION: New NG tube appropriately positioned extending to left upper quadrant of abdomen. Ill-defined opacity at left base adjacent to left lower pulmonary vasculature. New small ill-defined opacity adjacent to left superior hilum. Possible focal infiltrates. Followup advised. Old granulomatous disease.
--- NOTE | 2017-09-06 14:45 | CP.PCM.CON ---
History of Present Illness - History of Present Illness History of Present Illness: PGY5 GI Fellow Consult Note Patient is an 81yo male with PMHx significant for CAD, HTN, dyslipidemia, Parkinson dementia, prior CVA who was sent from [place] for evaluation of fever. Patient unable to provide any history, thus history obtained from EMR and discussion with family. On arrival to the ED, patient had Tmax 102.9F and was started on broad spectrum antibiotics with initial concern for HCAP, subsequent cultures have revealed an ESBL E. coli UTI. Moreover, patient was noted to have an NSTEMI with troponin rising to 3.3 on admission and subsequently downtrending. Patient has known underlying triple vessel disease per cardiology. The patient was also noted to have anemia yesterday with HGB 7.5, transfused 1 units PRBC with HGB improving to 9.4 today. No overt blood loss noted. Given the patient's frail state, history of dementia and altered mentation, a swallow study was performed which showed dysphagia and current recommendation by [facility] is for strict NPO. Our service is consulted for PEG evaluation. PMHx: See HPI PSHx: No known prior surgeries FHx: Unable to assess at this time Social: No tobacco, EtOH or illicit drug use Endo: No prior endoscopic evaluations per our record 12 system ROS cannot be performed given clinical condition. Past Patient History - Past Medical History & Family History Past Medical History?: Yes - Past Social History Smoking Status: Former Smoker - CARDIAC Hx Hypertension: Yes - PULMONARY Hx Respiratory Disorders: No - NEUROLOGICAL Hx Parkinson's Disease: Yes - RENAL Other/Comment: PROSTATE CA - ENDOCRINE/METABOLIC Hx Endocrine Disorders: Yes - HEMATOLOGICAL/ONCOLOGICAL Hx Blood Disorders: No - MUSCULOSKELETAL/RHEUMATOLOGICAL Hx Falls: No - GASTROINTESTINAL Hx Gastrointestinal Disorders: No - GENITOURINARY/GYNECOLOGICAL Hx Prostate Cancer: Yes - PSYCHIATRIC Hx Substance Use: No - SURGICAL HISTORY Hx Coronary Artery Bypass Graft: Yes - ANESTHESIA Hx Anesthesia: Yes Hx Anesthesia Reactions: No Meds Allergies/Adverse Reactions: Allergies Allergy/AdvReac Type Severity Reaction Status Date / Time No Known Allergies Allergy Verified 09/02/17 22:55 - Medications Medications: Current Medications Acetaminophen (Tylenol 650 Mg Supp) 650 mg [place] Q4 PRN PRN Reason: Temperature Last Admin: 09/03/17 18:24 Dose: 650 mg Albuterol/Ipratropium (Duoneb 3 Mg/0.5 Mg (3 Ml) Ud) 3 ml INH RQ6 PRN PRN Reason: Shortness of Breath Aspirin (Aspirin) 325 mg PO DAILY [facility] Last Admin: 09/06/17 08:24 Dose: Not Given Atorvastatin Calcium (Lipitor) 40 mg PO DAILY [facility] Last Admin: 09/06/17 08:24 Dose: Not Given Benztropine Mesylate (Cogentin) 0.5 mg PO BID [facility] Last Admin: 09/06/17 08:24 Dose: Not Given Carbidopa/Levodopa (Sinemet Cr) 1 tab PO Q6H [facility] Last Admin: 09/06/17 08:25 Dose: Not Given Clopidogrel Bisulfate (Plavix) 75 mg PO DAILY [facility] Last Admin: 09/06/17 08:25 Dose: Not Given Donepezil HCl (Aricept) 10 mg PO DAILY [facility] Last Admin: 09/06/17 08:24 Dose: Not Given Enoxaparin Sodium (Lovenox) 60 mg SC Q12 [facility] PRN Reason: Protocol Last Admin: 09/06/17 08:28 Dose: 60 mg Entacapone (Comtan) 200 mg PO TID [facility] Last Admin: 09/06/17 14:09 Dose: Not Given Fenofibrate (Tricor) 145 mg PO HS [facility] Last Admin: 09/05/17 21:26 Dose: Not Given Meropenem 1 gm/ Sodium (Chloride) 100 mls @ 100 mls/hr IVPB Q8@0400,1200,2000 [facility] PRN Reason: Protocol Last Admin: 09/06/17 11:37 Dose: 100 mls/hr Insulin Human Lispro (Humalog) 0 units SC ACHS [facility] PRN Reason: Protocol Last Admin: 09/06/17 11:37 Dose: Not Given Memantine (Namenda) 5 mg PO BID [facility] Last Admin: 09/06/17 08:25 Dose: Not Given Metoprolol Succinate (Toprol Xl) 100 mg PO DAILY [facility] Last Admin: 09/06/17 08:25 Dose: Not Given Pantoprazole Sodium (Protonix Ec Tab) 40 mg PO DAILY [facility] Last Admin: 09/06/17 08:25 Dose: Not Given Tamsulosin HCl (Flomax) 0.4 mg PO DAILY [facility] Last Admin: 09/06/17 08:24 Dose: Not Given Physical Exam - Constitutional Appears: Confused, Chronically Ill Additional comments: diaphoretic - Eye Exam Eye Exam: PERRL - ENT Exam ENT Exam: Mucous Membranes Dry Additional comments: NGT in place - Respiratory Exam Respiratory Exam: Rales, Rhonchi. absent: Clear to Auscultation Bilateral, Wheezes - Cardiovascular Exam Cardiovascular Exam: RRR, +S1, +S2 - GI/Abdominal Exam GI & Abdominal Exam: Normal Bowel Sounds, Soft. absent: Distended, Firm, Guarding, Mass, Organomegaly, Rigid, Tenderness - Extremities Exam Extremities exam: Positive for: normal inspection. Negative for: pedal edema - Neurological Exam Neurological exam: Altered - Psychiatric Exam Psychiatric exam: Flat Affect - Skin Skin Exam: Diaphoretic, Warm Results - Vital Signs Recent Vital Signs: Last Vital Signs Temp 98.6 F 09/06/17 10:33 Pulse 87 09/06/17 10:33 Resp 18 09/06/17 08:09 BP 150/77 09/06/17 10:33 Pulse Ox 96 09/06/17 10:33 - Labs Result Diagrams: 09/06/17 06:00 09/06/17 06:00 Labs: Laboratory Results - last 24 hr 09/05/17 09/05/17 09/05/17 10:35 16:56 21:02 WBC RBC Hgb Hct MCV MCH MCHC RDW Plt Count Sodium Potassium Chloride Carbon Dioxide Anion Gap BUN Creatinine Est GFR ( Amer) Est GFR (Non-Af Amer) POC Glucose (mg/dL) 122 H 129 H Random Glucose Calcium Troponin I Blood Type A POSITIVE Antibody Screen Negative Crossmatch See Detail BBK History Checked No verified bt 09/06/17 09/06/17 09/06/17 01:04 05:40 06:00 WBC 5.0 RBC 3.34 L Hgb 9.4 L Hct 28.0 L MCV 84.0 MCH 28.3 MCHC 33.7 RDW 14.0 Plt Count 198 Sodium Potassium Chloride Carbon Dioxide Anion Gap BUN Creatinine Est GFR ( Amer) Est GFR (Non-Af Amer) POC Glucose (mg/dL) 126 H 153 H Random Glucose Calcium Troponin I Blood Type Antibody Screen Crossmatch BBK History Checked 09/06/17 09/06/17 09/06/17 06:00 08:34 10:23 WBC RBC Hgb Hct MCV MCH MCHC RDW Plt Count Sodium 138 Potassium 3.5 L Chloride 105 Carbon Dioxide 22 Anion Gap 15 BUN 8 L Creatinine 0.7 L Est GFR ( Amer) > 60 Est GFR (Non-Af Amer) > 60 POC Glucose (mg/dL) 151 H 127 H Random Glucose 153 H Calcium 8.6 Troponin I Blood Type Antibody Screen Crossmatch BBK History Checked 09/06/17 09/06/17 10:39 10:49 WBC RBC Hgb Hct MCV MCH MCHC RDW Plt Count Sodium Potassium Chloride Carbon Dioxide Anion Gap BUN Creatinine Est GFR ( Amer) Est GFR (Non-Af Amer) POC Glucose (mg/dL) 127 H Random Glucose Calcium Troponin I 0.3970 H* Blood Type Antibody Screen Crossmatch BBK History Checked Assessment & Plan - Assessment and Plan (Free Text) Assessment: Patient is an 81yo male with PMHx significant for CAD, HTN, dyslipidemia, Parkinson dementia, prior CVA who was sent from [place] for evaluation of fever. Our service has been consulted for evaluation for PEG tube. -Dysphagia as result of dementia, h/o prior CVA -CAD with NSTEMI -ESBL E coli UTI -HCAP -Anemia -Dementia Plan: -Patient would be candidate for PEG tube and family is seeking this intervention - discussed with /son -Patient would need to be off plavix for 5 days, with improvement in cardiac/ pulmonary/infectious processes prior to moving forward with PEG placement -Will need cardiology/pulmonology clearance prior to procedure -Agree with broad spectrum antibiotics - currently on Merrem -NGT placed; Encourage nutritional support via NGT -No overt blood loss, responded more than adequately to transfusion; would monitor CBC and transfuse as needed - Date & Time Date: 09/06/17 Time: 14:50
--- NOTE | 2017-09-06 18:27 | CARD ---
APPROVED REPORT EKG Measurement Heart [id number] <Conclusion> Sinus rhythm with APCs and PVCs Left axis deviation Septal infarct, age undetermined T wave abnormality, consider anterior ischemia Abnormal ECG
--- NOTE | 2017-09-06 18:53 | CP.PCM.PN ---
Subjective - Date & Time of Evaluation Date of Evaluation: 09/06/17 Time of Evaluation: 08:00 - Subjective Subjective: IV RX REORDERED Objective - Vital Signs/Intake and Output Vital Signs (last 24 hours): Temp Pulse Resp BP Pulse Ox 97.9 F 95 H 20 158/70 H 96 09/06/17 15:49 09/06/17 15:49 09/06/17 15:49 09/06/17 15:49 09/06/17 15:49 Intake and Output: 09/06/17 09/06/17 06:59 18:59 Intake Total 500 Balance 500 - Medications Medications: Current Medications Acetaminophen (Tylenol 650 Mg Supp) 650 mg IN Q4 PRN PRN Reason: Temperature Last Admin: 09/03/17 18:24 Dose: 650 mg Albuterol/Ipratropium (Duoneb 3 Mg/0.5 Mg (3 Ml) Ud) 3 ml INH RQ6 PRN PRN Reason: Shortness of Breath Aspirin (Aspirin) 325 mg PO DAILY [facility] Last Admin: 09/06/17 08:24 Dose: Not Given Atorvastatin Calcium (Lipitor) 40 mg PO DAILY [facility] Last Admin: 09/06/17 08:24 Dose: Not Given Benztropine Mesylate (Cogentin) 0.5 mg PO BID [facility] Last Admin: 09/06/17 16:24 Dose: 0.5 mg Carbidopa/Levodopa (Sinemet Cr) 1 tab PO Q6H [facility] Last Admin: 09/06/17 16:23 Dose: 1 tab Clopidogrel Bisulfate (Plavix) 75 mg PO DAILY [facility] Last Admin: 09/06/17 08:25 Dose: Not Given Donepezil HCl (Aricept) 10 mg PO DAILY [facility] Last Admin: 09/06/17 08:24 Dose: Not Given Enoxaparin Sodium (Lovenox) 60 mg SC Q12 [facility] PRN Reason: Protocol Last Admin: 09/06/17 08:28 Dose: 60 mg Entacapone (Comtan) 200 mg PO TID [facility] Last Admin: 09/06/17 16:23 Dose: 200 mg Fenofibrate (Tricor) 145 mg PO HS [facility] Last Admin: 09/05/17 21:26 Dose: Not Given Meropenem 1 gm/ Sodium (Chloride) 100 mls @ 100 mls/hr IVPB Q8@0400,1200,2000 [facility] PRN Reason: Protocol Last Admin: 09/06/17 11:37 Dose: 100 mls/hr Insulin Human Lispro (Humalog) 0 units SC ACHS [facility] PRN Reason: Protocol Last Admin: 09/06/17 16:24 Dose: Not Given Memantine (Namenda) 5 mg PO BID [facility] Last Admin: 09/06/17 16:24 Dose: 5 mg Metoprolol Succinate (Toprol Xl) 100 mg PO DAILY [facility] Last Admin: 09/06/17 08:25 Dose: Not Given Pantoprazole Sodium (Protonix Ec Tab) 40 mg PO DAILY [facility] Last Admin: 09/06/17 08:25 Dose: Not Given Tamsulosin HCl (Flomax) 0.4 mg PO DAILY [facility] Last Admin: 09/06/17 08:24 Dose: Not Given - Labs Labs: 09/06/17 06:00 09/06/17 06:00 PT 14.3 Seconds (9.8-13.1) H 09/02/17 00:18 INR 1.3 (0.9-1.2) H 09/02/17 00:18 APTT 30.5 Seconds (25.6-37.1) 09/02/17 00:18 - Constitutional Appears: Cachectic, Chronically Ill - Eye Exam Eye Exam: EOMI Pupil Exam: NORMAL ACCOMODATION - Neck Exam Neck Exam: absent: Lymphadenopathy - Respiratory Exam Respiratory Exam: Decreased Breath Sounds, Rhonchi - Cardiovascular Exam Cardiovascular Exam: REGULAR RHYTHM - GI/Abdominal Exam GI & Abdominal Exam: Distended Assessment and Plan (1) UTI due to extended-spectrum beta lactamase (ESBL) producing Escherichia coli Status: Acute (2) HCAP (healthcare-associated pneumonia) Status: Acute (3) NSTEMI (non-ST elevated myocardial infarction) Status: Acute (4) Pneumonia Status: Acute (5) Abnormal EKG Status: Acute (6) CAD (coronary artery disease) Status: Acute (7) CHF exacerbation Status: Acute (8) Diabetes Status: Acute
--- NOTE | 2017-09-06 20:00 | PN ---
DATE: SUBJECTIVE: The patient has nasogastric tube feeding placed. No reported shortness of breath and in no apparent distress. The patient's at the bedside. PHYSICAL EXAMINATION: VITAL SIGNS: Blood pressure 150/77, heart rate 87, temperature 98.6, and respirations 18. HEENT: Pale conjunctivae. CHEST: Bilateral rhonchi. HEART: S1 and S2 regular. EXTREMITIES: No edema. LABORATORY DATA: Today's hemoglobin and hematocrit are 9.4 and 28.0. White count and platelet count are within normal limits. Today's troponin 0.397, which is the lowest so far. Today's SMA-7; sodium 138, potassium 3.5, chloride 105, CO2 of 22, glucose 153, BUN 8, and creatinine 0.7. ASSESSMENT: 1. Pneumonia. 2. Status post non-ST elevation myocardial infarction. 3. Known 3-vessel coronary artery disease. 4. Hypokalemia. 5. Anemia. 6. Parkinsonism. RECOMMENDATIONS: Continue IV meropenem at 1 g every 8 hours. The patient did receive potassium chloride replacement 40 mEq as an overall suspension today. Follow up BMP will be obtained tomorrow including magnesium. Lauro Alonzo MD
[2017-09-07] MEDS: Carbidopa/Levodopa 50/200 CR PO SCH ×3 (02:37→15:09)
[2017-09-07] MEDS: Meropenem 1 GM in Sodium Chloride 0.9% 100 ML IVPB SCH ×3 (04:00→20:18)
[2017-09-07 06:45] LABS: BLOOD UREA NITROGEN 7 mg/dl (9-20); CALCIUM 8.3 mg/dL (8.4-10.2); GFR AFRICAN-AMERICAN > 60; GFR NON-AFRICAN AMERICAN > 60
[2017-09-07 06:49] LABS: HEMOGLOBIN 9.1 g/dL (12.0-18.0); MEAN CELL VOLUME 83.1 fl (80.0-94.0); MEAN CORPUSCULAR HEMOGLOBIN 28.6 pg (27.0-31.0); MEAN CORPUSCULAR HGB CONC 34.4 g/dL (33.0-37.0); RBC 3.17 Mil/uL (4.40-5.90); RED CELL DISTRIBUTION WIDTH 13.8 % (11.5-14.5); WHITE BLOOD COUNT 5.6 K/uL (4.8-10.8)
[2017-09-07] MEDS: Insulin Lispro (humaLOG) 100 Units/ml Inj SC SCH ×4 (07:56→21:58)
[2017-09-07] MEDS: Metoprolol Succinate 100 mg XL Tab PO SCH (08:41)
[2017-09-07] MEDS: Pantoprazole 40 mg EC Tab PO SCH (08:42)
[2017-09-07] MEDS ORDERED: Potassium Chloride 20 mEq/15 ml LIQ UD GT ONE (08:52)
--- NOTE | 2017-09-07 10:36 | CP.PCM.PN ---
Subjective - Date & Time of Evaluation Date of Evaluation: 09/07/17 Time of Evaluation: 10:36 - Subjective Subjective: patient more awake and alert this morning minimally verbal no apparent distress hd stable Objective - Vital Signs/Intake and Output Vital Signs (last 24 hours): Temp Pulse Resp BP Pulse Ox 98.6 F 62 18 118/61 97 09/07/17 08:07 09/07/17 08:41 09/07/17 08:07 09/07/17 08:41 09/07/17 08:07 Vitals Reviewed GEN: alert, cooperative HEENT: NCAT, PERRL, EOMI HEART: RRR, +S1S2, NO MRG LUNG: CTAB, NO WRR ABD: soft, NT, ND, No HSM, No masses EXT: normal pedal pulses, normal capillary refill NEURO: awake, alert, no focal deficits SKIN: warm, dry PSYCH: minimally comfortable, difficult to assess Intake and Output: 09/07/17 09/07/17 06:59 18:59 Intake Total 1320 Output Total 550 Balance 770 - Medications Medications: Current Medications Acetaminophen (Tylenol 650 Mg Supp) 650 mg [place] Q4 PRN PRN Reason: Temperature Last Admin: 09/03/17 18:24 Dose: 650 mg Albuterol/Ipratropium (Duoneb 3 Mg/0.5 Mg (3 Ml) Ud) 3 ml INH RQ6 PRN PRN Reason: Shortness of Breath Aspirin (Aspirin) 325 mg PO DAILY [facility] Last Admin: 09/07/17 08:41 Dose: 325 mg Atorvastatin Calcium (Lipitor) 40 mg PO DAILY [facility] Last Admin: 09/07/17 08:42 Dose: 40 mg Benztropine Mesylate (Cogentin) 0.5 mg PO BID [facility] Last Admin: 09/07/17 08:41 Dose: 0.5 mg Carbidopa/Levodopa (Sinemet Cr) 1 tab PO Q6H [facility] Last Admin: 09/07/17 08:41 Dose: 1 tab Clopidogrel Bisulfate (Plavix) 75 mg PO DAILY [facility] Last Admin: 09/07/17 08:42 Dose: 75 mg Donepezil HCl (Aricept) 10 mg PO DAILY [facility] Last Admin: 09/07/17 08:42 Dose: 10 mg Entacapone (Comtan) 200 mg PO TID [facility] Last Admin: 09/07/17 08:41 Dose: 200 mg Fenofibrate (Tricor) 145 mg PO HS [facility] Last Admin: 09/06/17 21:45 Dose: 145 mg Meropenem 1 gm/ Sodium (Chloride) 100 mls @ 100 mls/hr IVPB Q8@0400,1200,2000 [facility] PRN Reason: Protocol Last Admin: 09/07/17 04:00 Dose: 100 mls/hr Insulin Human Lispro (Humalog) 0 units SC ACHS [facility] PRN Reason: Protocol Last Admin: 09/07/17 07:56 Dose: Not Given Memantine (Namenda) 5 mg PO BID [facility] Last Admin: 09/07/17 08:42 Dose: 5 mg Metoprolol Succinate (Toprol Xl) 100 mg PO DAILY [facility] Last Admin: 09/07/17 08:41 Dose: 100 mg Pantoprazole Sodium (Protonix Ec Tab) 40 mg PO DAILY [facility] Last Admin: 09/07/17 08:42 Dose: 40 mg Tamsulosin HCl (Flomax) 0.4 mg PO DAILY [facility] Last Admin: 09/07/17 08:42 Dose: 0.4 mg - Labs Labs: 09/07/17 06:00 09/07/17 06:00 PT 14.3 Seconds (9.8-13.1) H 09/02/17 00:18 INR 1.3 (0.9-1.2) H 09/02/17 00:18 APTT 30.5 Seconds (25.6-37.1) 09/02/17 00:18 Assessment and Plan - Assessment and Plan (Free Text) Plan: 81 y/o male with PMH HTN, HLD, CAD, ?DM2, Parkinson's dementia , bed bound sent from [place] for fever episodes. Tmax 102.9 in ER WBC 7 K CXR showed possible left hilar infiltrate Patient found to have elevated Trop 3.3 Patient admitted for NSTEMI, SEPSIS 2/2 ESBL ECOLI UTI, possible HCAP, DYSPHAGIA REQUIRING PEG. At present hemodynamically stable, frail, cachetic . Procalcitonin elevated , urine cx growing ESBL WBC 6 K, afebrile last 24 hours GI consult for PEG, as pt deemed NPO by speech and swallow eval. Likely SUNDAY. Discussed with family yesterday, would like PEG placement prior to discharge back to alf. for now will place NGT for meds Sepsis on admission: patient was tachycardic , tachypneic febrile with possible left hilar infiltrate, Procalcitonin elevated CXR showed possible left hilar infiltrate . Repeat CXR today showed atelectasis urine cx growing gram negative rods - ecoli ESBL+ sensitive to Amikacin, Ertapenem, ESBL +, Nitrofurantoin, Meropenem, Zosyn Follow up blood cx CHANGED ABX TO MERREM DAY 3 ID consult: Dr. Solis appreciated and followed Tylenol for fever Dysphagia NPO - FOR PEG SUNDAY GI consult appreciated for PEG Continue aspiration precautions NSTEMI/ CAD troponin elevate 3.3 but trending down to 1.7, 0.3 today when rechecked, likely still trending down minor EKG changes, increased flattening, sinusoidal t wave changes cardiology consulted Continue ASA, Statin, Lovenox therapeutic, Plavix resume Metoprolol (home medication) Echo showed normal EF and wall motion ,LVH DM2 DM diet, accucheck ACHS with SSI for now Parkinsonism / Frailty bed bound, minimally verbal, with muscle contracture Continue Carbidopa /comtan/ cogentin Aricept for dementia DNR/DNI HTN restarted metoprolol HCAP less likely repeat CXR showed no infiltrate levaquin D/Cd Aspiration precautions Anemia most likely anemia of chronic disease transfused 1 unit PRBC monitor 8.DVT PPx on lovenox
[2017-09-07] MEDS ORDERED: Potassium Chloride 20 mEq/15 ml LIQ UD PO ONE (11:11)
--- NOTE | 2017-09-07 11:25 | CP.PCM.PN ---
<Delfino Elliott - Last Filed: 09/07/17 11:22> Subjective - Date & Time of Evaluation Date of Evaluation: 09/07/17 Time of Evaluation: 08:15 - Subjective Subjective: PGY5 GI Fellow Progress Note Patient seen and examined bedside this morning. Less agitated today and responding appropriately to questions with yes/no answers. No issues overnight. 12 system ROS limited given mentation. Objective - Vital Signs/Intake and Output Vital Signs (last 24 hours): Temp Pulse Resp BP Pulse Ox 98.6 F 62 18 118/61 97 09/07/17 08:07 09/07/17 08:41 09/07/17 08:07 09/07/17 08:41 09/07/17 08:07 Intake and Output: 09/07/17 09/07/17 06:59 18:59 Intake Total 1320 Output Total 550 Balance 770 - Medications Medications: Current Medications Acetaminophen (Tylenol 650 Mg Supp) 650 mg MI Q4 PRN PRN Reason: Temperature Last Admin: 09/03/17 18:24 Dose: 650 mg Albuterol/Ipratropium (Duoneb 3 Mg/0.5 Mg (3 Ml) Ud) 3 ml INH RQ6 PRN PRN Reason: Shortness of Breath Aspirin (Aspirin) 325 mg PO DAILY [facility] Last Admin: 09/07/17 08:41 Dose: 325 mg Atorvastatin Calcium (Lipitor) 40 mg PO DAILY [facility] Last Admin: 09/07/17 08:42 Dose: 40 mg Benztropine Mesylate (Cogentin) 0.5 mg PO BID [facility] Last Admin: 09/07/17 08:41 Dose: 0.5 mg Carbidopa/Levodopa (Sinemet Cr) 1 tab PO Q6H [facility] Last Admin: 09/07/17 08:41 Dose: 1 tab Clopidogrel Bisulfate (Plavix) 75 mg PO DAILY [facility] Last Admin: 09/07/17 08:42 Dose: 75 mg Donepezil HCl (Aricept) 10 mg PO DAILY [facility] Last Admin: 09/07/17 08:42 Dose: 10 mg Entacapone (Comtan) 200 mg PO TID [facility] Last Admin: 09/07/17 08:41 Dose: 200 mg Fenofibrate (Tricor) 145 mg PO HS [facility] Last Admin: 09/06/17 21:45 Dose: 145 mg Meropenem 1 gm/ Sodium (Chloride) 100 mls @ 100 mls/hr IVPB Q8@0400,1200,2000 [facility] PRN Reason: Protocol Last Admin: 09/07/17 04:00 Dose: 100 mls/hr Insulin Human Lispro (Humalog) 0 units SC ACHS [facility] PRN Reason: Protocol Last Admin: 09/07/17 07:56 Dose: Not Given Memantine (Namenda) 5 mg PO BID [facility] Last Admin: 09/07/17 08:42 Dose: 5 mg Metoprolol Succinate (Toprol Xl) 100 mg PO DAILY [facility] Last Admin: 09/07/17 08:41 Dose: 100 mg Pantoprazole Sodium (Protonix Ec Tab) 40 mg PO DAILY [facility] Last Admin: 09/07/17 08:42 Dose: 40 mg Tamsulosin HCl (Flomax) 0.4 mg PO DAILY [facility] Last Admin: 09/07/17 08:42 Dose: 0.4 mg - Labs Labs: 09/07/17 06:00 09/07/17 06:00 PT 14.3 Seconds (9.8-13.1) H 09/02/17 00:18 INR 1.3 (0.9-1.2) H 09/02/17 00:18 APTT 30.5 Seconds (25.6-37.1) 09/02/17 00:18 - Constitutional Appears: No Acute Distress, Chronically Ill - Eye Exam Eye Exam: EOMI, PERRL - ENT Exam ENT Exam: Mucous Membranes Dry Additional comments: NGT in place - Respiratory Exam Respiratory Exam: Clear to Ausculation Bilateral. absent: Rales, Rhonchi, Wheezes - Cardiovascular Exam Cardiovascular Exam: RRR, +S1, +S2 - GI/Abdominal Exam GI & Abdominal Exam: Soft, Normal Bowel Sounds. absent: Distended, Firm, Guarding, Rigid, Tenderness, Organomegaly - Extremities Exam Extremities Exam: Normal Inspection. absent: Pedal Edema - Neurological Exam Neurological Exam: Alert, Awake, Oriented x3 - Psychiatric Exam Psychiatric exam: Normal Affect, Normal Mood - Skin Skin Exam: Dry, Warm Assessment and Plan - Assessment and Plan (Free Text) Assessment: Patient is an 81yo male with PMHx significant for CAD, HTN, dyslipidemia, Parkinson dementia, prior CVA who was sent from [place] for evaluation of fever. Our service has been consulted for evaluation for PEG tube. -Dysphagia as result of dementia, h/o prior CVA -CAD with NSTEMI, resolving -ESBL E coli UTI -HCAP -Anemia -Dementia Plan: -Plan for PEG tube Sunday pending cardiology, pulmonology clearance -Plavix has been held since 09/04 -Continue broad spectrum antibiotics with Merrem -Recommend nutrition eval for TF recs - initiate TF via NGT -No overt blood loss, continue to monitor CBC and transfuse as needed <Jorge Le - Last Filed: 09/07/17 11:35> Objective - Vital Signs/Intake and Output Vital Signs (last 24 hours): Temp Pulse Resp BP Pulse Ox 98.6 F 62 18 118/61 97 09/07/17 08:07 09/07/17 08:41 09/07/17 08:07 09/07/17 08:41 09/07/17 08:07 Intake and Output: 09/07/17 09/07/17 06:59 18:59 Intake Total 1320 Output Total 550 Balance 770 - Medications Medications: Current Medications Acetaminophen (Tylenol 650 Mg Supp) 650 mg MI Q4 PRN PRN Reason: Temperature Last Admin: 09/03/17 18:24 Dose: 650 mg Albuterol/Ipratropium (Duoneb 3 Mg/0.5 Mg (3 Ml) Ud) 3 ml INH RQ6 PRN PRN Reason: Shortness of Breath Aspirin (Aspirin) 325 mg PO DAILY [facility] Last Admin: 09/07/17 08:41 Dose: 325 mg Atorvastatin Calcium (Lipitor) 40 mg PO DAILY [facility] Last Admin: 09/07/17 08:42 Dose: 40 mg Benztropine Mesylate (Cogentin) 0.5 mg PO BID [facility] Last Admin: 09/07/17 08:41 Dose: 0.5 mg Carbidopa/Levodopa (Sinemet Cr) 1 tab PO Q6H [facility] Last Admin: 09/07/17 08:41 Dose: 1 tab Clopidogrel Bisulfate (Plavix) 75 mg PO DAILY [facility] Last Admin: 09/07/17 08:42 Dose: 75 mg Donepezil HCl (Aricept) 10 mg PO DAILY [facility] Last Admin: 09/07/17 08:42 Dose: 10 mg Entacapone (Comtan) 200 mg PO TID [facility] Last Admin: 09/07/17 08:41 Dose: 200 mg Fenofibrate (Tricor) 145 mg PO HS [facility] Last Admin: 09/06/17 21:45 Dose: 145 mg Meropenem 1 gm/ Sodium (Chloride) 100 mls @ 100 mls/hr IVPB Q8@0400,1200,2000 [facility] PRN Reason: Protocol Last Admin: 09/07/17 04:00 Dose: 100 mls/hr Insulin Human Lispro (Humalog) 0 units SC ACHS [facility] PRN Reason: Protocol Last Admin: 09/07/17 07:56 Dose: Not Given Memantine (Namenda) 5 mg PO BID [facility] Last Admin: 09/07/17 08:42 Dose: 5 mg Metoprolol Succinate (Toprol Xl) 100 mg PO DAILY [facility] Last Admin: 09/07/17 08:41 Dose: 100 mg Pantoprazole Sodium (Protonix Ec Tab) 40 mg PO DAILY [facility] Last Admin: 09/07/17 08:42 Dose: 40 mg Tamsulosin HCl (Flomax) 0.4 mg PO DAILY [facility] Last Admin: 09/07/17 08:42 Dose: 0.4 mg - Labs Labs: 09/07/17 06:00 09/07/17 06:00 PT 14.3 Seconds (9.8-13.1) H 09/02/17 00:18 INR 1.3 (0.9-1.2) H 09/02/17 00:18 APTT 30.5 Seconds (25.6-37.1) 09/02/17 00:18 Attending/Attestation - Attestation I have personally seen and examined this patient.: Yes I have fully participated in the care of the patient.: Yes I have reviewed all pertinent clinical information, including history, physical exam and plan: Yes Notes (Text): 09/07/17 11:34 patient seen at [facility]. This is a 81 year ols male with PMHx significant for CAD, HTN, dyslipidemia, Parkinson dementia, prior CVA who was sent from [place] for evaluation of fever. Our service has been consulted for evaluation for PEG tube with failed speech and swallow. Dysphagia as result of dementia, h/o prior CVA with current CAD with NSTEMI, resolving and ESBL E coli UTI and HCAP -Plan for PEG tube Sunday pending cardiology, pulmonology clearance -Plavix has been held since 09/04 -Continue broad spectrum antibiotics with Merrem -Recommend nutrition eval for TF recs - initiate TF via NGT -No overt blood loss, continue to monitor CBC and transfuse as needed
[2017-09-07] MEDS: Dextrose 5%/0.45% NS 1,000 ML IV SCH (12:47)
--- NOTE | 2017-09-07 13:48 | CP.PCM.CON ---
History of Present Illness - History of Present Illness History of Present Illness: Pulmonary consult for a 81 y/o M, resident at [facility], multiple chronic medical condition, including Hx Advance Dementia, [facility] due to high fever ( In ER 102.9 F), associated to moderate SOB on day [employer] with no relief. Worsening symptom: B/L Pneumonia on CT of 09/07/17. Initially, on 09/03/17, admitted to ICU due NSTEMI, also, Hx of CAD, ESBL E Coli UTI, generalized weakness. Aggravated factor: No verbal, clinical condition. No: CP, abdominal pain, n/v/d, LOC, syncope, sick contact. PMHx: CAD with tripple vessels disease ( No candidate for open heart surgery, did not undergo any intervention), DMII, HTN, Hyperlipidemia, Parkinson's Disease, advance Dementia, Hx Stroke, Hc Prostate Ca. Review of Systems - Review of Systems Systems not reviewed;Unavailable: Acuity of Condition, Dementia Past Patient History - Past Medical History & Family History Past Medical History?: Yes Pertinent Family History: Unknown - Past Social History Smoking Status: Former Smoker Alcohol: None Drugs: Denies - CARDIAC Hx Cardiac Disorders: Yes Hx Hypertension: Yes - PULMONARY Hx Respiratory Disorders: Yes (Hx Respiratory failure) Hx Pneumonia: Yes - NEUROLOGICAL Hx Neurological Disorder: Yes Hx Dementia: Yes Hx Parkinson's Disease: Yes - RENAL Other/Comment: PROSTATE CA - ENDOCRINE/METABOLIC Hx Endocrine Disorders: Yes Hx Diabetes Mellitus Type 2: Yes - HEMATOLOGICAL/ONCOLOGICAL Hx Blood Disorders: No - INTEGUMENTARY Hx Dermatological Problems: No - MUSCULOSKELETAL/RHEUMATOLOGICAL Hx Falls: No - GASTROINTESTINAL Hx Gastrointestinal Disorders: No - GENITOURINARY/GYNECOLOGICAL Hx Genitourinary Disorders: Yes Hx Prostate Cancer: Yes - PSYCHIATRIC Hx Psychophysiologic Disorder: Yes Hx Anxiety: Yes Hx Substance Use: No - SURGICAL HISTORY Hx Surgeries: Yes Hx Coronary Artery Bypass Graft: Yes - ANESTHESIA Hx Anesthesia: Yes Hx Anesthesia Reactions: No Meds Allergies/Adverse Reactions: Allergies Allergy/AdvReac Type Severity Reaction Status Date / Time No Known Allergies Allergy Verified 09/02/17 22:55 - Medications Medications: Current Medications Acetaminophen (Tylenol 650 Mg Supp) 650 mg RI Q4 PRN PRN Reason: Temperature Last Admin: 09/03/17 18:24 Dose: 650 mg Albuterol/Ipratropium (Duoneb 3 Mg/0.5 Mg (3 Ml) Ud) 3 ml INH RQ6 [facility] Aspirin (Aspirin) 325 mg PO DAILY [facility] Last Admin: 09/07/17 08:41 Dose: 325 mg Atorvastatin Calcium (Lipitor) 40 mg PO DAILY [facility] Last Admin: 09/07/17 08:42 Dose: 40 mg Benztropine Mesylate (Cogentin) 0.5 mg PO BID [facility] Last Admin: 09/07/17 08:41 Dose: 0.5 mg Carbidopa/Levodopa (Sinemet Cr) 1 tab PO Q6H [facility] Last Admin: 09/07/17 08:41 Dose: 1 tab Clopidogrel Bisulfate (Plavix) 75 mg PO DAILY [facility] Last Admin: 09/07/17 08:42 Dose: 75 mg Donepezil HCl (Aricept) 10 mg PO DAILY [facility] Last Admin: 09/07/17 08:42 Dose: 10 mg Entacapone (Comtan) 200 mg PO TID [facility] Last Admin: 09/07/17 12:50 Dose: 200 mg Fenofibrate (Tricor) 145 mg PO HS [facility] Last Admin: 09/06/17 21:45 Dose: 145 mg Meropenem 1 gm/ Sodium (Chloride) 100 mls @ 100 mls/hr IVPB Q8@0400,1200,2000 [facility] PRN Reason: Protocol Last Admin: 09/07/17 12:50 Dose: 100 mls/hr Insulin Human Lispro (Humalog) 0 units SC ACHS [facility] PRN Reason: Protocol Last Admin: 09/07/17 12:49 Dose: 1 unit Memantine (Namenda) 5 mg PO BID [facility] Last Admin: 09/07/17 08:42 Dose: 5 mg Metoprolol Succinate (Toprol Xl) 100 mg PO DAILY [facility] Last Admin: 09/07/17 08:41 Dose: 100 mg Pantoprazole Sodium (Protonix Ec Tab) 40 mg PO DAILY [facility] Last Admin: 09/07/17 08:42 Dose: 40 mg Tamsulosin HCl (Flomax) 0.4 mg PO DAILY [facility] Last Admin: 09/07/17 08:42 Dose: 0.4 mg Physical Exam - Constitutional Appears: Chronically Ill - Head Exam Head Exam: NORMAL INSPECTION - Eye Exam Eye Exam: PERRL - ENT Exam ENT Exam: Normal Exam - Neck Exam Neck exam: Positive for: Normal Inspection - Respiratory Exam Respiratory Exam: Decreased Breath Sounds (at bases) - Cardiovascular Exam Cardiovascular Exam: REGULAR RHYTHM - GI/Abdominal Exam GI & Abdominal Exam: Normal Bowel Sounds, Soft - Extremities Exam Extremities exam: Positive for: normal inspection - Back Exam Additional comments: Sacral ulcer stage II - Neurological Exam Additional comments: Unclear speech, open eyes to verbal stimuli. - Psychiatric Exam Additional comments: Unable to assess. - Skin Skin Exam: Warm Results - Vital Signs Recent Vital Signs: Last Vital Signs Temp 98.6 F 09/07/17 08:07 Pulse 62 09/07/17 08:41 Resp 18 09/07/17 08:07 BP 118/61 09/07/17 08:41 Pulse Ox 97 09/07/17 08:07 reviewed Ab - Labs Result Diagrams: 09/08/17 05:30 09/08/17 05:30 Labs: Laboratory Results - last 24 hr 09/06/17 09/06/17 09/06/17 15:52 17:45 21:43 WBC RBC Hgb Hct MCV MCH MCHC RDW Plt Count Sodium Potassium Chloride Carbon Dioxide Anion Gap BUN Creatinine Est GFR ( Amer) Est GFR (Non-Af Amer) POC Glucose (mg/dL) 144 H 144 H Random Glucose Calcium Magnesium Troponin I 0.3530 H* Stool Occult Blood 09/06/17 09/07/17 09/07/17 23:03 05:49 06:00 WBC 5.6 RBC 3.17 L Hgb 9.1 L Hct 26.3 L MCV 83.1 MCH 28.6 MCHC 34.4 RDW 13.8 Plt Count 216 Sodium Potassium Chloride Carbon Dioxide Anion Gap BUN Creatinine Est GFR ( Amer) Est GFR (Non-Af Amer) POC Glucose (mg/dL) 146 H Random Glucose Calcium Magnesium Troponin I 0.3470 H* Stool Occult Blood 09/07/17 09/07/17 09/07/17 06:00 08:53 11:23 WBC RBC Hgb Hct MCV MCH MCHC RDW Plt Count Sodium 134 Potassium 3.1 L Chloride 103 Carbon Dioxide 23 Anion Gap 11 BUN 7 L Creatinine 0.6 L Est GFR ( Amer) > 60 Est GFR (Non-Af Amer) > 60 POC Glucose (mg/dL) 159 H Random Glucose 144 H Calcium 8.3 L Magnesium 2.1 Troponin I Stool Occult Blood Negative reviewed JustusP. - EKG Data EKG comments: reviewed J.P. - Impressions Impression: Echo: Reviewed J.P. - Imaging and Cardiology Chest x-ray Status: Report reviewed by me (Ab) CT scan - chest Status: Report reviewed by me (Ab) Assessment & Plan (1) Bilateral pneumonia Status: Acute Priority: High (2) HCAP (healthcare-associated pneumonia) Status: Acute Priority: High - Assessment and Plan (Free Text) Plan: Rosa Jackson. - Date & Time Date: 09/07/17 Time: 11:30
--- NOTE | 2017-09-07 14:19 | CP.PCM.PN ---
Subjective - Date & Time of Evaluation Date of Evaluation: 09/07/17 Time of Evaluation: 09:00 - Subjective Subjective: awake alert responsive nad Objective - Vital Signs/Intake and Output Vital Signs (last 24 hours): Temp Pulse Resp BP Pulse Ox 98.6 F 62 18 118/61 97 09/07/17 08:07 09/07/17 08:41 09/07/17 08:07 09/07/17 08:41 09/07/17 08:07 Intake and Output: 09/07/17 09/07/17 06:59 18:59 Intake Total 1320 Output Total 550 Balance 770 - Medications Medications: Current Medications Acetaminophen (Tylenol 650 Mg Supp) 650 mg DC Q4 PRN PRN Reason: Temperature Last Admin: 09/03/17 18:24 Dose: 650 mg Albuterol/Ipratropium (Duoneb 3 Mg/0.5 Mg (3 Ml) Ud) 3 ml INH RQ6 [facility] Aspirin (Aspirin) 325 mg PO DAILY [facility] Last Admin: 09/07/17 08:41 Dose: 325 mg Atorvastatin Calcium (Lipitor) 40 mg PO DAILY [facility] Last Admin: 09/07/17 08:42 Dose: 40 mg Benztropine Mesylate (Cogentin) 0.5 mg PO BID [facility] Last Admin: 09/07/17 08:41 Dose: 0.5 mg Carbidopa/Levodopa (Sinemet Cr) 1 tab PO Q6H [facility] Last Admin: 09/07/17 08:41 Dose: 1 tab Clopidogrel Bisulfate (Plavix) 75 mg PO DAILY [facility] Last Admin: 09/07/17 08:42 Dose: 75 mg Donepezil HCl (Aricept) 10 mg PO DAILY [facility] Last Admin: 09/07/17 08:42 Dose: 10 mg Entacapone (Comtan) 200 mg PO TID [facility] Last Admin: 09/07/17 12:50 Dose: 200 mg Fenofibrate (Tricor) 145 mg PO HS [facility] Last Admin: 09/06/17 21:45 Dose: 145 mg Meropenem 1 gm/ Sodium (Chloride) 100 mls @ 100 mls/hr IVPB Q8@0400,1200,2000 [facility] PRN Reason: Protocol Last Admin: 09/07/17 12:50 Dose: 100 mls/hr Insulin Human Lispro (Humalog) 0 units SC ACHS [facility] PRN Reason: Protocol Last Admin: 09/07/17 12:49 Dose: 1 unit Memantine (Namenda) 5 mg PO BID [facility] Last Admin: 09/07/17 08:42 Dose: 5 mg Metoprolol Succinate (Toprol Xl) 100 mg PO DAILY [facility] Last Admin: 09/07/17 08:41 Dose: 100 mg Pantoprazole Sodium (Protonix Ec Tab) 40 mg PO DAILY [facility] Last Admin: 09/07/17 08:42 Dose: 40 mg Tamsulosin HCl (Flomax) 0.4 mg PO DAILY [facility] Last Admin: 09/07/17 08:42 Dose: 0.4 mg - Labs Labs: 09/07/17 06:00 09/07/17 06:00 PT 14.3 Seconds (9.8-13.1) H 09/02/17 00:18 INR 1.3 (0.9-1.2) H 09/02/17 00:18 APTT 30.5 Seconds (25.6-37.1) 09/02/17 00:18 - Constitutional Appears: Non-toxic, Cachectic, Chronically Ill - Head Exam Head Exam: NORMOCEPHALIC - Eye Exam Eye Exam: PERRL. absent: Scleral icterus - ENT Exam ENT Exam: Mucous Membranes Dry - Neck Exam Neck Exam: absent: Lymphadenopathy - Respiratory Exam Respiratory Exam: Decreased Breath Sounds, Rhonchi - Cardiovascular Exam Cardiovascular Exam: REGULAR RHYTHM, +S1, +S2 - GI/Abdominal Exam GI & Abdominal Exam: Distended, Soft. absent: Tenderness - Rectal Exam Rectal Exam: Deferred Assessment and Plan (1) UTI due to extended-spectrum beta lactamase (ESBL) producing Escherichia coli Status: Acute (2) HCAP (healthcare-associated pneumonia) Status: Acute (3) NSTEMI (non-ST elevated myocardial infarction) Status: Acute (4) Pneumonia Status: Acute (5) Abnormal EKG Status: Acute (6) CAD (coronary artery disease) Status: Acute (7) CHF exacerbation Status: Acute (8) Diabetes Status: Acute - Assessment and Plan (Free Text) Assessment: cont rx UTI
[2017-09-07] MEDS: Albuterol-Ipratrop 3 mg / 0.5 (3 ml) UD INH SCH ×2 (14:40→19:07)
--- NOTE | 2017-09-07 14:58 | CT ---
PROCEDURE: CT Chest without contrast HISTORY: pre procedural eval COMPARISON: frontal chest radiograph 09/06/2017. TECHNIQUE: Contiguous axial images were obtained through the chest without intravenous contrast enhancement. Sagittal and coronal reconstructions were performed. Radiation dose (DLP): 690.12 MGy-cm. This CT exam was performed using one or more of the following dose reduction techniques: Automated exposure control, adjustment of the mA and/or kV according to patient size, and/or use of iterative reconstruction technique. FINDINGS: LUNGS: Patchy scattered infiltrates are identified diffusely bilaterally with mild bilateral basilar dependent atelectasis present as well. Infiltrates affect upper greater than lower lobes. No gross mass evident although a few calcified granulomata are seen the right lung. Restrained motion degrades quality this examination. Central airways are grossly clear. MEDIASTINUM: A nasogastric is identified at the thoracic inlet terminating at the gastric antrum. Nine hundred aneurysmal but ectatic and atherosclerotic thoracic aorta is appreciated. The pulmonary artery appears upper limits of normal of 3.2 cm. No definite pulmonary venous congestion. Cardiac size is normal. Extensive coronary artery calcifications are identified. Lack venous contrast limits evaluation of the mediastinum with no gross lymphadenopathy appreciated. PLEURA: Minimal bilateral pleural effusions are identified. No pericardial effusion. No pneumothorax. BONES: Cholelithiasis is identified in the dependent abdomen and a cyst seen the upper pole left kidney 5.4 cm greatest dimension as imaged. UPPER ABDOMEN: Grossly unremarkable. OTHER FINDINGS: None. IMPRESSION: Scattered patchy infiltrates bilaterally and relatively diffuse fashion but affecting the upper greater than lower lobes. Minimal bilateral pleural effusions.
--- NOTE | 2017-09-07 15:52 | PN ---
DATE: CARDIOLOGY FOLLOWUP SUBJECTIVE: The patient is not in any distress, in bed. The patient's at the bedside. PHYSICAL EXAMINATION: VITAL SIGNS: Blood pressure 118/61, heart rate 62, temperature 98.6, and respirations 18. HEENT: Pale conjunctivae. CHEST: Diminished breath sounds at the bases. HEART: S1 and S2 regular. EXTREMITIES: No edema. LABORATORY DATA: Today's SMA-7; sodium 134, potassium 3.1, chloride 103, CO2 23, glucose 144, BUN 7, and creatinine 0.6. Hemoglobin and hematocrit are 9.1 and 26.3. White count and platelet count are within normal limits. Chest CT scan revealed scattered patchy infiltrate bilaterally and relatively diffuse greater than the lower lobes, minimal bilateral pleural effusion. EKG yesterday revealed atrial fibrillation, previously changes and prolonged QT interval. ASSESSMENT: 1. Status post non-ST elevation myocardial infarction. 2. Bilateral pneumonia. 3. Paroxysmal atrial fibrillation. 4. Established 3-vessel coronary artery disease. 5. Anemia. 6. Uncontrolled diabetes mellitus. 7. Hypokalemia. RECOMMENDATIONS: Case was discussed with Dr. Rodgers, the hospitalist. The patient already has received potassium replacement 40 mEq via nasogastric tube and scheduled to have BMP in a.m. Continue current Plavix, TriCor, Toprol-XL, Lipitor, and IV meropenem. Continue current aspirin. The patient will be observed through the weekend. Follow up with potassium level and EKG for ischemic changes as well as obtain one more set of troponin. In the meantime, the patient will be started on Lovenox at 40 mg subcutaneous daily. Lauro Alonzo MD
[2017-09-07] MEDS: Enoxaparin 40 mg Syringe SC SCH (17:07)
[2017-09-07] MEDS ORDERED: Chlorhexidine Gluconate 1 APPL/PKT TP ONE (17:35)
--- NOTE | 2017-09-07 20:28 | CARD ---
APPROVED REPORT EKG Measurement Heart [id number] <Conclusion> Poor data quality, interpretation may be adversely affected Atrial fibrillation with premature ventricular or aberrantly conducted complexes ST & T wave abnormality, consider anterolateral ischemia Prolonged QT Abnormal ECG
--- NOTE | 2017-09-07 20:40 | CARD ---
APPROVED REPORT EKG Measurement Heart [id number] <Conclusion> Poor data quality, interpretation may be adversely affected Atrial fibrillation Left axis deviation Septal infarct, age undetermined ST & T wave abnormality, consider anterior ischemia Abnormal ECG
[2017-09-08] MEDS: Albuterol-Ipratrop 3 mg / 0.5 (3 ml) UD INH SCH ×4 (01:00→19:08)
[2017-09-08] MEDS: Meropenem 1 GM in Sodium Chloride 0.9% 100 ML IVPB SCH ×3 (03:58→20:04)
[2017-09-08] MEDS: Insulin Lispro (humaLOG) 100 Units/ml Inj SC SCH ×4 (06:50→22:07)
[2017-09-08 07:57] LABS: HEMOGLOBIN 9.2 g/dL (12.0-18.0); MEAN CELL VOLUME 84.2 fl (80.0-94.0); MEAN CORPUSCULAR HEMOGLOBIN 27.8 pg (27.0-31.0); RBC 3.3 Mil/uL (4.40-5.90); RED CELL DISTRIBUTION WIDTH 14.1 % (11.5-14.5); WHITE BLOOD COUNT 6.4 K/uL (4.8-10.8)
[2017-09-08 08:22] LABS: BLOOD UREA NITROGEN 6 mg/dl (9-20); CALCIUM 8.5 mg/dL (8.4-10.2); GFR AFRICAN-AMERICAN > 60; GFR NON-AFRICAN AMERICAN > 60
[2017-09-08] MEDS: Dextrose 5%/0.45% NS 1,000 ML IV SCH (08:32)
--- NOTE | 2017-09-08 08:36 | RAD ---
HISTORY: NGT placement COMPARISON: Chest radiograph dated 09/06/2017 FINDINGS: LUNGS: Bilateral patchy infiltrates. PLEURA: No significant pleural effusion identified, no pneumothorax apparent. CARDIOVASCULAR: Atherosclerotic aortic calcifications. Cardiomediastinal silhouette within normal limits. OSSEOUS STRUCTURES: Unchanged. VISUALIZED UPPER ABDOMEN: Normal. OTHER FINDINGS: Enteric tube, unchanged. IMPRESSION: Stable enteric tube. Stable bilateral patchy infiltrates. No significant interval change.
[2017-09-08] MEDS: Enoxaparin 40 mg Syringe SC SCH (08:42)
[2017-09-08] MEDS: Pantoprazole 40 mg Susp UD NG SCH (08:44)
--- NOTE | 2017-09-08 12:05 | CP.PCM.PN ---
Subjective - Date & Time of Evaluation Date of Evaluation: 09/08/17 Time of Evaluation: 08:00 - Subjective Subjective: awake alert NAD Objective - Vital Signs/Intake and Output Vital Signs (last 24 hours): Temp Pulse Resp BP Pulse Ox 98.8 F 78 20 137/69 98 09/08/17 08:59 09/08/17 08:59 09/08/17 08:59 09/08/17 08:59 09/08/17 08:59 Intake and Output: 09/08/17 09/08/17 06:59 18:59 Intake Total 1300 300 Output Total 600 50 Balance 700 250 - Medications Medications: Current Medications Albuterol/Ipratropium (Duoneb 3 Mg/0.5 Mg (3 Ml) Ud) 3 ml INH RQ6 [facility] Last Admin: 09/08/17 07:37 Dose: 3 ml Aspirin (Aspirin) 325 mg NG DAILY [facility] Last Admin: 09/08/17 08:48 Dose: 325 mg Atorvastatin Calcium (Lipitor) 40 mg NG DAILY [facility] Last Admin: 09/08/17 08:43 Dose: 40 mg Benztropine Mesylate (Cogentin) 0.5 mg NG BID [facility] Last Admin: 09/08/17 08:44 Dose: 0.5 mg Carbidopa/Levodopa (Sinemet) 1 tab NG Q6 [facility] Last Admin: 09/08/17 09:16 Dose: 1 tab Clopidogrel Bisulfate (Plavix) 75 mg PO DAILY [facility] Last Admin: 09/08/17 08:43 Dose: 75 mg Donepezil HCl (Aricept) 10 mg NG DAILY [facility] Last Admin: 09/08/17 08:45 Dose: 10 mg Enoxaparin Sodium (Lovenox) 40 mg SC DAILY [facility] PRN Reason: Protocol Last Admin: 09/08/17 08:42 Dose: 40 mg Entacapone (Comtan) 200 mg NG TID [facility] Last Admin: 09/08/17 08:43 Dose: 200 mg Fenofibrate (Tricor) 145 mg PO HS [facility] Last Admin: 09/07/17 22:10 Dose: 145 mg Meropenem 1 gm/ Sodium (Chloride) 100 mls @ 100 mls/hr IVPB Q8@0400,1200,2000 [facility] PRN Reason: Protocol Last Admin: 09/08/17 11:37 Dose: 100 mls/hr Insulin Human Lispro (Humalog) 0 units SC [facility] PRN Reason: Protocol Last Admin: 09/08/17 06:50 Dose: Not Given Memantine (Namenda) 5 mg NG BID [facility] Last Admin: 09/08/17 08:43 Dose: 5 mg Metoprolol Tartrate (Lopressor) 50 mg NG BID [facility] Last Admin: 09/08/17 08:45 Dose: 50 mg Pantoprazole Sodium (Protonix Susp) 40 mg NG DAILY [facility] Last Admin: 09/08/17 08:44 Dose: 40 mg Tamsulosin HCl (Flomax) 0.4 mg NG DAILY [facility] Last Admin: 09/08/17 08:43 Dose: 0.4 mg - Labs Labs: 09/08/17 05:30 09/08/17 05:30 PT 14.3 Seconds (9.8-13.1) H 09/02/17 00:18 INR 1.3 (0.9-1.2) H 09/02/17 00:18 APTT 30.5 Seconds (25.6-37.1) 09/02/17 00:18 - Constitutional Appears: Non-toxic, Chronically Ill - Head Exam Head Exam: NORMOCEPHALIC - Eye Exam Eye Exam: PERRL - ENT Exam ENT Exam: Mucous Membranes Dry - Neck Exam Neck Exam: absent: Lymphadenopathy - Respiratory Exam Respiratory Exam: Decreased Breath Sounds - Cardiovascular Exam Cardiovascular Exam: REGULAR RHYTHM - GI/Abdominal Exam GI & Abdominal Exam: Distended, Soft - Rectal Exam Rectal Exam: Deferred - Exam Exam: NORMAL INSPECTION - Extremities Exam Extremities Exam: absent: Pedal Edema - Back Exam Back Exam: absent: CVA tenderness (L), CVA tenderness (R) - Neurological Exam Neurological Exam: Alert, Altered, CN II-XII Intact. absent: Oriented x3 Neuro motor strength exam: Left Upper Extremity: 2/1, Right Upper Extremity: 2/1 , Left Lower Extremity: 2/1, Right Lower Extremity: 2/1 - Psychiatric Exam Psychiatric exam: Depressed - Skin Skin Exam: Dry Assessment and Plan (1) UTI due to extended-spectrum beta lactamase (ESBL) producing Escherichia coli Status: Acute (2) HCAP (healthcare-associated pneumonia) Status: Acute (3) NSTEMI (non-ST elevated myocardial infarction) Status: Acute (4) Pneumonia Status: Acute (5) Abnormal EKG Status: Acute (6) CAD (coronary artery disease) Status: Acute (7) CHF exacerbation Status: Acute (8) Diabetes Status: Acute - Assessment and Plan (Free Text) Assessment: cont rx for 14 days for ESBL sepsis
--- NOTE | 2017-09-08 13:48 | CP.PCM.PN ---
Subjective - Date & Time of Evaluation Date of Evaluation: 09/08/17 Time of Evaluation: 12:00 - Subjective Subjective: Patient seen and examined at bedside. More lethargic today. Minimally verbal. HD stable in no apparent distress. Appears comfortable. Objective - Vital Signs/Intake and Output Vital Signs (last 24 hours): Temp Pulse Resp BP Pulse Ox 98.8 F 78 20 137/69 98 09/08/17 08:59 09/08/17 08:59 09/08/17 08:59 09/08/17 08:59 09/08/17 08:59 Intake and Output: 09/08/17 09/08/17 06:59 18:59 Intake Total 1300 300 Output Total 600 50 Balance 700 250 - Medications Medications: Current Medications Albuterol/Ipratropium (Duoneb 3 Mg/0.5 Mg (3 Ml) Ud) 3 ml INH RQ6 [facility] Last Admin: 09/08/17 13:03 Dose: 3 ml Aspirin (Aspirin) 325 mg NG DAILY [facility] Last Admin: 09/08/17 08:48 Dose: 325 mg Atorvastatin Calcium (Lipitor) 40 mg NG DAILY [facility] Last Admin: 09/08/17 08:43 Dose: 40 mg Benztropine Mesylate (Cogentin) 0.5 mg NG BID [facility] Last Admin: 09/08/17 08:44 Dose: 0.5 mg Carbidopa/Levodopa (Sinemet) 1 tab NG Q6 [facility] Last Admin: 09/08/17 09:16 Dose: 1 tab Clopidogrel Bisulfate (Plavix) 75 mg PO DAILY [facility] Last Admin: 09/08/17 08:43 Dose: 75 mg Donepezil HCl (Aricept) 10 mg NG DAILY [facility] Last Admin: 09/08/17 08:45 Dose: 10 mg Enoxaparin Sodium (Lovenox) 40 mg SC DAILY [facility] PRN Reason: Protocol Last Admin: 09/08/17 08:42 Dose: 40 mg Entacapone (Comtan) 200 mg NG TID [facility] Last Admin: 09/08/17 13:31 Dose: 200 mg Fenofibrate (Tricor) 145 mg PO HS [facility] Last Admin: 09/07/17 22:10 Dose: 145 mg Meropenem 1 gm/ Sodium (Chloride) 100 mls @ 100 mls/hr IVPB Q8@0400,1200,2000 [facility] PRN Reason: Protocol Last Admin: 09/08/17 11:37 Dose: 100 mls/hr Insulin Human Lispro (Humalog) 0 units SC ACHS [facility] PRN Reason: Protocol Last Admin: 09/08/17 12:26 Dose: Not Given Memantine (Namenda) 5 mg NG BID [facility] Last Admin: 09/08/17 08:43 Dose: 5 mg Metoprolol Tartrate (Lopressor) 50 mg NG BID [facility] Last Admin: 09/08/17 08:45 Dose: 50 mg Pantoprazole Sodium (Protonix Susp) 40 mg NG DAILY [facility] Last Admin: 09/08/17 08:44 Dose: 40 mg Tamsulosin HCl (Flomax) 0.4 mg NG DAILY [facility] Last Admin: 09/08/17 08:43 Dose: 0.4 mg - Labs Labs: 09/08/17 05:30 09/08/17 05:30 PT 14.3 Seconds (9.8-13.1) H 09/02/17 00:18 INR 1.3 (0.9-1.2) H 09/02/17 00:18 APTT 30.5 Seconds (25.6-37.1) 09/02/17 00:18 - Additional Findings Additional findings: Physical exam: Constitutional- cachectic male, lethargic, sleeping comfortably, minimally responsive to voice Head- NCAT, PERRL Eye- PERRL, EOMI ENT- normal exam, MMM. Neck- normal inspection, supple, no JVD Respiratory- CTAB, no wheezes rales rhonchi Cardiovascular- RRR, +S1, +S2 no MRG GI/Abdominal- normal bowel sounds, soft, no mass, no hsm Skin- warm, dry Extremities Exam- normal capillary refill, normal inspection Neurological Exam- unable to be fully assessed due to mental status Psych- unable to be fully assessed due to mental status. Lethargic and somnolent. Assessment and Plan - Assessment and Plan (Free Text) Plan: 81 y/o male with PMH HTN, HLD, CAD, ?DM2, Parkinson's dementia , bed bound sent from [place] for fever episodes. Tmax 102.9 in ER WBC 7 K CXR showed possible left hilar infiltrate Patient found to have elevated Trop 3.3 Patient admitted for NSTEMI, SEPSIS 2/2 ESBL ECOLI UTI, possible HCAP, DYSPHAGIA REQUIRING PEG. At present hemodynamically stable, frail, cachetic . Procalcitonin elevated , urine cx growing ESBL WBC 6 K, afebrile last 24 hours GI consult for PEG, as pt deemed NPO by speech and swallow eval. Likely SUNDAY. Discussed with family yesterday, would like PEG placement prior to discharge back to [facility]. for now will place NGT for meds Sepsis- improving on admission: patient was tachycardic , tachypneic febrile with possible left hilar infiltrate, Procalcitonin elevated CXR showed possible left hilar infiltrate . Repeat CXR today showed atelectasis urine cx growing gram negative rods - ecoli ESBL+ sensitive to Amikacin, Ertapenem, ESBL +, Nitrofurantoin, Meropenem, Zosyn Follow up blood cx CHANGED ABX TO MERREM DAY 4 ID consult: Dr. Solis appreciated and followed Tylenol for fever Dysphagia NPO - FOR PEG SUNDAY GI consult appreciated for PEG Continue aspiration precautions D/C Plavix NSTEMI/ CAD troponin elevate 3.3 but trending down to 1.7, 0.3 today when rechecked, likely still trending down minor EKG changes, increased flattening, sinusoidal t wave changes cardiology consulted Continue ASA, Statin, Lovenox therapeutic. Plavix on hold for PEG tube placement resume Metoprolol (home medication) Echo showed normal EF and wall motion ,LVH DM2 DM diet, accucheck ACHS with SSI for now Parkinsonism / Frailty bed bound, minimally verbal, with muscle contracture Continue Carbidopa /comtan/ cogentin Aricept for dementia DNR/DNI HTN restarted metoprolol HCAP less likely repeat CXR showed no infiltrate levaquin D/Cd Aspiration precautions Anemia most likely anemia of chronic disease transfused 1 unit PRBC monitor 8.DVT PPx on lovenox
--- NOTE | 2017-09-08 14:23 | PN ---
DATE: SUBJECTIVE: The patient is slightly restless. The patient's at the bedside. He is in no apparent respiratory distress. PHYSICAL EXAMINATION: VITAL SIGNS: Blood pressure 137/69, heart rate 78, temperature 98.8, and respirations 20. HEENT: Pale conjunctivae. CHEST: Diminished breath sounds at the bases. HEART: S1 and S2 regular. ABDOMEN: Soft. EXTREMITIES: Contracture deformity. LABORATORY DATA: Hemoglobin and hematocrit are 9.2 and 27.8. White count and platelet counts are within normal limits. , which is corrected compared to 3.1 yesterday. Glucose 114. BUN and creatinine are 6 and 0.6 respectively. Today's SMA-7 is within normal limits. Today's chest x-ray revealed stable stable bilateral patchy infiltrate. No significant interval change. ASSESSMENT: 1. Status post non-ST elevation myocardial infarction. 2. Paroxysmal atrial fibrillation. 3. Improved hypokalemia. 4. Bilateral pneumonia. 5. Anemia. RECOMMENDATIONS: Continue current aspirin 325 mg daily, Lopressor 50 mg once daily, Lipitor 40 mg once a day, IV meropenem 1 g every 8 hours, TriCor 145 mg once a day. I will obtain 12-lead EKG today and tomorrow prior to gastrostomy feeding tube placement on Sunday. Lauro Alonzo MD
--- NOTE | 2017-09-08 14:36 | CP.PCM.PN ---
Subjective - Date & Time of Evaluation Date of Evaluation: 09/08/17 Time of Evaluation: 13:00 - Subjective Subjective: F/U HCAP Pt awake, no respiratory distress, with mumbling sounds, follows commands, moving all extremities on commands, at bedside. Objective - Vital Signs/Intake and Output Vital Signs (last 24 hours): Temp Pulse Resp BP Pulse Ox 98.8 F 78 20 137/69 98 09/08/17 08:59 09/08/17 08:59 09/08/17 08:59 09/08/17 08:59 09/08/17 08:59 Intake and Output: 09/08/17 09/08/17 06:59 18:59 Intake Total 1300 300 Output Total 600 50 Balance 700 250 - Medications Medications: Current Medications Albuterol/Ipratropium (Duoneb 3 Mg/0.5 Mg (3 Ml) Ud) 3 ml INH RQ6 [facility] Last Admin: 09/08/17 13:03 Dose: 3 ml Aspirin (Aspirin) 325 mg NG DAILY [facility] Last Admin: 09/08/17 08:48 Dose: 325 mg Atorvastatin Calcium (Lipitor) 40 mg NG DAILY [facility] Last Admin: 09/08/17 08:43 Dose: 40 mg Benztropine Mesylate (Cogentin) 0.5 mg NG BID [facility] Last Admin: 09/08/17 08:44 Dose: 0.5 mg Carbidopa/Levodopa (Sinemet) 1 tab NG Q6 [facility] Last Admin: 09/08/17 09:16 Dose: 1 tab Clopidogrel Bisulfate (Plavix) 75 mg PO DAILY [facility] Last Admin: 09/08/17 08:43 Dose: 75 mg Donepezil HCl (Aricept) 10 mg NG DAILY [facility] Last Admin: 09/08/17 08:45 Dose: 10 mg Enoxaparin Sodium (Lovenox) 40 mg SC DAILY [facility] PRN Reason: Protocol Last Admin: 09/08/17 08:42 Dose: 40 mg Entacapone (Comtan) 200 mg NG TID [facility] Last Admin: 09/08/17 13:31 Dose: 200 mg Fenofibrate (Tricor) 145 mg PO HS [facility] Last Admin: 09/07/17 22:10 Dose: 145 mg Meropenem 1 gm/ Sodium (Chloride) 100 mls @ 100 mls/hr IVPB Q8@0400,1200,2000 [facility] PRN Reason: Protocol Last Admin: 09/08/17 11:37 Dose: 100 mls/hr Insulin Human Lispro (Humalog) 0 units SC ACHS [facility] PRN Reason: Protocol Last Admin: 09/08/17 12:26 Dose: Not Given Memantine (Namenda) 5 mg NG BID [facility] Last Admin: 09/08/17 08:43 Dose: 5 mg Metoprolol Tartrate (Lopressor) 50 mg NG BID [facility] Last Admin: 09/08/17 08:45 Dose: 50 mg Pantoprazole Sodium (Protonix Susp) 40 mg NG DAILY [facility] Last Admin: 09/08/17 08:44 Dose: 40 mg Tamsulosin HCl (Flomax) 0.4 mg NG DAILY [facility] Last Admin: 09/08/17 08:43 Dose: 0.4 mg - Labs Labs: 09/08/17 05:30 09/08/17 05:30 PT 14.3 Seconds (9.8-13.1) H 09/02/17 00:18 INR 1.3 (0.9-1.2) H 09/02/17 00:18 APTT 30.5 Seconds (25.6-37.1) 09/02/17 00:18 - Constitutional Appears: Chronically Ill - Head Exam Head Exam: NORMAL INSPECTION - Eye Exam Eye Exam: PERRL - ENT Exam ENT Exam: Normal Exam - Neck Exam Neck Exam: Normal Inspection - Respiratory Exam Respiratory Exam: Decreased Breath Sounds (at bases) - Cardiovascular Exam Cardiovascular Exam: REGULAR RHYTHM - GI/Abdominal Exam GI & Abdominal Exam: Soft, Normal Bowel Sounds - Extremities Exam Extremities Exam: Normal Inspection - Back Exam Additional comments: Sacral ulcer stage II - Neurological Exam Neurological Exam: Awake, CN II-XII Intact Additional comments: Mumbling sounds, follows commands, moving all extremities on commands. - Skin Skin Exam: Warm Assessment and Plan (1) Bilateral pneumonia Status: Acute (2) HCAP (healthcare-associated pneumonia) Status: Acute - Assessment and Plan (Free Text) Plan: Continue Duoneb and rest of Tx.
--- NOTE | 2017-09-09 00:11 | CARD ---
APPROVED REPORT EKG Measurement Heart [id number] <Conclusion> Atrial fibrillation Septal infarct, age undetermined ST & T wave abnormality, consider anterior ischemia Abnormal ECG
[2017-09-09] MEDS: Albuterol-Ipratrop 3 mg / 0.5 (3 ml) UD INH SCH ×4 (01:00→19:46)
[2017-09-09] MEDS: Meropenem 1 GM in Sodium Chloride 0.9% 100 ML IVPB SCH ×3 (04:12→21:14)
[2017-09-09] MEDS: Insulin Lispro (humaLOG) 100 Units/ml Inj SC SCH ×4 (06:52→23:33)
--- NOTE | 2017-09-09 11:16 | RAD ---
PROCEDURE: CHEST RADIOGRAPH, 1 VIEW HISTORY: post NG tube insertion COMPARISON: Chest radiograph dated 09/07/2017 FINDINGS: LUNGS: Bilateral patchy infiltrates. PLEURA: No pneumothorax or pleural fluid seen. CARDIOVASCULAR: Atherosclerotic aortic calcifications. Cardiomediastinal silhouette unchanged. OSSEOUS STRUCTURES: Unchanged. VISUALIZED UPPER ABDOMEN: Normal. OTHER FINDINGS: Enteric tube, unchanged. IMPRESSION: Similar appearance of bilateral patchy infiltrates. No significant interval change.
--- NOTE | 2017-09-09 12:02 | CP.PCM.PN ---
Subjective - Date & Time of Evaluation Date of Evaluation: 09/09/17 Time of Evaluation: 10:00 - Subjective Subjective: Patient seen and examined. Non-verbal but appeared calm. Objective - Vital Signs/Intake and Output Vital Signs (last 24 hours): Temp Pulse Resp BP Pulse Ox 97.6 F 85 22 145/70 93 L 09/09/17 08:05 09/09/17 08:05 09/09/17 08:05 09/09/17 08:05 09/09/17 08:05 Intake and Output: 09/09/17 09/09/17 06:59 18:59 Intake Total 1560 Output Total 650 Balance 910 - Medications Medications: Current Medications Albuterol/Ipratropium (Duoneb 3 Mg/0.5 Mg (3 Ml) Ud) 3 ml INH RQ6 [facility] Last Admin: 09/09/17 07:28 Dose: 3 ml Aspirin (Aspirin) 325 mg NG DAILY [facility] Last Admin: 09/08/17 08:48 Dose: 325 mg Atorvastatin Calcium (Lipitor) 40 mg NG DAILY [facility] Last Admin: 09/08/17 08:43 Dose: 40 mg Benztropine Mesylate (Cogentin) 0.5 mg NG BID [facility] Last Admin: 09/08/17 16:46 Dose: 0.5 mg Carbidopa/Levodopa (Sinemet) 1 tab NG Q6 [facility] Last Admin: 09/09/17 04:13 Dose: 1 tab Clopidogrel Bisulfate (Plavix) 75 mg PO DAILY [facility] Last Admin: 09/08/17 08:43 Dose: 75 mg Donepezil HCl (Aricept) 10 mg NG DAILY [facility] Last Admin: 09/08/17 08:45 Dose: 10 mg Enoxaparin Sodium (Lovenox) 40 mg SC DAILY [facility] PRN Reason: Protocol Last Admin: 09/08/17 08:42 Dose: 40 mg Entacapone (Comtan) 200 mg NG TID [facility] Last Admin: 09/08/17 16:46 Dose: 200 mg Fenofibrate (Tricor) 145 mg PO HS [facility] Last Admin: 09/08/17 22:06 Dose: 145 mg Meropenem 1 gm/ Sodium (Chloride) 100 mls @ 100 mls/hr IVPB Q8@0400,1200,2000 [facility] PRN Reason: Protocol Last Admin: 09/09/17 04:12 Dose: 100 mls/hr Insulin Human Lispro (Humalog) 0 units SC [facility] PRN Reason: Protocol Last Admin: 09/09/17 06:52 Dose: Not Given Memantine (Namenda) 5 mg NG BID [facility] Last Admin: 09/08/17 16:46 Dose: 5 mg Metoprolol Tartrate (Lopressor) 50 mg NG BID [facility] Last Admin: 09/08/17 16:45 Dose: 50 mg Pantoprazole Sodium (Protonix Susp) 40 mg NG DAILY [facility] Last Admin: 09/08/17 08:44 Dose: 40 mg Tamsulosin HCl (Flomax) 0.4 mg NG DAILY [facility] Last Admin: 09/08/17 08:43 Dose: 0.4 mg - Labs Labs: 09/08/17 05:30 09/08/17 05:30 PT 14.3 Seconds (9.8-13.1) H 09/02/17 00:18 INR 1.3 (0.9-1.2) H 09/02/17 00:18 APTT 30.5 Seconds (25.6-37.1) 09/02/17 00:18 - Constitutional Appears: No Acute Distress, Cachectic, Other (non-verbal with contracture) - Head Exam Head Exam: ATRAUMATIC - Eye Exam Eye Exam: absent: Scleral icterus - ENT Exam ENT Exam: Mucous Membranes Moist - Neck Exam Neck Exam: absent: Meningismus - Respiratory Exam Respiratory Exam: absent: Rales, Rhonchi, Wheezes, Respiratory Distress - Cardiovascular Exam Cardiovascular Exam: REGULAR RHYTHM, +S1, +S2 - GI/Abdominal Exam GI & Abdominal Exam: Soft. absent: Tenderness - Rectal Exam Rectal Exam: Deferred - Extremities Exam Extremities Exam: absent: Normal Inspection (contracted), Pedal Edema - Neurological Exam Neurological Exam: absent: Oriented x3 (non-verbal with eyes closed, not following commands) - Psychiatric Exam Psychiatric exam: Flat Affect - Skin Skin Exam: Dry, Intact Assessment and Plan - Assessment and Plan (Free Text) Assessment: 81 yo male with history of HTN, HLD, CAD, DM2 and Parkinson's dementia, bed bound sent from [place] because of fever episodes. CXR showed bilateral infiltrate. He was also found to have elevated Troponins. Patient was admitted and managed for NSTEMI and HCAP 1. Sepsis CXR showed bilateral patchy infiltrate urine culture grew ESBL E Coli sensitive to Meropenem no growth on blood culture continue Meropenem Dr Solis on ID consult 2.NSTEMI/ CAD Continue ASA, Statin, Plavix and Metoprolol 3. DM2 BS controlled without medications DM diet, accucheck ACHS with SSI for now HgA1C, BMP in am 4. Parkinsonism / Frailty bed bound, non verbal with contracture Continue Carbidopa /Comtan/ Cogentin Aricept for dementia for PEG tube insertion tomorrow pending cardiology and pulmonary clearance 5. HTN BP stable continue Metoprolol 6.HCAP probably secondary to aspiration repeat today CXray showed bilateral patchy infiltrate, no change from previous 7. Anemia most likley anemia of chronic disease Hgb 9.2 8.DVT Prophylaxis on Lovenox
[2017-09-09] MEDS: Pantoprazole 40 mg Susp UD NG SCH (13:08)
[2017-09-09] MEDS: Enoxaparin 40 mg Syringe SC SCH (13:09)
--- NOTE | 2017-09-09 13:10 | PN ---
DATE: SUBJECTIVE: The patient was restless and he pulled his nasogastric tube which was replaced again. PHYSICAL EXAMINATION: VITAL SIGNS: Blood pressure of 145/70, heart rate of 85, temperature of 97.6, and respirations of 22. HEENT: Pale conjunctivae. CHEST: Minimal rhonchi. HEART: S1 and S2 irregular. ABDOMEN: Soft. EXTREMITIES: Contracture deformity of the lower extremity. LABORATORY DATA: EKG yesterday revealed atrial fibrillation at rate of [address]-T wave changes. ASSESSMENT: 1. Status post non-ST elevation myocardial infarction. 2. Known history of three-vessel coronary artery disease. 3. Parkinsonism. 4. Pneumonia. 5. Dementia. RECOMMENDATIONS: Case was discussed with the patient's son on the phone and the patient will be cleared for the procedure if it can be done under local anesthesia. In the meantime, continue current Lopressor, Lipitor and aspirin. Plavix has been on hold. If gastrostomy tube cannot be placed under local anesthesia, then the patient has to be observed for few more days until acute ischemic changes are resolved. Lauro Alonzo MD
--- NOTE | 2017-09-09 13:47 | CP.PCM.PN ---
<Tim Cummings - Last Filed: 09/09/17 13:50> Subjective - Date & Time of Evaluation Date of Evaluation: 09/09/17 Time of Evaluation: 09:00 - Subjective Subjective: PGY5 GI Fellow Progress Note Patient seen and examined bedside this morning. Asleep and difficult to arouse. No issues overnight. 12 system ROS limited given mentation. Objective - Vital Signs/Intake and Output Vital Signs (last 24 hours): Temp Pulse Resp BP Pulse Ox 97.6 F 85 22 145/70 93 L 09/09/17 08:05 09/09/17 08:05 09/09/17 08:05 09/09/17 13:07 09/09/17 08:05 Intake and Output: 09/09/17 09/09/17 06:59 18:59 Intake Total 1560 Output Total 650 Balance 910 - Medications Medications: Current Medications Albuterol/Ipratropium (Duoneb 3 Mg/0.5 Mg (3 Ml) Ud) 3 ml INH RQ6 [facility] Last Admin: 09/09/17 13:04 Dose: 3 ml Aspirin (Aspirin) 325 mg NG DAILY [facility] Last Admin: 09/08/17 08:48 Dose: 325 mg Atorvastatin Calcium (Lipitor) 40 mg NG DAILY [facility] Last Admin: 09/09/17 13:06 Dose: 40 mg Benztropine Mesylate (Cogentin) 0.5 mg NG BID [facility] Last Admin: 09/09/17 13:07 Dose: 0.5 mg Carbidopa/Levodopa (Sinemet) 1 tab NG Q6 [facility] Last Admin: 09/09/17 13:08 Dose: 1 tab Clopidogrel Bisulfate (Plavix) 75 mg PO DAILY [facility] Last Admin: 09/08/17 08:43 Dose: 75 mg Donepezil HCl (Aricept) 10 mg NG DAILY [facility] Last Admin: 09/09/17 13:07 Dose: 10 mg Enoxaparin Sodium (Lovenox) 40 mg SC DAILY [facility] PRN Reason: Protocol Last Admin: 09/09/17 13:09 Dose: 40 mg Entacapone (Comtan) 200 mg NG TID [facility] Last Admin: 09/09/17 13:08 Dose: 200 mg Fenofibrate (Tricor) 145 mg PO HS [facility] Last Admin: 09/08/17 22:06 Dose: 145 mg Meropenem 1 gm/ Sodium (Chloride) 100 mls @ 100 mls/hr IVPB Q8@0400,1200,2000 [facility] PRN Reason: Protocol Last Admin: 09/09/17 13:08 Dose: 100 mls/hr Insulin Human Lispro (Humalog) 0 units SC ACHS [facility] PRN Reason: Protocol Last Admin: 09/09/17 12:57 Dose: Not Given Memantine (Namenda) 5 mg NG BID [facility] Last Admin: 09/09/17 13:07 Dose: 5 mg Metoprolol Tartrate (Lopressor) 50 mg NG BID [facility] Last Admin: 09/09/17 13:07 Dose: 50 mg Pantoprazole Sodium (Protonix Susp) 40 mg NG DAILY [facility] Last Admin: 09/09/17 13:08 Dose: 40 mg Tamsulosin HCl (Flomax) 0.4 mg NG DAILY [facility] Last Admin: 09/09/17 13:06 Dose: 0.4 mg - Labs Labs: 09/08/17 05:30 09/08/17 05:30 PT 14.3 Seconds (9.8-13.1) H 09/02/17 00:18 INR 1.3 (0.9-1.2) H 09/02/17 00:18 APTT 30.5 Seconds (25.6-37.1) 09/02/17 00:18 - Constitutional Appears: No Acute Distress - Head Exam Head Exam: ATRAUMATIC, NORMOCEPHALIC - Eye Exam Eye Exam: Normal appearance - ENT Exam ENT Exam: Mucous Membranes Moist, Normal Exam - Neck Exam Neck Exam: Normal Inspection - Respiratory Exam Respiratory Exam: Clear to Ausculation Bilateral, NORMAL BREATHING PATTERN. absent: Rales, Rhonchi, Wheezes, Respiratory Distress - GI/Abdominal Exam GI & Abdominal Exam: Soft, Normal Bowel Sounds. absent: Firm, Guarding, Rigid, Tenderness - Extremities Exam Extremities Exam: absent: Joint Swelling, Pedal Edema - Neurological Exam Neurological Exam: Altered - Skin Skin Exam: Dry, Intact, Normal Color, Warm Assessment and Plan - Assessment and Plan (Free Text) Assessment: Patient is an 81yo male with PMHx significant for CAD, HTN, dyslipidemia, Parkinson dementia, prior CVA who was sent from [place] for evaluation of fever. Our service has been consulted for evaluation for PEG tube. -Dysphagia as result of dementia, h/o prior CVA -CAD with NSTEMI, resolving -ESBL E coli UTI -HCAP -Anemia -Dementia Plan: -Plan for PEG tube Sunday -Plavix has been held since 09/04 -Continue broad spectrum antibiotics with Merrem -Hold tube feeds after midnight -No overt blood loss, continue to monitor CBC and transfuse as needed D/W Dr. Alva <Ji Alva - Last Filed: 09/09/17 16:08> Objective - Vital Signs/Intake and Output Vital Signs (last 24 hours): Temp Pulse Resp BP Pulse Ox 97.6 F 85 22 145/70 93 L 09/09/17 08:05 09/09/17 08:05 09/09/17 08:05 09/09/17 13:07 09/09/17 08:05 Intake and Output: 09/09/17 09/09/17 06:59 18:59 Intake Total 1560 Output Total 650 Balance 910 - Medications Medications: Current Medications Albuterol/Ipratropium (Duoneb 3 Mg/0.5 Mg (3 Ml) Ud) 3 ml INH RQ6 [facility] Last Admin: 09/09/17 13:04 Dose: 3 ml Aspirin (Aspirin) 325 mg NG DAILY [facility] Last Admin: 09/08/17 08:48 Dose: 325 mg Atorvastatin Calcium (Lipitor) 40 mg NG DAILY [facility] Last Admin: 09/09/17 13:06 Dose: 40 mg Benztropine Mesylate (Cogentin) 0.5 mg NG BID [facility] Last Admin: 09/09/17 13:07 Dose: 0.5 mg Carbidopa/Levodopa (Sinemet) 1 tab NG Q6 [facility] Last Admin: 09/09/17 13:08 Dose: 1 tab Clopidogrel Bisulfate (Plavix) 75 mg PO DAILY [facility] Last Admin: 09/08/17 08:43 Dose: 75 mg Donepezil HCl (Aricept) 10 mg NG DAILY [facility] Last Admin: 09/09/17 13:07 Dose: 10 mg Enoxaparin Sodium (Lovenox) 40 mg SC DAILY [facility] PRN Reason: Protocol Last Admin: 09/09/17 13:09 Dose: 40 mg Entacapone (Comtan) 200 mg NG TID [facility] Last Admin: 09/09/17 13:08 Dose: 200 mg Fenofibrate (Tricor) 145 mg PO HS [facility] Last Admin: 09/08/17 22:06 Dose: 145 mg Meropenem 1 gm/ Sodium (Chloride) 100 mls @ 100 mls/hr IVPB Q8@0400,1200,2000 [facility] PRN Reason: Protocol Last Admin: 09/09/17 13:08 Dose: 100 mls/hr Insulin Human Lispro (Humalog) 0 units SC ACHS [facility] PRN Reason: Protocol Last Admin: 09/09/17 12:57 Dose: Not Given Memantine (Namenda) 5 mg NG BID [facility] Last Admin: 09/09/17 13:07 Dose: 5 mg Metoprolol Tartrate (Lopressor) 50 mg NG BID [facility] Last Admin: 09/09/17 13:07 Dose: 50 mg Pantoprazole Sodium (Protonix Susp) 40 mg NG DAILY [facility] Last Admin: 09/09/17 13:08 Dose: 40 mg Tamsulosin HCl (Flomax) 0.4 mg NG DAILY [facility] Last Admin: 09/09/17 13:06 Dose: 0.4 mg - Labs Labs: 09/08/17 05:30 09/08/17 05:30 PT 14.3 Seconds (9.8-13.1) H 09/02/17 00:18 INR 1.3 (0.9-1.2) H 09/02/17 00:18 APTT 30.5 Seconds (25.6-37.1) 09/02/17 00:18 Attending/Attestation - Attestation I have personally seen and examined this patient.: Yes I have fully participated in the care of the patient.: Yes I have reviewed all pertinent clinical information, including history, physical exam and plan: Yes Notes (Text): 09/09/17 16:08 81 year old male with multiple medical problems including CAD, PNA, Dementia, Failure to thrive, Parkinson's disease, failure to thrive. Plan for PEG tomorrow.
--- NOTE | 2017-09-09 14:28 | CP.PCM.PN ---
Subjective - Date & Time of Evaluation Date of Evaluation: 09/09/17 Time of Evaluation: 09:20 - Subjective Subjective: F/U B/L PNA No AD , mild tremor U/E Objective - Vital Signs/Intake and Output Vital Signs (last 24 hours): Temp Pulse Resp BP Pulse Ox 97.6 F 85 22 145/70 93 L 09/09/17 08:05 09/09/17 08:05 09/09/17 08:05 09/09/17 13:07 09/09/17 08:05 Intake and Output: 09/09/17 09/09/17 06:59 18:59 Intake Total 1560 Output Total 650 Balance 910 - Medications Medications: Current Medications Albuterol/Ipratropium (Duoneb 3 Mg/0.5 Mg (3 Ml) Ud) 3 ml INH RQ6 [facility] Last Admin: 09/09/17 13:04 Dose: 3 ml Aspirin (Aspirin) 325 mg NG DAILY [facility] Last Admin: 09/08/17 08:48 Dose: 325 mg Atorvastatin Calcium (Lipitor) 40 mg NG DAILY [facility] Last Admin: 09/09/17 13:06 Dose: 40 mg Benztropine Mesylate (Cogentin) 0.5 mg NG BID [facility] Last Admin: 09/09/17 13:07 Dose: 0.5 mg Carbidopa/Levodopa (Sinemet) 1 tab NG Q6 [facility] Last Admin: 09/09/17 13:08 Dose: 1 tab Clopidogrel Bisulfate (Plavix) 75 mg PO DAILY [facility] Last Admin: 09/08/17 08:43 Dose: 75 mg Donepezil HCl (Aricept) 10 mg NG DAILY [facility] Last Admin: 09/09/17 13:07 Dose: 10 mg Enoxaparin Sodium (Lovenox) 40 mg SC DAILY [facility] PRN Reason: Protocol Last Admin: 09/09/17 13:09 Dose: 40 mg Entacapone (Comtan) 200 mg NG TID [facility] Last Admin: 09/09/17 13:08 Dose: 200 mg Fenofibrate (Tricor) 145 mg PO HS [facility] Last Admin: 09/08/17 22:06 Dose: 145 mg Meropenem 1 gm/ Sodium (Chloride) 100 mls @ 100 mls/hr IVPB Q8@0400,1200,2000 [facility] PRN Reason: Protocol Last Admin: 09/09/17 13:08 Dose: 100 mls/hr Insulin Human Lispro (Humalog) 0 units SC ACHS [facility] PRN Reason: Protocol Last Admin: 09/09/17 12:57 Dose: Not Given Memantine (Namenda) 5 mg NG BID [facility] Last Admin: 09/09/17 13:07 Dose: 5 mg Metoprolol Tartrate (Lopressor) 50 mg NG BID [facility] Last Admin: 09/09/17 13:07 Dose: 50 mg Pantoprazole Sodium (Protonix Susp) 40 mg NG DAILY [facility] Last Admin: 09/09/17 13:08 Dose: 40 mg Tamsulosin HCl (Flomax) 0.4 mg NG DAILY [facility] Last Admin: 09/09/17 13:06 Dose: 0.4 mg - Labs Labs: 09/08/17 05:30 09/08/17 05:30 PT 14.3 Seconds (9.8-13.1) H 09/02/17 00:18 INR 1.3 (0.9-1.2) H 09/02/17 00:18 APTT 30.5 Seconds (25.6-37.1) 09/02/17 00:18 - Constitutional Appears: Chronically Ill - Head Exam Head Exam: NORMAL INSPECTION - Eye Exam Eye Exam: PERRL - ENT Exam ENT Exam: Normal Exam - Neck Exam Neck Exam: Normal Inspection - Respiratory Exam Respiratory Exam: Decreased Breath Sounds (at bases) - Cardiovascular Exam Cardiovascular Exam: REGULAR RHYTHM - GI/Abdominal Exam GI & Abdominal Exam: Soft, Normal Bowel Sounds - Extremities Exam Extremities Exam: Normal Inspection - Back Exam Back Exam: NORMAL INSPECTION - Neurological Exam Neurological Exam: Awake (mild tremor U/E , no focal mortor deficit) - Skin Skin Exam: Warm Assessment and Plan (1) Bilateral pneumonia Status: Acute (2) HCAP (healthcare-associated pneumonia) Status: Acute
[2017-09-10] MEDS ORDERED: Potassium Chl 20 mEq in D5-NS 1,000 ML IV SCH (01:00)
[2017-09-10] MEDS: Albuterol-Ipratrop 3 mg / 0.5 (3 ml) UD INH SCH ×4 (01:00→19:48)
[2017-09-10] MEDS: Meropenem 1 GM in Sodium Chloride 0.9% 100 ML IVPB SCH ×3 (04:11→20:03)
[2017-09-10 06:59] LABS: BASO % 0.3 % (0.0-2.0); EOS # 0.5 K/uL (0.0-0.7); EOS % 9.4 % (0.0-4.0); HEMOGLOBIN 8.9 g/dL (12.0-18.0); LYMPH # 0.8 K/uL (1.0-4.3); LYMPH % 14.7 % (20.0-40.0); MEAN CELL VOLUME 84.1 fl (80.0-94.0); MEAN CORPUSCULAR HEMOGLOBIN 27.7 pg (27.0-31.0); MEAN PLATELET VOLUME 8.1 fl (7.2-11.7); MONO # 0.3 K/uL (0.0-0.8); NEUT # 3.9 K/uL (1.8-7.0); NEUT % 69.6 % (50.0-75.0); NRBC % 0.1 % (0.0-0.0); RBC 3.22 Mil/uL (4.40-5.90); RED CELL DISTRIBUTION WIDTH 14.8 % (11.5-14.5); WHITE BLOOD COUNT 5.6 K/uL (4.8-10.8)
[2017-09-10 07:12] LABS: ALB/GLOB RATIO 0.9 (1.0-2.1); ALBUMIN 2.8 g/dL (3.5-5.0); ALT/SGPT 28 U/L (21-72); AST/SGOT 33 U/L (17-59); BLOOD UREA NITROGEN 5 mg/dl (9-20); CALCIUM 8.8 mg/dL (8.4-10.2); GFR AFRICAN-AMERICAN > 60; GFR NON-AFRICAN AMERICAN > 60
[2017-09-10 07:13] LABS: PROTHROMBIN TIME 13.6 Seconds (9.8-13.1)
[2017-09-10 07:14] LABS: INR 1.2 (0.9-1.2)
[2017-09-10] MEDS: Insulin Lispro (humaLOG) 100 Units/ml Inj SC SCH ×4 (08:30→22:13)
[2017-09-10] MEDS: Enoxaparin 40 mg Syringe SC SCH (09:45)
[2017-09-10] MEDS: Pantoprazole 40 mg Susp UD NG SCH (09:47)
--- NOTE | 2017-09-10 11:36 | CP.PCM.PCO ---
Physician Communication Note - Physician Communication Note Physician Communication Note: Called pippa Hatfield for light to moderate sedation, relayed to Anes.
[2017-09-10] MEDS ORDERED: Lactated Ringer's 500 ML IV ONE (14:04)
[2017-09-10] MEDS ORDERED: Etomidate 20 mg/10ml Inj IV ONE (14:26)
[2017-09-10] MEDS ORDERED: Lidocaine PF 2% (5 ml) Inj (For Cardiac Arrhy) IV ONE (14:27)
--- NOTE | 2017-09-10 14:34 | PN ---
DATE: SUBJECTIVE: The patient is restless as compared to yesterday. PHYSICAL EXAMINATION: VITAL SIGNS: Blood pressure of 115/69, heart rate of 73, temperature of 98.2, and respirations of 20. HEENT: Pale conjunctivae. CHEST: Minimal rhonchi. HEART: S1 and S2 regular. EXTREMITIES: Contraction deformity of the lower extremity. LABORATORY DATA: Today's SMA-7 is within normal limits except for glucose of 121. BUN and creatinine are 5 and 0.6. Today's hemoglobin and hematocrit are 8.9 and 27.1. White count and platelet count are within normal limits. ASSESSMENT: 1. Status post non-ST elevation myocardial infarction. 2. New ischemic anterior T-wave changes. 3. Parkinsonism. 4. History of cerebrovascular accident. 5. Coronary artery disease with established significant three-vessel calcific coronary artery disease. RECOMMENDATIONS: Continue current aspirin, Cogentin, Lipitor, subcutaneous Lovenox, Lopressor, IV meropenem as well as IV fluid with potassium replacement. The case was discussed with Dr. Cummings, his gastrostomy feeding tube can be placed under local anesthesia with mild sedation. Lauro Alonzo MD
--- NOTE | 2017-09-10 16:56 | CP.PCM.PN ---
Subjective - Date & Time of Evaluation Date of Evaluation: 09/10/17 Time of Evaluation: 09:00 - Subjective Subjective: F/U PNA b/l. No A/D, mild tremor U/E. Objective - Vital Signs/Intake and Output Vital Signs (last 24 hours): Temp Pulse Resp BP Pulse Ox 98.8 F 86 20 165/76 H 99 09/10/17 15:11 09/10/17 15:46 09/10/17 15:46 09/10/17 15:46 09/10/17 15:46 Intake and Output: 09/10/17 09/10/17 06:59 18:59 Intake Total 3730 110 Output Total 2600 Balance 1130 110 - Medications Medications: Current Medications Albuterol/Ipratropium (Duoneb 3 Mg/0.5 Mg (3 Ml) Ud) 3 ml INH RQ6 [facility] Last Admin: 09/10/17 13:43 Dose: 3 ml Aspirin (Aspirin) 325 mg NG DAILY [facility] Last Admin: 09/10/17 09:44 Dose: Not Given Atorvastatin Calcium (Lipitor) 40 mg NG DAILY [facility] Last Admin: 09/10/17 09:45 Dose: Not Given Benztropine Mesylate (Cogentin) 0.5 mg NG BID [facility] Last Admin: 09/10/17 09:44 Dose: Not Given Carbidopa/Levodopa (Sinemet) 1 tab NG Q6 [facility] Last Admin: 09/10/17 09:47 Dose: Not Given Clopidogrel Bisulfate (Plavix) 75 mg PO DAILY [facility] Last Admin: 09/08/17 08:43 Dose: 75 mg Donepezil HCl (Aricept) 10 mg NG DAILY [facility] Last Admin: 09/10/17 09:44 Dose: Not Given Enoxaparin Sodium (Lovenox) 40 mg SC DAILY [facility] PRN Reason: Protocol Last Admin: 09/10/17 09:45 Dose: Not Given Entacapone (Comtan) 200 mg NG TID [facility] Last Admin: 09/10/17 13:44 Dose: Not Given Fenofibrate (Tricor) 145 mg PO HS [facility] Last Admin: 09/09/17 22:30 Dose: 145 mg Meropenem 1 gm/ Sodium (Chloride) 100 mls @ 100 mls/hr IVPB Q8@0400,1200,2000 [facility] PRN Reason: Protocol Last Admin: 09/10/17 12:05 Dose: 100 mls/hr Potassium Chloride/Dextrose/Sod Cl (Potassium Chl 20 Meq In D5-Ns) 1,000 mls @ 100 mls/hr IV .Q10H [facility] Stop: 09/11/17 12:18 Insulin Human Lispro (Humalog) 0 units SC ACHS [facility] PRN Reason: Protocol Last Admin: 09/10/17 11:45 Dose: Not Given Memantine (Namenda) 5 mg NG BID [facility] Last Admin: 09/10/17 09:47 Dose: Not Given Metoprolol Tartrate (Lopressor) 50 mg NG BID [facility] Last Admin: 09/10/17 09:45 Dose: Not Given Pantoprazole Sodium (Protonix Susp) 40 mg NG DAILY [facility] Last Admin: 09/10/17 09:47 Dose: Not Given Tamsulosin HCl (Flomax) 0.4 mg NG DAILY [facility] Last Admin: 09/10/17 09:44 Dose: Not Given - Labs Labs: 09/10/17 05:30 09/10/17 05:30 PT 13.6 Seconds (9.8-13.1) H 09/10/17 05:30 INR 1.2 (0.9-1.2) 09/10/17 05:30 APTT 30.5 Seconds (25.6-37.1) 09/02/17 00:18 - Constitutional Appears: Chronically Ill - Head Exam Head Exam: NORMAL INSPECTION - Eye Exam Eye Exam: PERRL - ENT Exam ENT Exam: Normal Exam - Neck Exam Neck Exam: Normal Inspection - Respiratory Exam Respiratory Exam: Decreased Breath Sounds (at bases) - Cardiovascular Exam Cardiovascular Exam: REGULAR RHYTHM - GI/Abdominal Exam GI & Abdominal Exam: Soft, Normal Bowel Sounds - Extremities Exam Extremities Exam: Normal Inspection - Back Exam Back Exam: NORMAL INSPECTION - Neurological Exam Neurological Exam: Awake (mild tremor U/E, no focal motor deficit.) - Skin Skin Exam: Warm Assessment and Plan (1) Bilateral pneumonia Status: Acute (2) HCAP (healthcare-associated pneumonia) Status: Acute - Assessment and Plan (Free Text) Plan: CXR B/L patcy infiltrates stable. Patient with no respiratory distress, lungs n bronchospasm, Pt cleared by C[employer] Material [employer]. Pt is pulmonary clear for EGD, anesthesia as pr Anesthesiology choice.
[2017-09-10] MEDS: Potassium Chl 20 mEq in D5-NS 1,000 ML IV SCH ×2 (18:02→23:00)
--- NOTE | 2017-09-10 19:05 | CP.PCM.PN ---
Subjective - Date & Time of Evaluation Date of Evaluation: 09/10/17 Time of Evaluation: 18:00 - Subjective Subjective: Patient seen and examined. Non-verbal, appeared calm post PEG tube placement. Objective - Vital Signs/Intake and Output Vital Signs (last 24 hours): Temp Pulse Resp BP Pulse Ox 98.8 F 71 20 133/66 98 09/10/17 15:11 09/10/17 18:07 09/10/17 18:07 09/10/17 18:07 09/10/17 18:07 Intake and Output: 09/10/17 09/11/17 18:59 06:59 Intake Total 110 Balance 110 - Medications Medications: Current Medications Albuterol/Ipratropium (Duoneb 3 Mg/0.5 Mg (3 Ml) Ud) 3 ml INH RQ6 [facility] Last Admin: 09/10/17 13:43 Dose: 3 ml Aspirin (Aspirin) 325 mg NG DAILY [facility] Last Admin: 09/10/17 09:44 Dose: Not Given Atorvastatin Calcium (Lipitor) 40 mg NG DAILY [facility] Last Admin: 09/10/17 09:45 Dose: Not Given Benztropine Mesylate (Cogentin) 0.5 mg NG BID [facility] Last Admin: 09/10/17 18:05 Dose: Not Given Carbidopa/Levodopa (Sinemet) 1 tab NG Q6 [facility] Last Admin: 09/10/17 18:06 Dose: Not Given Clopidogrel Bisulfate (Plavix) 75 mg PO DAILY [facility] Last Admin: 09/08/17 08:43 Dose: 75 mg Donepezil HCl (Aricept) 10 mg NG DAILY [facility] Last Admin: 09/10/17 09:44 Dose: Not Given Enoxaparin Sodium (Lovenox) 40 mg SC DAILY [facility] PRN Reason: Protocol Last Admin: 09/10/17 09:45 Dose: Not Given Entacapone (Comtan) 200 mg NG TID [facility] Last Admin: 09/10/17 18:05 Dose: Not Given Fenofibrate (Tricor) 145 mg PO HS [facility] Last Admin: 09/09/17 22:30 Dose: 145 mg Meropenem 1 gm/ Sodium (Chloride) 100 mls @ 100 mls/hr IVPB Q8@0400,1200,2000 [facility] PRN Reason: Protocol Last Admin: 09/10/17 12:05 Dose: 100 mls/hr Potassium Chloride/Dextrose/Sod Cl (Potassium Chl 20 Meq In D5-Ns) 1,000 mls @ 100 mls/hr IV .Q10H [facility] Stop: 09/11/17 12:18 Last Admin: 09/10/17 18:02 Dose: 100 mls/hr Insulin Human Lispro (Humalog) 0 units SC ACHS [facility] PRN Reason: Protocol Last Admin: 09/10/17 18:05 Dose: Not Given Memantine (Namenda) 5 mg NG BID [facility] Last Admin: 09/10/17 18:06 Dose: Not Given Metoprolol Tartrate (Lopressor) 50 mg NG BID [facility] Last Admin: 09/10/17 18:05 Dose: Not Given Pantoprazole Sodium (Protonix Susp) 40 mg NG DAILY [facility] Last Admin: 09/10/17 09:47 Dose: Not Given Tamsulosin HCl (Flomax) 0.4 mg NG DAILY [facility] Last Admin: 09/10/17 09:44 Dose: Not Given - Labs Labs: 09/10/17 05:30 09/10/17 05:30 PT 13.6 Seconds (9.8-13.1) H 09/10/17 05:30 INR 1.2 (0.9-1.2) 09/10/17 05:30 APTT 30.5 Seconds (25.6-37.1) 09/02/17 00:18 - Constitutional Appears: No Acute Distress - Head Exam Head Exam: ATRAUMATIC - Eye Exam Eye Exam: absent: Scleral icterus - ENT Exam ENT Exam: Mucous Membranes Moist - Neck Exam Neck Exam: absent: Meningismus - Respiratory Exam Respiratory Exam: absent: Rhonchi, Wheezes, Respiratory Distress - Cardiovascular Exam Cardiovascular Exam: REGULAR RHYTHM, +S1, +S2 - GI/Abdominal Exam GI & Abdominal Exam: Soft. absent: Tenderness - Rectal Exam Rectal Exam: Deferred - Extremities Exam Extremities Exam: absent: Normal Inspection (contracted) - Neurological Exam Neurological Exam: Altered (nonp-verbal) - Psychiatric Exam Psychiatric exam: Flat Affect - Skin Skin Exam: Dry, Intact Assessment and Plan - Assessment and Plan (Free Text) Assessment: 81 yo male with history of HTN, HLD, CAD, DM2 and Parkinson's dementia, bed bound sent from [place] because of fever episodes. CXR showed bilateral infiltrate. He was also found to have elevated Troponins. Patient was admitted and managed for NSTEMI and HCAP 1. Sepsis sepsis secondary to pneumonia and UTI urine culture grew ESBL E Coli sensitive to Meropenem no growth on blood culture continue Meropenem (6th day) Dr Solis on ID consult 2. HCAP probably secondary to aspiration CXray showed bilateral patchy infiltrate, no change from previous 3. NSTEMI/ CAD Continue ASA, Statin, Plavix and Metoprolol 4. DM2 BS controlled without medications DM diet, accucheck ACHS with SSI for now BMP in am 5. Parkinsonism / Frailty bed bound, non verbal with contracture Continue Carbidopa /Comtan/ Cogentin Aricept for dementia tolerated insertion of PEG tube under sedation 6. HTN BP stable continue Metoprolol 7. Anemia most likley anemia of chronic disease Hgb 8.9 8.DVT Prophylaxis on Lovenox
[2017-09-11] MEDS: Albuterol-Ipratrop 3 mg / 0.5 (3 ml) UD INH SCH ×4 (00:55→19:25)
[2017-09-11] MEDS: Meropenem 1 GM in Sodium Chloride 0.9% 100 ML IVPB SCH ×2 (04:16→12:21)
[2017-09-11] MEDS: Potassium Chl 20 mEq in D5-NS 1,000 ML IV SCH ×2 (04:18→12:15)
[2017-09-11] MEDS: Insulin Lispro (humaLOG) 100 Units/ml Inj SC SCH ×3 (06:54→16:54)
[2017-09-11 07:04] LABS: CALCIUM 8.9 mg/dL (8.4-10.2); GFR AFRICAN-AMERICAN > 60; GFR NON-AFRICAN AMERICAN > 60
[2017-09-11 07:58] LABS: BLOOD UREA NITROGEN 4 mg/dl (9-20)
[2017-09-11 08:17] VITALS: RESP 20
[2017-09-11] MEDS: Pantoprazole 40 mg Susp UD NG SCH (08:43)
[2017-09-11] MEDS: Enoxaparin 40 mg Syringe SC SCH (08:43)
--- NOTE | 2017-09-11 12:17 | CP.PCM.PN ---
Subjective - Date & Time of Evaluation Date of Evaluation: 09/11/17 Time of Evaluation: 10:00 - Subjective Subjective: Patinet s/p PEG insertion endoscopically yesterday. No acute events overnight. No fever or induration around the PEG site Objective - Vital Signs/Intake and Output Vital Signs (last 24 hours): Temp Pulse Resp BP Pulse Ox 98.5 F 93 H 20 134/78 97 09/11/17 08:16 09/11/17 08:43 09/11/17 08:16 09/11/17 08:43 09/11/17 08:16 Intake and Output: 09/11/17 09/11/17 06:59 18:59 Intake Total 1250 Output Total 900 Balance 350 - Medications Medications: Current Medications Albuterol/Ipratropium (Duoneb 3 Mg/0.5 Mg (3 Ml) Ud) 3 ml INH RQ6 [facility] [place] Last Admin: 09/11/17 07:18 Dose: 3 ml Aspirin (Aspirin) 325 mg NG DAILY [facility] Last Admin: 09/11/17 08:51 Dose: 325 mg Atorvastatin Calcium (Lipitor) 40 mg NG DAILY [facility] [place] Last Admin: 09/11/17 08:46 Dose: 40 mg Benztropine Mesylate (Cogentin) 0.5 mg NG BID [facility] [place] Last Admin: 09/11/17 08:45 Dose: 0.5 mg Carbidopa/Levodopa (Sinemet) 1 tab NG Q6 [facility] Last Admin: 09/11/17 09:04 Dose: 1 tab Clopidogrel Bisulfate (Plavix) 75 mg PO DAILY [facility] Last Admin: 09/08/17 08:43 Dose: 75 mg Donepezil HCl (Aricept) 10 mg NG DAILY [facility] [place] Last Admin: 09/11/17 08:42 Dose: 10 mg Enoxaparin Sodium (Lovenox) 40 mg SC DAILY [facility] PRN Reason: Protocol Last Admin: 09/11/17 08:43 Dose: 40 mg Entacapone (Comtan) 200 mg NG TID [facility] Last Admin: 09/11/17 08:44 Dose: 200 mg Fenofibrate (Tricor) 145 mg PO HS [facility] [place] Last Admin: 09/10/17 22:00 Dose: 145 mg Meropenem 1 gm/ Sodium (Chloride) 100 mls @ 100 mls/hr IVPB Q8@0400,1200,2000 [facility] PRN Reason: Protocol Last Admin: 09/11/17 04:16 Dose: 100 mls/hr Potassium Chloride/Dextrose/Sod Cl (Potassium Chl 20 Meq In D5-Ns) 1,000 mls @ 100 mls/hr IV .Q10H [facility] Stop: 09/11/17 12:18 Last Admin: 09/11/17 04:18 Dose: 100 mls/hr Insulin Human Lispro (Humalog) 0 units SC ACHS [facility] [place] PRN Reason: Protocol Last Admin: 09/11/17 06:54 Dose: Not Given Memantine (Namenda) 5 mg NG BID [facility] [place] Last Admin: 09/11/17 08:45 Dose: 5 mg Metoprolol Tartrate (Lopressor) 50 mg NG BID [facility] Last Admin: 09/11/17 08:43 Dose: 50 mg Pantoprazole Sodium (Protonix Susp) 40 mg NG DAILY [facility] Last Admin: 09/11/17 08:43 Dose: 40 mg Tamsulosin HCl (Flomax) 0.4 mg NG DAILY [facility] Last Admin: 09/11/17 08:44 Dose: 0.4 mg - Labs Labs: 09/10/17 05:30 09/11/17 05:30 PT 13.6 Seconds (9.8-13.1) H 09/10/17 05:30 INR 1.2 (0.9-1.2) 09/10/17 05:30 APTT 30.5 Seconds (25.6-37.1) 09/02/17 00:18 - Constitutional Appears: Well - Head Exam Head Exam: ATRAUMATIC, NORMAL INSPECTION, NORMOCEPHALIC - Eye Exam Eye Exam: EOMI, Normal appearance, PERRL - ENT Exam ENT Exam: Mucous Membranes Moist, Normal Exam - Neck Exam Neck Exam: Full ROM, Normal Inspection. absent: Lymphadenopathy - GI/Abdominal Exam GI & Abdominal Exam: Soft, Normal Bowel Sounds. absent: Tenderness Additional comments: PEG site with no induration - Extremities Exam Extremities Exam: Full ROM, Normal Capillary Refill, Normal Inspection. absent : Joint Swelling, Pedal Edema - Neurological Exam Neurological Exam: Awake - Psychiatric Exam Psychiatric exam: Normal Affect - Skin Skin Exam: Dry, Intact Assessment and Plan - Assessment and Plan (Free Text) Assessment: 81 year old male with multiple medical problems including CAD, PNA, Dementia, Failure to thrive, Parkinson's disease, s/p endoscopic PEG insertion without any complications Plan: Aspiration precautions PEG check done No erythema or induration Freely moveable Can start PEG feeds as tolerated No further GI intervention Thank you for letting us participate in the care of your patient
--- NOTE | 2017-09-11 15:06 | CP.PCM.PN ---
Subjective - Date & Time of Evaluation Date of Evaluation: 09/11/17 Time of Evaluation: 14:20 - Subjective Subjective: awake , no AD, follows commands , Patient's at bedside , talk with single words Objective - Vital Signs/Intake and Output Vital Signs (last 24 hours): Temp Pulse Resp BP Pulse Ox 98.5 F 93 H 20 134/74 97 09/11/17 10:00 09/11/17 10:00 09/11/17 10:00 09/11/17 10:00 09/11/17 10:00 Intake and Output: 09/11/17 09/11/17 06:59 18:59 Intake Total 1250 Output Total 900 Balance 350 - Medications Medications: Current Medications Albuterol/Ipratropium (Duoneb 3 Mg/0.5 Mg (3 Ml) Ud) 3 ml INH RQ6 [facility] Last Admin: 09/11/17 13:03 Dose: 3 ml Aspirin (Aspirin) 325 mg NG DAILY [facility] Last Admin: 09/11/17 08:51 Dose: 325 mg Atorvastatin Calcium (Lipitor) 40 mg NG DAILY [facility] Last Admin: 09/11/17 08:46 Dose: 40 mg Benztropine Mesylate (Cogentin) 0.5 mg NG BID [facility] Last Admin: 09/11/17 08:45 Dose: 0.5 mg Carbidopa/Levodopa (Sinemet) 1 tab NG Q6 [facility] Last Admin: 09/11/17 09:04 Dose: 1 tab Clopidogrel Bisulfate (Plavix) 75 mg PO DAILY [facility] Last Admin: 09/08/17 08:43 Dose: 75 mg Donepezil HCl (Aricept) 10 mg NG DAILY [facility] Last Admin: 09/11/17 08:42 Dose: 10 mg Enoxaparin Sodium (Lovenox) 40 mg SC DAILY [facility] PRN Reason: Protocol Last Admin: 09/11/17 08:43 Dose: 40 mg Entacapone (Comtan) 200 mg NG TID [facility] Last Admin: 09/11/17 12:27 Dose: 200 mg Fenofibrate (Tricor) 145 mg PO HS [facility] Last Admin: 09/10/17 22:00 Dose: 145 mg Meropenem 1 gm/ Sodium (Chloride) 100 mls @ 100 mls/hr IVPB Q8@0400,1200,2000 [facility] PRN Reason: Protocol Last Admin: 09/11/17 12:21 Dose: 100 mls/hr Insulin Human Lispro (Humalog) 0 units SC [facility] PRN Reason: Protocol Last Admin: 09/11/17 12:15 Dose: Not Given Memantine (Namenda) 5 mg NG BID [facility] Last Admin: 09/11/17 08:45 Dose: 5 mg Metoprolol Tartrate (Lopressor) 50 mg NG BID [facility] Last Admin: 09/11/17 08:43 Dose: 50 mg Pantoprazole Sodium (Protonix Susp) 40 mg NG DAILY [facility] Last Admin: 09/11/17 08:43 Dose: 40 mg Tamsulosin HCl (Flomax) 0.4 mg NG DAILY [facility] Last Admin: 09/11/17 08:44 Dose: 0.4 mg - Labs Labs: 09/10/17 05:30 09/11/17 05:30 PT 13.6 Seconds (9.8-13.1) H 09/10/17 05:30 INR 1.2 (0.9-1.2) 09/10/17 05:30 APTT 30.5 Seconds (25.6-37.1) 09/02/17 00:18 - Constitutional Appears: Chronically Ill - Head Exam Head Exam: NORMAL INSPECTION - Eye Exam Eye Exam: PERRL - ENT Exam ENT Exam: Normal Exam - Neck Exam Neck Exam: Normal Inspection - Respiratory Exam Respiratory Exam: Decreased Breath Sounds (at bases) - Cardiovascular Exam Cardiovascular Exam: REGULAR RHYTHM - GI/Abdominal Exam GI & Abdominal Exam: Soft, Normal Bowel Sounds Additional comments: PEG tube - Back Exam Back Exam: NORMAL INSPECTION - Neurological Exam Neurological Exam: Awake Additional comments: follows commands , mild tremor upper extremities - Psychiatric Exam Psychiatric exam: Flat Affect - Skin Skin Exam: Warm Assessment and Plan (1) Bilateral pneumonia Status: Acute (2) HCAP (healthcare-associated pneumonia) Status: Acute (3) S/P percutaneous endoscopic gastrostomy (PEG) tube placement Status: Acute - Assessment and Plan (Free Text) Assessment: Patient on DuoNeb , Mereren , Sinemet , s/p PEG tube, discharge planning
--- NOTE | 2017-09-11 16:04 | PN ---
DATE: SUBJECTIVE: The patient underwent gastrostomy feeding tube placement. No reported complications. PHYSICAL EXAMINATION: VITAL SIGNS: Blood pressure of 134/74, heart rate of 93, temperature of 98.5, and respirations of 20. HEENT: Normocephalic. CHEST: Clear. HEART: S1 and S2 regular. EXTREMITIES: Trace pedal edema. LABORATORY DATA: Today's SMA-7; sodium 141, potassium 3.9, chloride 108, CO2 25, glucose 124, BUN 4, and creatinine 0.6. ASSESSMENT: 1. Status post non-ST elevation myocardial infarction. 2. Paroxysmal atrial fibrillation. 3. Parkinsonism. 4. History of cerebrovascular accident. 5. History of 3-vessel coronary artery disease. RECOMMENDATIONS: Continue current aspirin 325 mg once a day, Aricept 10 mg once a day, Lopressor 50 mg a day, Lipitor 40 mg once a day, IV meropenem at 1 g every 8 hours, and TriCor at 145 mg once a day. Case was discussed with Dr. Green. The patient can be transferred to halfway. Lauro Alonzo MD
--- NOTE | 2017-09-11 16:13 | CP.PCM.DIS ---
Provider - Provider Date of Admission: 09/03/17 02:11 Attending physician: Lopez Hutchinson MD Primary care physician: Gerard Viera MD Consults: Dr Irma Le Time Spent in preparation of Discharge (in minutes): 25 Diagnosis - Discharge Diagnosis (1) Bilateral pneumonia Status: Acute Priority: High Comment: secondary to aspiration. on Meropenem (2) UTI due to extended-spectrum beta lactamase (ESBL) producing Escherichia coli Status: Acute Comment: continue Meropenem 1gm IVPB q 8hrs for another 7 days (3) NSTEMI (non-ST elevated myocardial infarction) Status: Acute Comment: continue ASA, Plavix, statin and Metoprolol (4) DM2 (diabetes mellitus, type 2) Status: Chronic Comment: BS controlled without diabetic meds (5) HTN (hypertension) Status: Chronic Comment: BP controlled. on Metoprolol (6) Parkinson disease Status: Chronic Comment: continue Sinemet, Comtan and Cogentin Hospital Course - Lab Results Lab Results: Micro Results 09/02/17 02:02 Blood Blood Culture - Final NO GROWTH AFTER 5 DAYS 09/02/17 00:18 Blood Blood Culture - Final NO GROWTH AFTER 5 DAYS 09/02/17 00:18 Blood Gram Stain - Final TEST NOT PERFORMED 09/05/17 06:43 Nose MRSA Culture (Admit) - Final MRSA NOT DETECTED 09/03/17 07:11 Urine,Catheterized Urine Culture - Final Escherichia Coli 09/03/17 12:30 Naris MRSA Culture (Admit) - Final MRSA NOT DETECTED Most Recent Lab Values WBC 5.6 K/uL (4.8-10.8) 09/10/17 05:30 RBC 3.22 Mil/uL (4.40-5.90) L 09/10/17 05:30 Hgb 8.9 g/dL (12.0-18.0) L 09/10/17 05:30 Hct 27.1 % (35.0-51.0) L 09/10/17 05:30 MCV 84.1 fl (80.0-94.0) 09/10/17 05:30 MCH 27.7 pg (27.0-31.0) 09/10/17 05:30 MCHC 33.0 g/dL (33.0-37.0) 09/10/17 05:30 RDW 14.8 % (11.5-14.5) H 09/10/17 05:30 Plt Count 300 K/uL (130-400) 09/10/17 05:30 MPV 8.1 fl (7.2-11.7) 09/10/17 05:30 Neut % (Auto) 69.6 % (50.0-75.0) 09/10/17 05:30 Lymph % (Auto) 14.7 % (20.0-40.0) L 09/10/17 05:30 Coffee % (Auto) 6.0 % (0.0-10.0) 09/10/17 05:30 Eos % (Auto) 9.4 % (0.0-4.0) H 09/10/17 05:30 Baso % (Auto) 0.3 % (0.0-2.0) 09/10/17 05:30 Neut # (Auto) 3.9 K/uL (1.8-7.0) 09/10/17 05:30 Lymph # (Auto) 0.8 K/uL (1.0-4.3) L 09/10/17 05:30 Coffee # (Auto) 0.3 K/uL (0.0-0.8) 09/10/17 05:30 Eos # (Auto) 0.5 K/uL (0.0-0.7) 09/10/17 05:30 Baso # (Auto) 0.0 K/uL (0.0-0.2) 09/10/17 05:30 PT 13.6 Seconds (9.8-13.1) H 09/10/17 05:30 INR 1.2 (0.9-1.2) 09/10/17 05:30 APTT 30.5 Seconds (25.6-37.1) 09/02/17 00:18 pCO2 32 mm/Hg (35-45) L 09/02/17 23:59 pO2 145 mm/Hg (80-100) H 09/02/17 23:59 HCO3 30.2 mmol/L (21-28) H 09/02/17 23:59 ABG pH 7.56 (7.35-7.45) H 09/02/17 23:59 ABG Total CO2 29.7 mmol/L (22-28) H 09/02/17 23:59 ABG O2 Saturation 99.9 % (95-98) H 09/02/17 23:59 ABG Base Excess 6.7 mmol/L (-2.0-3.0) H 09/02/17 23:59 Charles Test Yes 09/02/17 23:59 ABG Potassium 4.5 mmol/L (3.6-5.2) 09/02/17 23:59 A-a O2 Difference 528.0 mm/Hg 09/02/17 23:59 Sodium 140.0 mmol/L (132-148) 09/02/17 23:59 Chloride 110.0 mmol/L (98-107) H 09/02/17 23:59 Glucose 222 mg/dL (75-110) H 09/02/17 23:59 Lactate 1.5 mmol/L (0.7-2.1) 09/02/17 23:59 Vent Mode 100%nrb 09/02/17 23:59 FiO2 100.0 % 09/02/17 23:59 Sodium 141 mmol/l (132-148) 09/11/17 05:30 Potassium 3.9 MMOL/L (3.6-5.0) 09/11/17 05:30 Chloride 108 mmol/L (98-107) H 09/11/17 05:30 Carbon Dioxide 25 mmol/L (22-30) 09/11/17 05:30 Anion Gap 12 (10-20) 09/11/17 05:30 BUN 4 mg/dl (9-20) L 09/11/17 05:30 Creatinine 0.6 mg/dl (0.8-1.5) L 09/11/17 05:30 Est GFR ( Amer) > 60 09/11/17 05:30 Est GFR (Non-Af Amer) > 60 09/11/17 05:30 POC Glucose (mg/dL) 137 mg/dL (65-110) H 09/11/17 12:00 Random Glucose 124 mg/dL (75-110) H 09/11/17 05:30 Calcium 8.9 mg/dL (8.4-10.2) 09/11/17 05:30 Phosphorus 2.7 mg/dl (2.5-4.5) 09/11/17 14:31 Magnesium 2.0 MG/DL (1.6-2.3) 09/11/17 14:31 Total Bilirubin 0.3 mg/dl (0.2-1.3) 09/10/17 05:30 AST 33 U/L (17-59) 09/10/17 05:30 ALT 28 U/L (21-72) 09/10/17 05:30 Alkaline Phosphatase 54 U/L (38-126) 09/10/17 05:30 Troponin I 0.3470 ng/mL (0.00-0.120) H* 09/06/17 23:03 NT-Pro-B Natriuret Pep 6840 pg/ml (0-900) H 09/05/17 08:13 Total Protein 5.8 G/DL (6.3-8.2) L 09/10/17 05:30 Albumin 2.8 g/dL (3.5-5.0) L D 09/10/17 05:30 Globulin 3.0 gm/dL (2.2-3.9) 09/10/17 05:30 Albumin/Globulin Ratio 0.9 (1.0-2.1) L 09/10/17 05:30 Procalcitonin 6.25 NG/ML (0.19-0.49) H 09/04/17 04:50 Arterial Blood Potassium 4.5 mmol/L (3.6-5.2) 09/02/17 23:59 Urine Color Ana María (YELLOW) 09/03/17 04:01 Urine Clarity Cloudy (Clear) 09/03/17 04:01 Urine pH 7.0 (5.0-8.0) 09/03/17 04:01 Ur Specific Switzer 1.020 (1.003-1.030) 09/03/17 04:01 Urine Protein 30 mg/dL (NEGATIVE) 09/03/17 04:01 Urine Glucose (UA) Neg mg/dL (Normal) 09/03/17 04:01 Urine Ketones Trace mg/dL (NEGATIVE) 09/03/17 04:01 Urine Blood Negative (NEGATIVE) 09/03/17 04:01 Urine Nitrate Negative (NEGATIVE) 09/03/17 04:01 Urine Bilirubin Negative (NEGATIVE) 09/03/17 04:01 Urine Urobilinogen 0.2-1.0 mg/dL (0.2-1.0) 09/03/17 04:01 Ur Leukocyte Esterase Neg Juwan/uL (Negative) 09/03/17 04:01 Urine RBC (Auto) 5 /hpf (0-3) H 09/03/17 04:01 Urine Microscopic WBC 9 /hpf (0-5) H 09/03/17 04:01 Urine Bacteria Many (<OCC) H 09/03/17 04:01 Stool Occult Blood Negative (NEGATIVE) 09/07/17 08:53 Influenza Typ A,B (EIA) Negative for flu a/b (NEGATIVE) 09/02/17 00:18 Blood Type A POSITIVE 09/05/17 10:35 Blood Type Confirm A POSITIVE 09/05/17 10:57 Antibody Screen Negative 09/05/17 10:35 Crossmatch See Detail 09/05/17 10:35 BBK History Checked No verified bt 09/05/17 10:35 - Hospital Course Hospital Course: 81 yo male with history of HTN, CAD, DM2, Dementia and Parkinson's Disease bed bound with muscle contracture brought in from [facility] because of fever. CXray showed bilateral infiltrate and urine grew ESBL E coli. Sets of Troponins were also elevated. Patient was managed as NSTEMI, pneumonia and UTI. Patient was started on Rocephin and Zithromax then switched to Meropenem when the urine grew ESBL E Coli sensitive to that antibiotic. Due to difficulty of feeding and risk of another aspiration PEG tube was inserted. Patient being stable, he was sent back to [facility] with plant to continue Meropenem for another week and continue PEG tube feeding. Discharge Exam - Head Exam Head Exam: ATRAUMATIC, NORMAL INSPECTION, NORMOCEPHALIC - Eye Exam Eye Exam: absent: Scleral icterus - ENT Exam ENT Exam: Mucous Membranes Moist - Respiratory Exam Respiratory Exam: absent: Rales, Rhonchi, Wheezes, Respiratory Distress - Cardiovascular Exam Cardiovascular Exam: REGULAR RHYTHM, +S1, +S2 - GI/Abdominal Exam GI & Abdominal Exam: Soft. absent: Tenderness - Rectal Exam Rectal Exam: Deferred - Neurological Exam Neurological exam: Altered - Psychiatric Exam Psychiatric exam: Flat Affect - Skin Skin Exam: Dry, Intact Discharge Plan - Discharge Medications Prescriptions: Meropenem 1 gm IV Q8 #21 vial - Follow Up Plan Condition: FAIR Disposition: REHAB FACILITY/REHAB UNIT Instructions: Pneumonia, Adult (DC) Referrals: Jorge Le MD [Medical Doctor] - Lauro Alonzo MD [Staff Provider] - Alonzo Solis MD [Staff Provider] - Gerard Viera MD [Primary Care Provider] -
[2017-09-11 16:48] VITALS: TEMP 98.6; O2SAT 96
[2017-09-11 16:55] VITALS: BP 123/61; PULSE 98
--- NOTE | 2017-09-12 11:06 | PQF CHF ---
Dr. Hutchinson progress note dated 09/[address] Solis documented congestive heart failure exacerbation. Do you agree with this statement? If so please clarify type if known ie.. systolic, diastolic, systolic and diastolic. This form is a permanent part of the medical record Clarification of your documentation is requested to better reflect the severity of illness and intensity of treatment of your patient. Indicators present [x] Diagnosis of CHF and/or history of CHF [x] BNP > 200 6840 [] Imaging Finding of Pulmonary Edema /Pleural Effusions [] Fluid/Volume Overload [] Pitting edema [] Ejection Fraction < 40% (Indicative of Systolic Heart Failure) [] Ejection Fraction > 40% (Indicative of Diastolic Heart Failure) [] Dyspnea / Orthopenea / Paroxysmal Nocturnal Dyspnea [] Other: Location in the medical record that reflects the above clinical findings: [] Treatment Provided: [] PHYSICIAN'S RESPONSE Based on your medical judgment of the clinical indicators outlined above, are you treating this patient for a known or suspected: [] Acute CHF [] Systolic [] Diastolic [] Combined [] Chronic CHF [] Systolic [] Diastolic [] Combined [] Acute on Chronic CHF []Systolic [] Diastolic [] Combined [] CHF due hypertension [] Acute systolic []Chronic systolic [] Acute/ chronic systolic [] Other, please indicate: [] [] If Unable to Determine, please check the box, sign and date. Present On Admission (POA) Indicator: [] Present at the time of admission [] Not present at the time of admission [] Clinically Undetermined In responding to this query, please exercise your independent professional judgment. The fact that a question is asked does not imply that any particular answer is desired or expected. Thank you for your clarification on this documentation. If you have any questions please call:[ ] * Thank you, [ ]Carley Raphael network technical analyst RENEE
== END 2017-09-11 20:10 | DRG 177 ==
LOC: H.ER 22:53 → H.ERHOLD 09-03 01:19 → UNDOADMIN 09-03 01:19 → H.ERHOLD 09-03 02:11 → H.ICU/CCU 09-03 10:00 → H.MEDSURG1 09-06 00:21
PROVIDERS: ADMIT Internal Medicine; ATTEND Internal Medicine
PROC: 30233N1 Transfusion of Nonautologous Red Blood Cells into Peripheral Vein, Percutaneous Approach (ICD-10-PCS; principal; 2017-09-05)
DX: J69.0 Pneumonitis due to inhalation of food and vomit (principal); A41.9 Sepsis, unspecified organism; I21.4 Non-ST elevation (NSTEMI) myocardial infarction; N39.0 Urinary tract infection, site not specified; I50.32 Chronic diastolic (congestive) heart failure; D63.8 Anemia in other chronic diseases classified elsewhere; E78.5 Hyperlipidemia, unspecified; G20 Parkinson's disease; F02.80 Dementia in other diseases classified elsewhere, unspecified severity, without behavioral disturbance, psychotic disturbance, mood disturbance, and anxiety; I25.10 Atherosclerotic heart disease of native coronary artery without angina pectoris; Z95.1 Presence of aortocoronary bypass graft; Z74.01 Bed confinement status; Z86.73 Personal history of transient ischemic attack (TIA), and cerebral infarction without residual deficits; Z16.12 Extended spectrum beta lactamase (ESBL) resistance; R62.7 Adult failure to thrive; Z87.891 Personal history of nicotine dependence; Z85.46 Personal history of malignant neoplasm of prostate; R13.10 Dysphagia, unspecified; B96.20 Unspecified Escherichia coli [E. coli] as the cause of diseases classified elsewhere; I11.0 Hypertensive heart disease with heart failure; Y95 Nosocomial condition; M62.40 Contracture of muscle, unspecified site; R54 Age-related physical debility; L89.152 Pressure ulcer of sacral region, stage 2; I35.1 Nonrheumatic aortic (valve) insufficiency; E87.6 Hypokalemia; I48.0 Paroxysmal atrial fibrillation; E11.65 Type 2 diabetes mellitus with hyperglycemia; Z66 Do not resuscitate

== ENCOUNTER 2017-09-21 12:38 | Emergency (ER) | payer MEDICARE, MEDICAID ==
[2017-09-21 12:39] VITALS: PULSE 87; BMI 25.8
--- NOTE | 2017-09-21 13:09 | ED PDOC ---
HPI: Abdomen <KuSarahmago Corrigan - Last Filed: 09/21/17 14:50> Chief Complaint (Provider): G TUBE LEAKING History Per: Patient (81 Y/O MALE H/O DEMENTIA HERE FOR LEAKING G TUBE. G TUBE PLACED 09/11/[address] CARRASCO. NO FEVERS/CHILLS.) <Breezy Cummings - Last Filed: 09/21/17 16:17> Time Seen by Provider: 09/21/17 13:07 Chief Complaint (Nursing): Abdominal Pain Past Medical History <ElmiraSarahmago Corrigan - Last Filed: 09/21/17 14:50> Reviewed: Historical Data, Nursing Documentation, Vital Signs - Medical History PMH: Anxiety, CAD (triple vessel disease), Dementia, Diabetes, HTN, Hyperlipidemia, Parkinson's Disease, Pneumonia - Surgical History Surgical History: CABG - Family History Family History: States: Unknown Family Hx - Immunization History Hx Tetanus Toxoid Vaccination: No Hx Influenza Vaccination: No Hx Pneumococcal Vaccination: No <Breezy Cummings - Last Filed: 09/21/17 16:17> Vital Signs: Last Vital Signs Temp 98.7 F 09/21/17 12:59 Pulse 80 09/21/17 13:03 Resp 20 09/21/17 13:03 BP 143/73 09/21/17 13:20 Pulse Ox 99 09/21/17 14:53 - Home Medications Home Medications: Ambulatory Orders Medication Instructions Recorded Benztropine [Cogentin] 0.5 mg PO BID 08/21/15 Donepezil [Aricept] 10 mg PO HS 08/21/15 Entacapone [Comtan] 200 mg PO TID 08/21/15 Magnesium Oxide [Magnesium] 400 mg PO BID 08/21/15 Rasagiline Mesylate [Azilect] 1 mg PO DAILY 08/21/15 Rivastigmine 4.6 mg/24 hr [Exelon 4.6 mg TD Q24H 08/21/15 4.6 mg/24 hr Patch] Simvastatin 20 mg PO HS 08/21/15 Tamsulosin [Flomax] 0.4 mg PO DAILY 08/21/15 rOPINIRole [Requip] 1 mg PO TID 08/21/15 tiZANidine [Zanaflex] 2 mg PO BID 08/21/15 Aspirin [Aspirin Chewable] 81 mg PO DAILY 09/08/15 Fenofibrate [Tricor] 145 mg PO HS #0 tab 09/17/15 Insulin Human Regular [Novolin R] 0 unit SC ACHS #0 unit 09/17/15 Metoprolol Succinate 100 mg PO DAILY #0 09/17/15 Carbidopa/Levodopa 50/200 CR 1 tab PO Q6H #0 tab 09/21/15 [Sinemet CR] Acetaminophen [Acephen] 650 mg RC Q4 PRN 09/03/17 Albuterol 0.083% [Albuterol 0.083% 3 ml IH Q6 PRN 09/03/17 Inhal Sejal (2.5 mg/3 ml) UD] Cyproheptadine HCl 2 mg PO TID 09/03/17 Docusate [Colace] 100 mg PO BID 09/03/17 Ferrous Sulfate [Feosol] 325 mg PO DAILY 09/03/17 Magnesium Hydroxide [Milk of 30 ml PO DAILY 09/03/17 Magnesia] Memantine HCl 10 mg PO BID 09/03/17 Midodrine [Proamatine] 2.5 mg PO BID 09/03/17 Pantoprazole [Protonix Susp] 20 mg PO DAILY 09/03/17 Polyethylene Glycol 3350 [Miralax] 17 gm PO HS 09/03/17 Sennosides [Senna Concentrate] 8.6 mg PO BID 09/03/17 Silver Sulfadiazine 1% [Silvadene 1 applic TP BID 09/03/17 1%] Tobramycin 0.3% [Tobrex 0.3% Ophth 2 drop LEFTEYE BID 09/03/17 Oint] Vits A and D/White Pet/Lanolin [A 42.5 gm TP DAILY 09/03/17 and D Ointment] amLODIPine [Norvasc] 5 mg PO DAILY 09/03/17 Meropenem 1 gm IV Q8 #21 vial 09/11/17 - Allergies Allergies/Adverse Reactions: Allergies Allergy/AdvReac Type Severity Reaction Status Date / Time No Known Allergies Allergy Verified 09/02/17 22:55 Review of Systems ROS Statement: Except As Marked, All Systems Reviewed And Found Negative <Breezy Cummings - Last Filed: 09/21/17 16:17> Physical Exam - Reviewed Nursing Documentation Reviewed: Yes Vital Signs Reviewed: Yes - Physical Exam Appears: Positive for: Well, Non-toxic, No Acute Distress Head Exam: Positive for: ATRAUMATIC, NORMAL INSPECTION, NORMOCEPHALIC Skin: Positive for: Normal Color, Warm, DRY Eye Exam: Positive for: EOMI, Normal appearance, PERRL ENT: Positive for: Normal ENT Inspection Neck: Positive for: Normal, Painless ROM Cardiovascular/Chest: Positive for: Regular Rate, Rhythm Respiratory: Positive for: CNT, Normal Breath Sounds Gastrointestinal/Abdominal: Positive for: Normal Exam, Soft, Other (NO SURROUNDING ERYTHEMA NOTED. G TUBE NOTED IN PLACE) Back: Positive for: Normal Inspection Extremity: Positive for: Normal ROM Neurologic/Psych: Positive for: Alert, Oriented <Breezy Cummings - Last Filed: 09/21/17 16:17> - ECG Pulse Ox Interpretation: Normal <Sarah Ku - Last Filed: 09/21/17 14:50> - ECG O2 Sat by Pulse Oximetry: 99 <Breezy Cummings - Last Filed: 09/21/17 16:17> - Progress ED Course And Treament: D/W GI FELLOW DR. PATEL. WILL SEND FOR STUDY TO EVALUATE G TUBE PLACEMENT. Xry: G tube in place as per radiology d/w GI fellow d/w Patient's PMD Dr. Viera. (Breezy Cummings) Medical Decision Making <Sarah Ku - Last Filed: 09/21/17 14:50> <Breezy Cummings - Last Filed: 09/21/17 16:17> Medical Decision Making: Time: 1414 Plan: -- KUB [Abdomen (flat plate) 1 View] RAD -- Gastric Tube Assessment As Ordered Scribe Attestation: Documented by Noe Francisco, acting as a scribe for Breezy Cummings PA-C Provider Scribe Attestation: All medical record entries made by the Scribe were at my direction and personally dictated by me. I have reviewed the chart and agree that the record accurately reflects my personal performance of the history, physical exam, medical decision making, and the department course for this patient. I have also personally directed, reviewed, and agree with the discharge instructions and disposition. (Breezy Cummings) Disposition <Sarah Ku - Last Filed: 09/21/17 14:50> - Patient ED Disposition Is Patient to be Admitted: No - Disposition Disposition: Routine/Home Disposition Time: 16:16 <Breezy Cummings - Last Filed: 09/21/17 16:17> - Clinical Impression Clinical Impression: Gastrostomy tube in place - Disposition Condition: STABLE Instructions: How to Care for Your PEG Tube Forms: [facility] ([place]ian)
[2017-09-21] MEDS ORDERED: Diatriz Meglumine/Diatriz Sod 30 ML BOTTLE PO ONE (14:14)
[2017-09-21] MEDS ORDERED: Diatrizoate Meglumine 120 ML SOLN PO ONE (14:32)
--- NOTE | 2017-09-21 15:37 | RAD ---
HISTORY: POST GASTROVIEW ADMINISTRATION COMPARISON: No prior. FINDINGS: BOWEL: Preliminary radiograph demonstrates gastrostomy tube in the left upper quadrant laterally. Extensive aortic iliac vascular calcifications are identified. Following manual administration of diluted Gastrografin through this pre-existing gastrostomy tube, the gastric lumen is opacified follow by small-bowel. No definitive extravasation of contrast is appreciated. No fluid was identified extravasated around the gastrostomy site. BONES: Degenerative thoracolumbar spondylosis is noted. No gross fracture. OTHER FINDINGS: None. IMPRESSION: Intra luminal gastric placement of gastrostomy tube is been proven as discussed above. No extravasation of oral contrast material is demonstrated grossly.
[2017-09-21 23:16] VITALS: BP 139/87; PULSE 100; RESP 18; TEMP 98; O2SAT 98
== END 2017-09-21 20:30 ==
LOC: H.ER 12:38
DX: Z93.1 Gastrostomy status (principal); E11.9 Type 2 diabetes mellitus without complications; E78.5 Hyperlipidemia, unspecified; G20 Parkinson's disease; I10 Essential (primary) hypertension; Z95.1 Presence of aortocoronary bypass graft; I25.10 Atherosclerotic heart disease of native coronary artery without angina pectoris
CPT/HCPCS: 74018; 99285; Q9958